=== PATIENT | male | born 1970 | race Caucasian/White ===

== ENCOUNTER 2020-02-09 16:47 | Outpatient (REF) | payer OTHER, SELFPAY | END 2020-02-09 16:48 | disposition home or self-care (01) | LOC: HO.LAB 16:47 | PROVIDERS: Visit Provider Internal Medicine | DX: Z20.828 Contact with and (suspected) exposure to other viral communicable diseases (principal) | CPT/HCPCS: C9803; U0003 ==

== ENCOUNTER 2021-09-30 08:52 | Outpatient (REF) | payer OTHER, SELFPAY ==
[2021-09-30 11:19] LABS: MANUAL DIFF FLAG NO
[2021-09-30 11:32] LABS: Basophils Absolute Auto 0.1 X10*3/uL (0.0-0.2); Basophils Percent Auto 0.8 % (0-2); Eosinophils Absolute Auto 0.3 X10*3/uL (0.0-0.4); Eosinophils Percent Auto 3.2 % (0-4); Hematocrit 46.3 % (42.0-52.0); Hemoglobin 15.5 g/dl (14.0-18.0); Imm Gran Abs Auto 0.03 X10*3/uL (0.00-0.03); Imm Gran Pct Auto 0.4 % (0.0-0.4); Lymphocytes Absolute Auto 2.6 X10*3/uL (1.2-4.9); Lymphocytes Percent Auto 30.6 % (20-40); Mean Corpuscular HGB Conc 33.5 g/dl (31.0-36.0); Mean Corpuscular Hemoglobin 29.3 pg (27.0-33.0); Mean Corpuscular Volume 87.5 fL (80.0-98.0); Mean Platelet Volume 11.3 fL (9.4-12.4); Monocytes Absolute Auto 0.5 X10*3/uL (0.1-1.2); Platelet Count 279 X10*3/uL (160-400); Red Blood Count 5.29 X10*6/uL (4.60-5.80); Red Cell Distribution Width 12.6 % (11.0-16.0); White Blood Count 8.5 X10*3/uL (4.8-10.8)
[2021-09-30 11:37] LABS: Estimated Average Glucose 235 mg/dL; Hemoglobin A1c % 9.8 %
[2021-09-30 11:39] LABS: Appearance Urine Clear; Color Urine Yellow; Glucose Urine UA 100 mg/dL (Negative); Leukocyte Esterase Urine Negative (Negative); Nitrite Urine Negative (Negative); PH 5.5 (5.0-8.0); Specific Gravity - Urine 1.025 (1.005-1.025); Urine Blood Negative (Negative); Urine Ketones Negative (Negative); Urine Protein Negative (Neg-Trace)
[2021-09-30 12:00] LABS: Alanine Aminotransferase 77 U/L (0-40); Albumin Level 4.2 g/dL (3.5-5.0); Alkaline Phosphatase 112 U/L (39-117); Anion Gap 14 (12-20); Aspartate Amino Transferase 19 U/L (5-37); Bilirubin Total 0.6 mg/dL (0.0-1.0); Blood Urea Nitrogen 13 mg/dL (9-16); Calcium 9.6 mg/dL (8.4-10.2); Carbon Dioxide 27 mmol/L (22-29); Chloride 100 mmol/L (96-108); Cholesterol 210 mg/dL; Estimated Glomerular Filt Rate > 60; Glucose Fasting 292 mg/dL (60-99); HDL Cholesterol 41 mg/dL; LDL Cholesterol Calculated 138 mg/dl; Potassium 4.4 mmol/L (3.3-5.1); Sodium 137 mmol/L (135-145); Triglycerides 156 mg/dL
[2021-09-30 12:08] LABS: Prostate Specific Antigen Scr 0.83 ng/mL (<0.05-4.0); TSH reflex Free T4 1.35 uIU/mL (0.32-4.0)
[2021-09-30 12:28] LABS: Creatinine Urine 194.63 mg/dL; Microalbum/Creatinine Ratio Ur 6.1 ug/mg cr
== END 2021-09-30 08:53 | disposition home or self-care (01) ==
LOC: HO.HMGCLDS 08:52
PROVIDERS: PCP Nurse Practitioner Family; Visit Provider Nurse Practitioner Family
DX: Z00.00 Encounter for general adult medical examination without abnormal findings (principal); Z12.5 Encounter for screening for malignant neoplasm of prostate; E11.9 Type 2 diabetes mellitus without complications
CPT/HCPCS: 36415; 80053; 80061; 81003; 82043; 83036; 84153; 84443; 85025

== ENCOUNTER → 2021-10-16 12:56 | Outpatient (REF) | payer OTHER, SELFPAY ==
--- NOTE | 2021-10-16 12:59 | CA_ITS ---
Transthoracic Echocardiogram Patient (Last, First, Middle): Lawrence Bustamante F Gender: Male Date of : 1970 Age: 51 Procedure Date: 10/16/2021 Procedure Type: Transthoracic Echocardiogram Location: OP Height: 190.5 cm Weight: 129.28 kg BSA: 2.55 m2 Heart Rate: 69 bpm BP: 145 / 80 mmHg Software Integration Developer: SALVADOR Referring MD: Jose Alejandro Gillis [facility] Transportation Mechanic: Tim Mcwilliams MD Symptoms: Z82.49 - Family history of ischemic heart disease and other diseases of ... Study Quality: Technically Difficult/Contrast ECG Rhythm: Sinus Conclusions: - 1. Technically limited study despite use of contrast agent 2. Normal LV systolic function with grade 1 diastolic dysfunction 3. Limited visualization of cardiac valves with normal cardiac valvular Doppler Findings Procedure Information Contrast agent, definity, is being given per protocol without apparent complications. Left Ventricle Normal left ventricular size, thickness, and systolic function. The visually estimated ejection fraction is between 60-65%. Spectral Doppler is indicative of an impaired relaxation filling pattern. E/E prime ratio is <8, consistent with normal filling pressures. Evidence suggests grade I (mild) diastolic dysfunction. Right Ventricle Normal right ventricular cavity size. Atria The left atrium is normal in size. Interatrial shunt cannot be excluded. The right atrium was not well visualized. Aortic Valve The aortic valve was not well visualized. Mitral Valve The mitral valve was not well visualized. There is trace mitral valve regurgitation. There is no mitral valve stenosis. Pulmonic Valve The pulmonic valve was not well visualized. Tricuspid Valve The tricuspid valve was not well visualized. Tricuspid regurgitation envelope is inadequate for calculation of right ventricular systolic pressure. Great Vessels All visible segments of the aorta are normal in size. The pulmonary artery was not well visualized. Venous The inferior vena cava is normal in size. Pericardium/Pleural The pericardium was not well visualized. Prior Study Comparison No prior study available for comparison. Measurements 2D Linear Measurements IVSd: 1.18 0.6-0.9/0.6-1.0 cm LVIDd: 4.65 3.9-5.3/4.2-5.9 cm LVIDd Index: 1.82 2.4-3.2/2.2-3.1 cm/m2 LVIDs: 2.37 2.0-3.6 cm LVPWd: 0.89 0.7-1.1 cm LA Diam: 3.10 2.7-3.8/3.0-4.0 cm LAIDs Index: 1.22 1.5-2.3 cm/m2 LV Mass: 211.46 67-162/88-224 g LV Mass Index: 82.93 43-95/49-115 g/m2 LVOT Diam: 2.10 3.0+(-)1.3 cm 2D Systolic Function EF 4C: 58.20 >55% EF 2C: 60.80 >55% EF BiP: 60.30 >55% Mitral Valve MV Pk E: 0.77 MV PK A: 0.70 MV Decel Time: 265.00 E/A: 1.10 E'Lateral: 11.20 E'Medial: 10.30 E/E' Med: 7.40 E/E' Lat: 6.80 PHT: 78.00 MVA PHT: 2.82 Decel [place]: 2.89 Aortic Valve AoV Pk Gerry: 1.39 AoV Mn Gerry: 1.02 AoV VTI: 0.25 AoV Pk Grad: 8.00 Aov Mn Grad: 5.00 WARREN Cont.VTI: 2.87 LVOT LVOT Pk Gerry: 1.01 LVOT Mn Gerry: 0.74 LVOT VTI: 0.20 LVOT Pk Grad: 4.00 LVOT Mn Grad: 2.00 LVOT Diam: 2.10 LVOT Area: 3.46 Diastolic Function MV Pk E: 0.77 MV Pk A: 0.70 E/A: 1.10 E'Medial: 10.30 E/E' Med: 7.40 E' Laterial: 11.20 E/E' Lat: 6.80 Right Ventricle TAPSE (mm): 20.90 TVS' Gerry: 12.00 Great Vessels Aorta Sinus of Valsalva: 3.20 2.0-3.5 cm Ao Asc: 3.30 2.1-3.4 cm Pulmonary Valve PV Pk Gerry: 1.11 Peak PV Grad: 5.00 Updated in Other Vendor System with Status of Final Tim Mcwilliams MD electronically signed on 10/16/2021 4:19:23 PM with status of Final
== END ==
LOC: HO.CARD 12:56
PROVIDERS: Visit Provider Nurse Practitioner Family
DX: Z82.49 Family history of ischemic heart disease and other diseases of the circulatory system (principal)
CPT/HCPCS: 93306; Q9957

== ENCOUNTER 2021-10-23 08:28 | Outpatient (REF) | payer OTHER, SELFPAY ==
--- NOTE | ~2021-10-23 | US_ITS ---
EXAMINATION: US ABDOMEN LIMITED CLINICAL INFORMATION: Other specified diseases of the liver. Liver cyst. COMPARISON: Abdominal ultrasound 03/18/2019. Limited abdominal ultrasound 11/30/2018. TECHNIQUE: Real-time imaging of the right upper quadrant abdominal viscera. FINDINGS: PANCREAS: Normal. LIVER: The liver is normal in size. The liver contour is normal. The liver is echogenic with an area of focal fatty sparing around the gallbladder. There is an anechoic cyst right hepatic lobe measuring 1.1 x 0.86 x 1.0 cm. There is no intrahepatic biliary duct dilatation seen. GALLBLADDER: Normal. The gallbladder is physiologically distended without evidence of stones, sludge, polyps, wall thickening or pericholecystic fluid. COMMON BILE DUCT: Normal in caliber measuring 0.3 cm in diameter. RIGHT KIDNEY: Normal. No hydronephrosis. No renal calculi or focal parenchymal lesions. The kidney measures 11.6 cm in maximum dimension. FREE FLUID: None. US/US abdomen limited IMPRESSION: Anechoic right hepatic lobe cyst measuring 1.1 cm. Previously, a left hepatic lobe cyst was seen measuring 1.3 x 1.2 x 1.5 cm. That cyst is not visualized on the present exam. Mild hepatic steatosis, stable.
== END 2021-10-23 08:29 | disposition home or self-care (01) ==
LOC: HO.HMGCX 08:28
PROVIDERS: Visit Provider Nurse Practitioner Family
DX: K76.89 Other specified diseases of liver (principal)
CPT/HCPCS: 76705

== ENCOUNTER → 2022-06-20 10:45 | Outpatient (BNVA) | payer SELFPAY | PROVIDERS: PCP Nurse Practitioner Family; Visit Provider Physician Assistant Medical | DX: Z02.79 Encounter for issue of other medical certificate (principal) ==

== ENCOUNTER 2022-08-19 13:16 | Outpatient (AMB) | payer OTHER, SELFPAY ==
--- NOTE | 2022-08-19 13:19 | MHC.PC.OV ---
Vital Signs 08/19/22 13:20 Height 6 ft 3 in Weight 294 lb 6 oz BMI 36.8 BP 130/74 Blood Pressure Location Rt brachial Position Sitting Pulse 54 Pulse Source Pulse Oximeter Pulse Oximetry (%) 96 Oxygen Delivery Method Room Air Intake Visit Reasons: 4 month follow up On medication Allergies No Known Allergies Allergy (Verified 08/19/22 13:21) Medication List - Last Reconciled 08/19/22 by AARON Carpenter alprazolam 0.5 mg PO DAILY PRN 30 days betamethasone dipropionate 0.05% 1 appl topical DAILY PRN FreeStyle Faizan 2 [place] (flash glucose scanning reader) tid testing NS FreeStyle Faizan 2 Sensor (flash glucose sensor) tid testing NS metformin 1,000 mg PO BID 90 days peg 3350-electrolytes 236-22.74-6.74 -5.86 gram (Golytely) 240 mL PO Q10M 1 day sildenafil 50 mg PO DAILY PRN 12 days Tobacco use date assessed: 08/19/22 Dental Screening Dental Screen Date: 08/19/22 Did you have a dental visit in the last 12 months?: Yes Did you have a dental problem in the last 6 months where you did not have access to dental care?: No Was dental information given to patient?: Patient has dentist HPI 4 month follow up On medication HPI Details Pt is a diabetic, managed with metformin 1000mg bid. A1c in office today is 8.0. Microalbumin is up to date. Denies polyuria, polydipsia, and neuropathy. Pt denies any signs and symptoms of hypoglycemia and does know how to correct it. Will start ozempic 0.25mg. Pt was treated for an assumed tick bite to his LUE in May, see walk-in documentation. He was given doxy for 14 days. Pt reports ongoing joint pains. Will order tick testing. Pt would like to know his blood type, will order labs. [facility] Medical History Erectile dysfunction Surgical History Hx of colonoscopy Family History Sister Mental health disorder Sister Mental health disorder Mother Mental health disorder Social History Housing: House Patient Tobacco Use Status: Former Tobacco user Quit Date: quit 1993 e-Cigarette/Vaping Use: Never Used Second Hand Smoke Exposure: No service: No Current occupational status: employed Current occupation: [employer] Current occupational exposures/hazards: No Cognitive needs: No Hearing needs: No Vision needs: No Questionnaire Thrive Questionnaire Date Thrive assessed: 09/30/21 LEONEL-7 AMB Questionnaire LEONEL-7 Date LEONEL - 7 assessed: 09/30/21 Source: Developed by Drs. Emmanuel Harrison, Tonya Sargent, Brett Wadsworth and colleagues, with an educational chicho from [employer]. Review of Systems Const Reports as per HPI Physical exam (Primary Care) Vital Signs: Last Vital Signs Pulse 54 08/19/22 13:20 BP 130/74 08/19/22 13:20 Pulse Ox 96 08/19/22 13:20 Oxygen Delivery Method Room Air 08/19/22 13:20 BMI result Body Mass Index 36.8 Tobacco/Smoking Status: Tobacco use Status Tobacco use date assessed 08/19/22 08/19/22 13:22 Patient Tobacco Use Status Former Tobacco user 08/19/22 13:22 e-Cigarette/Vaping Use Never Used 08/19/22 13:22 Thrive Assessment: Date of Thrive Assessment Date Thrive assessed 09/30/21 08/19/22 13:22 Const General: cooperative Nutritional Appearance: obese Orientation/consciousness: patient oriented x3 Resp Auscultation: clear to auscultation bilaterally Neuro General: patient oriented x3 Extrem Other: bilat feet: + sensation with use of monofilament Psych Appearance: grossly normal Mental Status: mental status grossly normal Speech and movement: Normal speech and movement present Affect: normal affect Attitude: cooperative Thought process: Normal thought process present Thought content: Normal thought content present Insight: Good insight present (Psych) Judgement: Good judgement present (Psych) Results AMB Hemoglobin A1c AMB Hemoglobin A1c 8.0 % Last Edit by Aileen Mello CMA on 08/19/22 13:44 Results Reviewed Results Reviewed: Laboratory Last Values Hgb A1c (Clinic) 8.0 % (4.0-6.0) H 08/19/22 13:42 Assessment and Plan Assessment & Plan (1) Tick bite: Code(s): W57.XXXA - Bitten or stung by nonvenomous insect and other nonvenomous arthropods, initial encounter (2) Diabetes: Code(s): E11.9 - Type 2 diabetes mellitus without complications (3) Blood typing encounter: Code(s): Z.83 - Encounter for blood typing (4) Screening PSA (prostate specific antigen): Code(s): Z12.5 - Encounter for screening for malignant neoplasm of prostate Plan The patient agreed to the use of a medical billing assistant for this encounter. Scribed for Jose Alejandro Gillis [employer]ACH[employer] LEAD[employer]- by Dee Dave medical billing assistant, on 08/19/2022 at 13:45 EST. Orders: Orders Tick-borne Disease Molecular Today W57.XXXA - Bitten or stung by nonvenomous insect and other nonvenomous arthropods, initial encounter Microalbumin, Random (w Creat) Today E11.9 - Type 2 diabetes mellitus without complications ABO RH Type Today Z01.83 - Encounter for blood typing Prostate Specific Antigen Scr Today Z12.5 - Encounter for screening for malignant neoplasm of prostate AMB Hemoglobin A1c Today E11.9 - Type 2 diabetes mellitus without complications Medications: New semaglutide (Ozempic) for 4 weeks 0.25 mg (0.4 mL) subcut QWEEK 3 mL 0RF Coding Level of Care Code Est Pt Level 3 (49488) Diagnoses Tick bite W57.XXXA Diabetes E11.9 Blood typing encounter Z.83 Screening PSA (prostate specific antigen) Z12.5
[2022-08-19 13:20] VITALS: BP 130/74; PULSE 54; O2SAT 96; BMI 36.8
== END 2022-08-19 14:15 | disposition home or self-care (01) ==
PROVIDERS: Visit Provider Nurse Practitioner Family
DX: S40.862D Insect bite (nonvenomous) of left upper arm, subsequent encounter (principal); W57.XXXD Bitten or stung by nonvenomous insect and other nonvenomous arthropods, subsequent encounter; E11.9 Type 2 diabetes mellitus without complications; Z01.83 Encounter for blood typing; Z12.5 Encounter for screening for malignant neoplasm of prostate
CPT/HCPCS: 83036; 99213

== ENCOUNTER 2022-08-21 08:10 | Outpatient (REF) | payer OTHER, SELFPAY ==
[2022-08-21 11:08] LABS: MANUAL DIFF FLAG NO
[2022-08-21 11:29] LABS: Appearance Urine Clear; Color Urine Yellow; Glucose Urine UA Negative (Negative); Leukocyte Esterase Urine Negative (Negative); Nitrite Urine Negative (Negative); Urine Blood Negative (Negative); Urine Ketones Negative (Negative); Urine Protein Negative (Neg-Trace)
[2022-08-21 11:34] LABS: Basophils Absolute Auto 0.1 X10*3/uL (0.0-0.2); Basophils Percent Auto 0.6 % (0-2); Eosinophils Absolute Auto 0.3 X10*3/uL (0.0-0.4); Eosinophils Percent Auto 3.8 % (0-4); Hematocrit 45.2 % (42.0-52.0); Hemoglobin 15.1 g/dl (14.0-18.0); Imm Gran Abs Auto 0.01 X10*3/uL (0.00-0.03); Imm Gran Pct Auto 0.1 % (0.0-0.4); Lymphocytes Absolute Auto 2.3 X10*3/uL (1.2-4.9); Lymphocytes Percent Auto 28.4 % (20-40); Mean Corpuscular HGB Conc 33.4 g/dl (31.0-36.0); Mean Corpuscular Volume 86.8 fL (80.0-98.0); Mean Platelet Volume 10.7 fL (9.4-12.4); Monocytes Absolute Auto 0.5 X10*3/uL (0.1-1.2); Monocytes Percent Auto 6.1 % (2-11); Neutrophils Absolute Auto 4.9 x10*3/uL (2.0-8.3); Platelet Count 276 X10*3/uL (160-400); Red Blood Count 5.21 X10*6/uL (4.60-5.80); Red Cell Distribution Width 12.6 % (11.0-16.0)
[2022-08-21 12:11] LABS: Alanine Aminotransferase 59 U/L (0-40); Albumin Level 3.9 g/dL (3.5-5.0); Alkaline Phosphatase 89 U/L (39-117); Anion Gap 13 (12-20); Aspartate Amino Transferase 17 U/L (5-37); Bilirubin Total 0.9 mg/dL (0.0-1.0); Blood Urea Nitrogen 11 mg/dL (9-16); Calcium 10.2 mg/dL (8.4-10.2); Carbon Dioxide 25 mmol/L (22-29); Chloride 104 mmol/L (96-108); Cholesterol 175 mg/dL; Estimated Glomerular Filt Rate > 60; Glucose Fasting 223 mg/dL (60-99); HDL Cholesterol 35 mg/dL; LDL Cholesterol Calculated 117 mg/dl; Sodium 138 mmol/L (135-145); Total Protein 6.7 g/dL (6.5-8.0); Triglycerides 118 mg/dL
[2022-08-21 12:16] LABS: TSH reflex Free T4 1.02 uIU/mL (0.32-4.0)
[2022-08-21 12:28] LABS: Prostate Specific Antigen Scr 1.21 ng/mL (<0.05-4.0)
[2022-08-21 12:39] LABS: Creatinine Urine 147.63 mg/dL
[2022-08-26 02:27] LABS: A. Phagocytphilium DNA,RT-PCR NOT DETECTED (NOT DETECTED); Babesia Microti DNA, RT-PCR NOT DETECTED (NOT DETECTED); Borrelia Miyamotoi,DNA RT-PCR NOT DETECTED (NOT DETECTED); E.Chaffeensis DNA RT-PCR NOT DETECTED (NOT DETECTED); Lyme(Borrelia ssp)DNA RT-PCR NOT DETECTED (NOT DETECTED)
== END 2022-08-21 08:11 | disposition home or self-care (01) ==
LOC: HO.HMGCLDS 08:10
PROVIDERS: PCP Nurse Practitioner Family; Visit Provider Nurse Practitioner Family
DX: Z01.83 Encounter for blood typing (principal); Z12.5 Encounter for screening for malignant neoplasm of prostate; E11.9 Type 2 diabetes mellitus without complications; T14.8XXA Other injury of unspecified body region, initial encounter; W57.XXXA Bitten or stung by nonvenomous insect and other nonvenomous arthropods, initial encounter
CPT/HCPCS: 36415; 80053; 80061; 81003; 82043; 84153; 84443; 85025; 86900; 86901; 87798; 87801

== ENCOUNTER 2022-09-23 07:27 | Day surgery (SDC) | payer OTHER, SELFPAY ==
[2022-09-19 13:47] VITALS: BMI 36.7
--- NOTE | 2022-09-22 10:21 | HO.ANESPROP2 ---
Documented by User: Kim Kumar NP 09/22/22 10:23 HPI - Anesthesia Eval Consult details Narrative: 52yo M for Colonoscopy PMFSH Active Problems Active Problems: All Active Problems (Updated 09/19/22 @ 11:37 by Makayla Ortega RN) Physical exam (Acute) Screening PSA (prostate specific antigen) (Acute) Diabetes (Acute) Screening for colon cancer (Acute) Family history of cardiovascular disorder (Acute) Chest discomfort (Acute) Liver cyst (Acute) Obesity (BMI 35.0-39.9 without comorbidity) (Acute) Pre-op examination (Acute) Cellulitis of arm, left (Acute) Tick bite (Acute) Blood typing encounter (Acute) Past Medical History Medical History Diabetes Erectile dysfunction Family History Family History Sister Mental health disorder Sister Mental health disorder Mother Mental health disorder Surgical History Surgical History Hx of colonoscopy Social History Social History Housing: House Patient Tobacco Use Status: Former Tobacco user Quit Date: 1993 Tobacco use type: Cigarette e-Cigarette/Vaping Use: Never Used Second Hand Smoke Exposure: No Use of substances other than those prescribed or required for medical reasons: No Have you been hit, kicked, punched, or otherwise hurt by someone within the past year? If so, by whom?: No Are you DNR?: No Advance Directives: No Advance Directives Information Provided: Yes (brochure mailed) Advance Directives on File: No Recently lost weight without trying: No Eating poorly because of decreased appetite: No Nutrition Risks: No Nutritional Risk service: No Current occupational status: employed Current occupation: [employer] Current occupational exposures/hazards: No Cognitive needs: No Hearing needs: No Vision needs: No Meds Allergies Allergy/AdvReac Type Severity Reaction Status Date / Time No Known Allergies Allergy Verified 08/19/22 13:21 Exam Exam Date and Time: September 22, 2022 1021 Height,Weight and Vital Signs: Height 6 ft 3 in Weight 133.356 kg Pertinent Lab Results Pertinent Lab Results: Laboratory Tests 08/21/22 08/21/22 08:18 08:18 WBC 8.0 Hgb 15.1 Hct 45.2 Plt Count 276 Sodium 138 Potassium 4.0 Chloride 104 Carbon Dioxide 25 BUN 11 Creatinine 0.78 Narrative Narrative: EKG 01/2022 NSR ECHO 10/2021 Conclusions: - 1. Technically limited study despite use of contrast agent ? ? 2. Normal LV systolic function with grade 1 diastolic dysfunction 3. Limited visualization of cardiac valves with normal cardiac ? valvular Doppler ? Assessment and Plan Assessment Anesthesia Assessment: Chart Reviewed Documented by User: Lois Allen MD 09/23/22 09:07 [facility] Past Medical History Medical History Diabetes Erectile dysfunction Family History Family History Sister Mental health disorder Sister Mental health disorder Mother Mental health disorder Family history of problems with anesthesia: No Surgical History Surgical History Hx of colonoscopy History of Problems with Anesthesia: No Social History Social History Housing: House Patient Tobacco Use Status: Former Tobacco user Quit Date: 1993 Tobacco use type: Cigarette e-Cigarette/Vaping Use: Never Used Second Hand Smoke Exposure: No Use of substances other than those prescribed or required for medical reasons: No Have you been hit, kicked, punched, or otherwise hurt by someone within the past year? If so, by whom?: No Are you DNR?: No Advance Directives: No Advance Directives Information Provided: Yes (brochure mailed) Advance Directives on File: No Recently lost weight without trying: No Eating poorly because of decreased appetite: No Nutrition Risks: No Nutritional Risk service: No Current occupational status: employed Current occupation: [employer] Current occupational exposures/hazards: No Cognitive needs: No Hearing needs: No Vision needs: No Meds Allergies Allergy/AdvReac Type Severity Reaction Status Date / Time No Known Allergies Allergy Verified 08/19/22 13:21 Exam Airway Heart: rrr Lungs: cta Assessment and Plan Assessment Anesthesia Assessment: Anesthesia Plan Discussed Final Anesthetic Review Family History of Problems with Anesthesia: No History of Problems with Anesthesia: No NPO: Yes ASA Class: III Final Preanesthetic Review: No Changes in Pt Med Stat, Meds/Allgs Chart Reviewed, Consent Obtained/Reviewed and Anes Risks/Benef Reviewed Patient Risk: Low Procedure Risk: Low Anesthetic Plan Anesthetic Plan: MAC: Disposition: Standard PACU
[2022-09-23 07:57] VITALS: BP 155/92; PULSE 68; RESP 18; TEMP 36.2; O2SAT 98; BMI 36.2
[2022-09-23 07:59] LABS: Glucose, Whole Blood 160 mg/dL (60-115)
--- NOTE | 2022-09-23 08:08 | P.HPSUR_ITS ---
Pre-Procedural Eval Section A Date of Service: 09/23/22 Section B Chief Complaint: screening Details of Present Illness: sister and aunt with colon cancer Relevant Family History (Specify if Yes): Yes Relevant Social History: None Present Medications: see Short Stay Collaborative assessment Medical History: Significant History (Diabetes Erectile dysfunction) History of Previous Operations: Relevant previous surgery/procedure and date(s) (Hx of colonoscopy) Allergies: Allergies Allergy/AdvReac Type Severity Reaction Status Date / Time No Known Allergies Allergy Verified 08/19/22 13:21 Review of Systems Sugical H&P ROS: Negative: Constitution, Cardiovascular, Respiratory, Neurological, Psychiatric, Hem-Onc, Allergic/Immunologic, Gastrointestinal, Genitourinary, Musculoskeletal, Integumentary, Endocrine and Eyes/Ears/Nose/Thro at Exam Surgical H&P Exam: Normal: HEENT, Normal: Heart, Normal: Lungs, Normal: Extremities, Normal: Abdomen, Normal: Skin and Normal: Neurological Plan Diagnosis/Plan: Unchanged I have reviewed the history and physical and performed a pertinent physical examination on my patient. No changes have occurred unless specified. Time Spent With Patient Time: Total time managing care of this patient today ____ minutes.
[2022-09-23] MEDS: Lactated Ringers 1,000 ML 100 ML IVCONT (08:18)
--- NOTE | 2022-09-23 08:54 | P.OP_ITS ---
Operative Note Operative Note Date of Service: 09/23/22 Narrative: Operative Information Procedure Description: Colonoscopy Indication: screening Anesthesia: MAC COLONOSCOPY Instrument: Olympus variable stiffness ADULT scope 190L Colonoscopy Monitoring: Vital signs and clinical assessment, continuous EKG monitoring, Pulse oximetry, Carbon Dioxide monitoring and blood pressure monitoring were done throughout the procedure. Colon withdrawal time was 10 minutes. Procedure: The patient was placed in the left lateral decubitis position and pre-procedure medications were administered. After a digital rectal examination of the ano-rectum, the video colonoscope was inserted into the rectum and advanced through the colon to the cecum/TI. The colonoscope was slowly withdrawn in a retrograde panoramic fashion and the colon mucosa was carefully examined including a retroflexed view of the rectum. Findings and interventions are described below. Procedure Difficulty: easy Findings: Terminal Ileum-normal Cecum:normal Ascending Colon: normal Transverse Colon -normal Descending Colon:normal Sigmoid Colon: normal Rectum: Retroflexion with small to medium sized internal hemorrhoids, grade I, 4-6 mm sessile polyp removed with cold snare Anorectum - normal Colon preparation: [place] Bowel Preparation Scale Right colon; 2 Transverse colon: 3 Left colon; 3 (0 = Unprepared colon segment with mucosa not seen due to solid stool that cannot be cleared. 1 = Portion of mucosa of the colon segment seen, but other areas of the colon segment not well seen due to staining, residual stool and/or opaque liquid. 2 = Minor amount of residual staining, small fragments of stool and/or opaque liquid, but mucosa of colon segment seen well. 3 = Entire mucosa of colon segment seen well with no residual staining, small fragments of stool or opaque liquid) Impression and Post Procedure Diagnosis: polyp internal hemorrhoids Plan: High fiber diet leaflet Avoid straining at stool, epsom salts and sitz bath, anusol supps or cream Repeat Colonoscopy in 5 years due to FH of colon cancer or earlier if clinically indicated Above findings were reviewed with the patient and relevant handouts were provided if indicated.
[2022-09-23 09:21] VITALS: BP 141/74; PULSE 78; RESP 18; TEMP 36.7; O2SAT 97
[2022-09-23 09:36] VITALS: BP 103/67; PULSE 69; RESP 18; TEMP 36.7; O2SAT 98
[2022-09-23 10:03] LABS: Glucose, Whole Blood 182 mg/dL (60-115)
[2022-09-23] MEDS: Acetaminophen 325 MG TABLET 650 MG PO (10:10)
== END 2022-09-23 10:37 | disposition home or self-care (01) ==
PROVIDERS: PCP Nurse Practitioner Family; Visit Provider Internal Medicine Gastroenterology
PROC: 0DJD8ZZ Inspection of Lower Intestinal Tract, Via Natural or Artificial Opening Endoscopic (ICD-10-PCS; CPT 45378; principal; 2022-09-23 09:00)
DX: Z12.11 Encounter for screening for malignant neoplasm of colon (principal); K62.1 Rectal polyp; K64.0 First degree hemorrhoids; E11.9 Type 2 diabetes mellitus without complications; N52.9 Male erectile dysfunction, unspecified; Z79.84 Long term (current) use of oral hypoglycemic drugs; Z87.891 Personal history of nicotine dependence
CPT/HCPCS: 45385; 82947; 88305

== ENCOUNTER → 2022-09-23 07:27 | Outpatient (BNV) | payer OTHER, SELFPAY | PROVIDERS: PCP Nurse Practitioner Family; Visit Provider Internal Medicine Gastroenterology | DX: Z12.11 Encounter for screening for malignant neoplasm of colon (principal); K62.1 Rectal polyp; K64.8 Other hemorrhoids | CPT/HCPCS: 45385 ==

== ENCOUNTER 2022-10-01 07:29 | Outpatient (AMB) | payer OTHER, SELFPAY ==
--- NOTE | 2022-10-01 07:36 | A.OFFPC_ITS ---
Vital Signs 10/01/22 07:37 Height 6 ft 3 in Weight 290 lb 8 oz BMI 36.3 BP 110/72 Blood Pressure Location Rt brachial Position Sitting Pulse 73 Pulse Source Pulse Oximeter Pulse Oximetry (%) 97 Oxygen Delivery Method Room Air Intake Visit Reasons: Annual Physical Allergies No Known Allergies Allergy (Verified 10/01/22 07:39) Medication List - Last Reconciled 10/01/22 by ROSALINO CarpenterP- alprazolam 0.5 mg PO DAILY PRN 30 days atorvastatin 10 mg PO BEDTIME 90 days betamethasone dipropionate 0.05% 1 appl topical DAILY PRN FreeStyle Faizan 2 [place] (flash glucose scanning reader) tid testing NS FreeStyle Faizan 2 Sensor (flash glucose sensor) tid testing NS ibuprofen (Advil) 400 mg PO Q8H PRN lisinopril 2.5 mg PO DAILY 30 days metformin 1,000 mg PO BID 90 days sildenafil 50 mg PO DAILY PRN 12 days Tobacco use date assessed: 10/01/22 Dental Screening Dental Screen Date: 10/01/22 Did you have a dental visit in the last 12 months?: Yes Did you have a dental problem in the last 6 months where you did not have access to dental care?: No HPI Annual Physical HPI Details Pt is here for a PE. Will order labs. Colon screen is up to date. PSA is up to date. Pt is a diabetic. Last A1C was 8.0, microalbumin is up to date. Denies polyuria, polydipsia, and neuropathy. Pt denies any signs and symptoms of hypoglycemia and does know how to correct it. Pt reports that his last blood sugar was 180. Pt reports no longer taking ozempic because it caused stomach issues. Will start jardiance 10mg. Will also start low-dose JEANINE and statin. Pt reports a tick bite in May and was treated with doxy for 14 days. Pt never saw a tick but assumed it was a tick bite. He had tick testing in August, which was negative. Since then pt has had right elbow pain with severe weakness of his RUE. Pt has also had excessive sweating since his tick bite. He has always swea yassine but reports that it is worse. Will order MRI of elbow and repeat tick panel. Will also refer to [place]. [facility] Medical History Diabetes Erectile dysfunction Surgical History Hx of colonoscopy Family History Sister Mental health disorder Sister Mental health disorder Mother Mental health disorder Social History Housing: House Patient Tobacco Use Status: Former Tobacco user Quit Date: 1993 Tobacco use type: Cigarette e-Cigarette/Vaping Use: Never Used Second Hand Smoke Exposure: No service: No Current occupational status: employed Current occupation: [employer] Current occupational exposures/hazards: No Cognitive needs: No Hearing needs: No Vision needs: No Questionnaire Thrive Questionnaire Date Thrive assessed: 09/30/21 LEONEL-7 AMB Questionnaire LEONEL-7 Date LEONEL - 7 assessed: 09/30/21 Source: Developed by Drs. Emmanuel Harrison, Tonya Sargent, Brett Wadsworth and colleagues, with an educational chicho from [employer]. Review of Systems Const Denies chills and Denies fever(s) Eyes Denies blurry vision ENT Denies vertigo, Denies dizziness and Denies sore throat Card Denies chest pain at rest, Denies chest pain with activity, Denies diaphoresis, Denies dyspnea and Denies dyspnea on exertion Resp Denies cough, Denies dyspnea, Denies dyspnea on exertion and Denies wheezing GI Denies abdominal pain, Denies melena, Denies hematochezia, Denies constipation, Denies diarrhea and Denies loose stools Denies hematuria Musc Denies numbness and Denies tingling Skin/Breast Denies lesions Neuro Denies vertigo, Denies dizziness, Denies numbness and Denies tingling Psych Denies anxiety, Denies depression, Denies homicidal ideation, Denies suicidal ideation and Denies other (substance abuse) Aller/Immun Denies wheezing Physical exam (Primary Care) Vital Signs: Last Vital Signs Pulse 73 10/01/22 07:37 BP 110/72 10/01/22 07:37 Pulse Ox 97 10/01/22 07:37 Oxygen Delivery Method Room Air 10/01/22 07:37 BMI result Body Mass Index 36.3 Tobacco/Smoking Status: Tobacco use Status Tobacco use date assessed 10/01/22 10/01/22 07:40 Patient Tobacco Use Status Former Tobacco user 10/01/22 07:40 Tobacco use type Cigarette 10/01/22 07:40 e-Cigarette/Vaping Use Never Used 10/01/22 07:40 Thrive Assessment: Date of Thrive Assessment Date Thrive assessed 09/30/21 10/01/22 07:40 Const General: cooperative Nutritional Appearance: obese Orientation/consciousness: patient oriented x3 HENMT Head: Yes normal to inspection, Yes normocephalic and Yes atraumatic Ears: TM's normal bilaterally Eyes General: appearance normal, both eyes and all related structures Alignment and Position: alignment normal and position normal Neck Neck: Yes normal visual inspection and Yes no lymphadenopathy Thyroid: Thyroid normal Resp Effort & Inspection: normal respiratory effort Auscultation: clear to auscultation bilaterally Cardio Rate: regular rate Rhythm: regular rhythm Heart sounds: S1 normal heart sound present, S2 normal heart sound present and no murmurs GI Palpation (GI): Soft to palpation and nontender Auscultation: normal bowel sounds Other: refused exam Skin Rashes: no rashes Neuro General: patient oriented x3, moves all extremities, no focal motor deficits and deep tendon reflexes 2+ bilaterally Romberg Test: Negative Extrem Other: with wrist extension against resistance severe weakness and tenderness to right lateral epicondyle region, discomfort noted with elbow flexion, tenderness with palpation of right epicondyle region. bilat feet: + sensation with use of monofilament Psych Appearance: grossly normal Mental Status: mental status grossly normal Speech and movement: Normal speech and movement present Affect: normal affect Attitude: cooperative Thought process: Normal thought process present Thought content: Normal thought content present Insight: Good insight present (Psych) Judgement: Good judgement present (Psych) Assessment and Plan Assessment & Plan (1) Tick bite: Code(s): W57.XXXA - Bitten or stung by nonvenomous insect and other nonvenomous arthropods, initial encounter Plan: Tick panel ordered (2) Right elbow pain: Code(s): M25.521 - Pain in right elbow Plan: MRI ordered (3) Physical exam: Code(s): Z00.00 - Encounter for general adult medical examination without abnormal findings (4) Diabetes: Code(s): E11.9 - Type 2 diabetes mellitus without complications Plan The patient agreed to the use of a medical radiation dosimetrist for this encounter. Scribed for Jose Alejandro Gillis [facility] by Dee Dave medical radiation dosimetrist, on 10/01/2022 at 07:45 EST. Orders: Orders Tick-borne Disease Molecular Today W57.XXXA - Bitten or stung by nonvenomous insect and other nonvenomous arthropods, initial encounter MR elbow RT wo con Today M25.521 - Pain in right elbow Comprehensive [place]. Panel Fast Today E11.9 - Type 2 diabetes mellitus without complications, Z00.00 - Encounter for general adult medical examination without abnormal findings Lipid Panel Today E11.9 - Type 2 diabetes mellitus without complications, Z00.00 - Encounter for general adult medical examination without abnormal findings TSH reflex Free T4 Today E11.9 - Type 2 diabetes mellitus without complications, Z00.00 - Encounter for general adult medical examination without abnormal findings Complete Blood Count Auto Diff Today E11.9 - Type 2 diabetes mellitus without complications, Z00.00 - Encounter for general adult medical examination without abnormal findings UA CC w/rflx Micro + Cult Today E11.9 - Type 2 diabetes mellitus without complications, Z00.00 - Encounter for general adult medical examination without abnormal findings Referrals Infectious Disease Referral W57.XXXA - Bitten or stung by nonvenomous insect and other nonvenomous arthropods, initial encounter Medications: New atorvastatin 10 mg PO BEDTIME 90 days 90 tabs 1RF lisinopril 2.5 mg PO DAILY 30 days 30 tabs 3RF empagliflozin (Jardiance) 10 mg PO DAILY 90 days 90 tabs 0RF Coding Level of Care Code Est Pt Prev Care 40-64y(61358) Diagnoses Tick bite W57.XXXA Right elbow pain M25.521 Physical exam Z00.00 Diabetes E11.9
[2022-10-01 07:37] VITALS: BP 110/72; PULSE 73; O2SAT 97; BMI 36.3
== END 2022-10-01 08:26 | disposition home or self-care (01) ==
PROVIDERS: Visit Provider Nurse Practitioner Family
DX: T63.481A Toxic effect of venom of other arthropod, accidental (unintentional), initial encounter (principal); M25.521 Pain in right elbow; Z00.00 Encounter for general adult medical examination without abnormal findings; E11.9 Type 2 diabetes mellitus without complications
CPT/HCPCS: 99396

== ENCOUNTER 2022-10-01 08:25 | Outpatient (REF) | payer OTHER, SELFPAY ==
[2022-10-01 11:15] LABS: MANUAL DIFF FLAG NO
[2022-10-01 11:27] LABS: Appearance Urine Clear; Color Urine Yellow; Glucose Urine UA Negative (Negative); Leukocyte Esterase Urine Negative (Negative); Nitrite Urine Negative (Negative); PH 5.5 (5.0-9.0); Specific Gravity - Urine 1.025 (1.005-1.025); Urine Blood Negative (Negative); Urine Ketones Trace mg/dL (Negative); Urine Protein Negative (Neg-Trace)
[2022-10-01 11:34] LABS: Basophils Absolute Auto 0.1 X10*3/uL (0.0-0.2); Basophils Percent Auto 0.6 % (0-2); Eosinophils Absolute Auto 0.3 X10*3/uL (0.0-0.4); Eosinophils Percent Auto 3.5 % (0-4); Hematocrit 45.2 % (42.0-52.0); Hemoglobin 15.1 g/dl (14.0-18.0); Imm Gran Abs Auto 0.01 X10*3/uL (0.00-0.03); Imm Gran Pct Auto 0.1 % (0.0-0.4); Lymphocytes Absolute Auto 2.3 X10*3/uL (1.2-4.9); Lymphocytes Percent Auto 28.8 % (20-40); Mean Corpuscular HGB Conc 33.4 g/dl (31.0-36.0); Mean Corpuscular Hemoglobin 29.5 pg (27.0-33.0); Mean Corpuscular Volume 88.5 fL (80.0-98.0); Mean Platelet Volume 10.6 fL (9.4-12.4); Monocytes Absolute Auto 0.6 X10*3/uL (0.1-1.2); Monocytes Percent Auto 6.9 % (2-11); Neutrophils Absolute Auto 4.8 x10*3/uL (2.0-8.3); Neutrophils Percent Auto 60.1 % (45-73); Platelet Count 282 X10*3/uL (160-400); Red Blood Count 5.11 X10*6/uL (4.60-5.80); Red Cell Distribution Width 12.2 % (11.0-16.0)
[2022-10-01 12:13] LABS: Alanine Aminotransferase 55 U/L (0-40); Albumin Level 3.9 g/dL (3.5-5.0); Alkaline Phosphatase 82 U/L (39-117); Anion Gap 12 (12-20); Aspartate Amino Transferase 15 U/L (5-37); Bilirubin Total 0.7 mg/dL (0.0-1.0); Blood Urea Nitrogen 10 mg/dL (9-16); Calcium 9.5 mg/dL (8.4-10.2); Carbon Dioxide 27 mmol/L (22-29); Chloride 103 mmol/L (96-108); Cholesterol 148 mg/dL (<200); Estimated Glomerular Filt Rate > 60; Glucose Fasting 170 mg/dL (60-99); HDL Cholesterol 32 mg/dL (>40); LDL Cholesterol Calculated 86 mg/dL (<100); Sodium 138 mmol/L (135-145); Total Protein 6.8 g/dL (6.5-8.0); Triglycerides 153 mg/dL (<150)
[2022-10-01 12:38] LABS: TSH reflex Free T4 1.18 uIU/mL (0.32-4.0)
[2022-10-02 22:13] LABS: A. Phagocytphilium DNA,RT-PCR NOT DETECTED (NOT DETECTED); Babesia Microti DNA, RT-PCR NOT DETECTED (NOT DETECTED); Borrelia Miyamotoi,DNA RT-PCR NOT DETECTED (NOT DETECTED); E.Chaffeensis DNA RT-PCR NOT DETECTED (NOT DETECTED); Lyme(Borrelia ssp)DNA RT-PCR NOT DETECTED (NOT DETECTED)
== END 2022-10-01 08:26 | disposition home or self-care (01) ==
LOC: HO.HMGCLDS 08:25
PROVIDERS: PCP Nurse Practitioner Family; Visit Provider Nurse Practitioner Family
DX: Z00.00 Encounter for general adult medical examination without abnormal findings (principal); E11.9 Type 2 diabetes mellitus without complications; T14.8XXA Other injury of unspecified body region, initial encounter; W57.XXXA Bitten or stung by nonvenomous insect and other nonvenomous arthropods, initial encounter; Y93.9 Activity, unspecified; Y92.9 Unspecified place or not applicable; Y99.9 Unspecified external cause status
CPT/HCPCS: 36415; 80053; 80061; 81003; 84443; 85025; 87798; 87801

== ENCOUNTER 2022-10-08 10:50 | Outpatient (AMB) | payer OTHER, SELFPAY ==
--- NOTE | 2022-10-08 11:22 | A.OFFVIS_ITS ---
Intake Vital Signs 10/08/22 11:30 Height 6 ft 3 in Weight 293 lb BMI 36.6 BP 120/70 Blood Pressure Location Lt brachial Position Sitting Pulse 91 Pulse Source Pulse Oximeter Pulse Oximetry (%) 99 Intake Visit Reasons: Ref.,tick bite Allergies No Known Allergies Allergy (Verified 10/01/22 07:39) HPI Ref.,tick bite HPI Details He presents for evaluation fatigue and chills and upper extremity weakness. He shows me picture of rash at time of diagnosis 06/04 and then 06/06 (pictures in chart) and took po Doxycycline 100 mg bid for 10 days. This is left arm. He now has right arm elbow pain and stiffness as well. He describes low grade fever. 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 [facility] Medical History Chills Cough Diabetes Erectile dysfunction Surgical History Hx of colonoscopy Family History Sister Mental health disorder Sister Mental health disorder Mother Mental health disorder Social History Housing: House Patient Tobacco Use Status: Former Tobacco user Quit Date: 1993 Tobacco use type: Cigarette e-Cigarette/Vaping Use: Never Used Second Hand Smoke Exposure: No service: No Current occupational status: employed Current occupation: [employer] Current occupational exposures/hazards: No Cognitive needs: No Hearing needs: No Vision needs: No Review of Systems Const All systems reviewed & are unremarkable except as noted in HPI and below Physical Exam Vital Signs: Last Vital Signs Pulse 91 10/08/22 11:30 BP 120/70 10/08/22 11:30 Pulse Ox 99 10/08/22 11:30 BMI result Body Mass Index 36.6 Const Other: General: cooperative Orientation/consciousness: patient oriented x3 HEENT Head: Yes normal to inspection Mouth: Normal oral and palatal mucosa present Eyes General: appearance normal, both eyes and all related structures Pupils: Equal, round and reactive pupils present Resp Effort & Inspection: normal respiratory effort Cardio Rate: regular rate Rhythm: regular rhythm GI Palpation (GI): Soft to palpation and nontender General: Yes no CVA tenderness Back/Spine/Pelvis Back: no CVA tenderness Skin General skin exam: no rashes or lesions noted Neuro General: patient oriented x3 Cranial nerves: Yes CN's II-XII intact bilaterally and Yes Equal, round and reactive pupils present Extrem General: Yes normal to inspection Psych Appearance: grossly normal Assessment & Plan Assessment & Plan (1) Chills: Comment: Possible recurrent Lyme disease (had already been treated for original in May). Recent Lyme and anaplasmosis and babesiosis PCRs negative. He may have Lyme IgM which would be positive for recurrent infection and will check uric acid,Lyme and HIV and Hepatitis C although no risk. Code(s): R68.83 - Chills (without fever) (2) Cough: Comment: Possible lung concerns?COPD with sweats or lung lesion Code(s): R05.9 - Cough, unspecified Plan: Check Lyme IgM. Check HIV ,hepatitis C and uric acid. He has MRI of right elbow planned he says Check CXR. Doxycycline 100 mg po bid for 21 days and will let us know next week if this has worked for elbow. Orders: Orders Blood Culture X2 Today R68.83 - Chills (without fever) Uric Acid Today R68.83 - Chills (without fever) Complete Blood Count Man Dif Today R05.9 - Cough, unspecified, R68.83 - Chills (without fever) Hepatitis B Surface Antibody Today R68.83 - Chills (without fever) Hepatitis B Surface Antigen Today R68.83 - Chills (without fever) Hepatitis C Antibody Today R68.83 - Chills (without fever) HIV Ab/Ag Today R68.83 - Chills (without fever) Lyme IgG/IgM w/reflex to WB Today R68.83 - Chills (without fever) XR chest 2V Today R05.9 - Cough, unspecified Medications: New doxycycline hyclate 100 mg PO BID 42 tabs 1RF 21 days Coding Level of Care Code Est Pt Level 3 (80738) Diagnoses Chills R68.83 Cough R05.9
[2022-10-08 11:30] VITALS: BP 120/70; PULSE 91; O2SAT 99; BMI 36.6
== END 2022-10-08 12:10 | disposition home or self-care (01) ==
LOC: HO.HID 10:51
PROVIDERS: PCP Nurse Practitioner Family; Visit Provider Internal Medicine
DX: R68.83 Chills (without fever) (principal); R05.9 Cough, unspecified
CPT/HCPCS: 99213

== ENCOUNTER 2022-10-08 10:50 | Outpatient (REF) | payer OTHER, SELFPAY ==
--- NOTE | ~2022-10-08 | XR_ITS ---
EXAMINATION: XR CHEST CLINICAL INFORMATION: Cough COMPARISON: None available. TECHNIQUE: 2 views of the chest were obtained. FINDINGS: Elevation the right hemidiaphragm. No pneumothorax. Trachea is midline. Cardiac mediastinal silhouette is not enlarged. No large pleural effusion. Degenerative changes of the thoracolumbar spine. Soft tissues are unremarkable. XR/XR chest 2V IMPRESSION: No acute cardiopulmonary process.
[2022-10-08 12:52] LABS: Baso%MD 0.7 %; Eos%MD 3.1 %; Hematocrit 48.1 % (42.0-52.0); Hemoglobin 16.3 g/dl (14.0-18.0); IG%MD 0.2 %; Lymph%MD 26.3 %; Mean Corpuscular HGB Conc 33.9 g/dl (31.0-36.0); Mean Corpuscular Hemoglobin 29.2 pg (27.0-33.0); Mean Corpuscular Volume 86.2 fL (80.0-98.0); Mean Platelet Volume 9.9 fL (9.4-12.4); Neut%MD 62.7 %; Platelet Count 281 X10*3/uL (160-400); Red Blood Count 5.58 X10*6/uL (4.60-5.80); Red Cell Distribution Width 12.1 % (11.0-16.0); White Blood Count 8.8 X10*3/uL (4.8-10.8)
[2022-10-08 13:06] LABS: Uric Acid 6.2 mg/dL (3.4-7.0)
[2022-10-08 15:30] LABS: Atypical Lymph Absolute Manual 0.4 x10*3/uL; Atypical Lymphs Percent Manual 4 % (0-6); Eosinophils Absolute Manual 0.3 X10*3/uL (0.0-0.4); Eosinophils Percent Manual 3 % (0-4); Lymphocytes Absolute Manual 2.4 X10*3/uL (1.2-4.9); Lymphocytes Percent Manual 27 % (20-40); Monocytes Absolute Manual 0.3 X10*3/uL (0.1-1.2); Monocytes Percent Manual 3 % (2-11); Neutrophils Percent Manual 63 % (45-73)
[2022-10-08 15:33] LABS: Platelet Estimate NORMAL (NORMAL); Platelet Morphology Comment NORMAL; RBC Morphology NORMAL
[2022-10-09 08:20] LABS: HBsAGNum1 0.41 S/CO (0.00-0.99); HIV Num 1 5.85 S/CO (0.00-0.99); Hepatitis B Surface Antigen Negative (Negative); ~HepC Num1 0.11 S/CO (0.00-0.79); ~Hepatitis B Surface Antibody NONREACTIVE (Nonreactive); ~Hepatitis C Antibody Nonreactive (Nonreactive)
[2022-10-09 09:29] LABS: HIV AB/AG Nonreactive (Nonreactive); HIV Num 2 0.07 S/CO; HIV Num 3 0.07 S/CO
[2022-10-09 21:23] LABS: Lyme Abs Screen <0.90 index
== END 2022-10-08 10:51 | disposition home or self-care (01) ==
LOC: HO.LAB 10:50
PROVIDERS: PCP Nurse Practitioner Family; Visit Provider Internal Medicine
DX: Z11.4 Encounter for screening for human immunodeficiency virus [HIV] (principal); R05.9 Cough, unspecified; R68.83 Chills (without fever)
CPT/HCPCS: 36415; 71046; 84550; 85007; 85027; 86617; 86618; 86706; 86803; 87040; 87340; 87389

== ENCOUNTER 2022-10-10 12:50 | Outpatient (AMB) | payer OTHER, SELFPAY ==
[2022-10-10 13:06] VITALS: BMI 36.6
--- NOTE | 2022-10-10 13:06 | A.OFFVIS_ITS ---
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 Hx of DM & Lymes disease since September. States he has lost strength in his right arm since he was diagnose, feels very fatigue, get dizziness often, and has joint pain. At times he has numbness in hands. 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 He states he has pain in his right elbow and occasional numbness in his hands which is aggravated with lifting and twisting motions. He has a diabetes and Lymes disease since September. His sugar level is currently uncontrolled. He also c/o weakness in the right arm, joint pain, fatigue and dizziness since his diagnosis. [facility] Medical History Chills Cough Diabetes Erectile dysfunction Surgical History Hx of colonoscopy Family History Sister Mental health disorder Sister Mental health disorder Mother Mental health disorder Social History (Updated 10/10/22 @ 13:13 by Erika Collado [facility]) Housing: House Patient Tobacco Use Status: Former Tobacco user Quit Date: 1993 Tobacco use type: Cigarette e-Cigarette/Vaping Use: Never Used Second Hand Smoke Exposure: No service: No Current occupational status: employed 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 Current occupational exposures/hazards: No Cognitive needs: No Hearing needs: No Vision needs: No Review of Systems Const All systems reviewed & are unremarkable except as noted in HPI and below Physical Exam Vital Signs: BMI result Body Mass Index 36.6 Const General: cooperative, healthy appearing, comfortable, no acute distress, well developed and alert Orientation/consciousness: patient oriented x3 HEENT Head: Yes normal to inspection, Yes normocephalic and Yes atraumatic Eyes General: appearance normal, both eyes and all related structures Resp Effort & Inspection: normal respiratory effort and able to speak in complete sentences Cardio Rate: regular rate Peripheral pulses: Peripheral pulses 2+ throughout GI Palpation (GI): Soft to palpation Skin Lesions: no lesions Rashes: no rashes Neuro General: patient oriented x3 Extrem Other: Right elbow: Skin intact. No erythema or swelling. ROM full without pain. Tenderness over the lateral epicondyle and pain with resisted wrist extension. NVI. Assessment & Plan Assessment & Plan (1) Lateral epicondylitis, right elbow: Code(s): M77.11 - Lateral epicondylitis, right elbow Plan We discussed options which include OT, NSAIDs and injections. The patient will defer on the injection today and proceed with OT and NSAIDs. If symptoms persist, the patient will contact me for an injection, otherwise, PRN. Orders: Orders OT Evaluation and Treatment Today M77.11 - Lateral epicondylitis, right elbow Patient Instructions: Scribed for Naren Polanco PA-C, by Aki Yang medical laboratory manager, on 10/10/2022 at 1:00 PM EST. I, Naren Polanco PA-C, have personally reviewed and agree with t he information entered by the scribe. Coding Level of Care Code New Pt Level 3 (19602) Diagnoses Lateral epicondylitis, right elbow M77.11
== END 2022-10-10 13:24 | disposition home or self-care (01) ==
PROVIDERS: PCP Nurse Practitioner Family; Visit Provider Physician Assistant
DX: M77.11 Lateral epicondylitis, right elbow (principal)
CPT/HCPCS: 99203

== ENCOUNTER → 2022-10-10 12:50 | Outpatient (BNVA) | payer OTHER, SELFPAY | PROVIDERS: PCP Nurse Practitioner Family; Visit Provider Physician Assistant ==

== ENCOUNTER 2022-12-01 09:00 | Outpatient (RCR) | payer OTHER, SELFPAY ==
--- NOTE | 2022-12-01 09:52 | MHC.OT.DC ---
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 Pain 2/10 , avoiding heavy use. 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
== END 2022-12-01 09:53 | disposition home or self-care (01) ==
LOC: HO.OT 09:00
PROVIDERS: PCP Nurse Practitioner Family; Visit Provider Physician Assistant
DX: M77.11 Lateral epicondylitis, right elbow (principal)
CPT/HCPCS: 97033; 97110; 97140; 97166

== ENCOUNTER 2023-01-06 08:29 | Outpatient (AMB) | payer OTHER, SELFPAY ==
--- NOTE | 2023-01-06 08:32 | MHC.PC.OV ---
Vital Signs 01/06/23 08:34 Height 6 ft 3 in Weight 286 lb BMI 35.7 BP 116/74 Blood Pressure Location Rt brachial Position Sitting Pulse 67 Pulse Source Pulse Oximeter Pulse Oximetry (%) 97 Oxygen Delivery Method Room Air Intake Visit Reasons: diabetes 3 month fu Intake Note: Patient here for 3 month diabetes follow up. pt states sugars rage around 170, has been having his sugar drop down to about 60 usually at night. Needs refills on all meds. Allergies No Known Allergies Allergy (Verified 01/06/23 08:35) Medication List - Last Reconciled 01/06/23 by VINAY Carpenter-GISEL alprazolam 0.5 mg PO DAILY PRN 30 days atorvastatin 10 mg PO BEDTIME atorvastatin 10 mg PO BEDTIME betamethasone dipropionate 0.05% 1 appl topical DAILY PRN empagliflozin 10 mg PO QAM FreeStyle Faizan 2 [place] (flash glucose scanning reader) tid testing NS FreeStyle Faizan 2 Sensor (flash glucose sensor) tid testing NS ibuprofen (Advil) 400 mg PO Q8H PRN lisinopril 2.5 mg PO DAILY NS lisinopril 2.5 mg PO DAILY metformin 1,000 mg PO BID 90 days sildenafil 50 mg PO DAILY PRN 12 days Tobacco use date assessed: 10/01/22 HPI diabetes 3 month fu HPI Details Pt is a diabetic, on an JEANINE and a statin. A1C in office today is 6.9. Microalbumin is up to date. Denies polyuria, polydipsia, and neuropathy. Pt denies any signs and symptoms of hypoglycemia and does know how to correct it. Pt has been off his jardiance for a week because he ran out, will send. Pt is working on his diet and losing weight. 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 Emmanuel Harrison, Tonya Sargent, Brett Wadsworth and colleagues, with an educational chicho from [employer]. Review of Systems Const Reports as per HPI Physical exam (Primary Care) Vital Signs: Last Vital Signs Pulse 67 01/06/23 08:34 BP 116/74 01/06/23 08:34 Pulse Ox 97 01/06/23 08:34 Oxygen Delivery Method Room Air 01/06/23 08:34 BMI result Body Mass Index 35.7 Tobacco/Smoking Status: Tobacco use Status Tobacco use date assessed 10/01/22 01/06/23 08:40 Patient Tobacco Use Status Former Tobacco user 01/06/23 08:40 Tobacco use type Cigarette 01/06/23 08:40 e-Cigarette/Vaping Use Never Used 01/06/23 08:40 Thrive Assessment: Date of Thrive Assessment Date Thrive assessed 09/30/21 01/06/23 08:40 Const General: cooperative Nutritional Appearance: obese Orientation/consciousness: patient oriented x3 Resp Effort & Inspection: normal respiratory effort Auscultation: clear to auscultation bilaterally Cardio Rate: regular rate Rhythm: regular rhythm Heart sounds: S1 normal heart sound present, S2 normal heart sound present and no murmurs Neuro General: patient oriented x3 Extrem Other: bilat feet: + sensation with use of monofilament Psych Appearance: grossly normal Mental Status: mental status grossly normal Speech and movement: Normal speech and movement present Affect: normal affect Attitude: cooperative Thought process: Normal thought process present Thought content: Normal thought content present Insight: Good insight present (Psych) Judgement: Good judgement present (Psych) Results AMB Hemoglobin A1c AMB Hemoglobin A1c 6.9 % Last Edit by HUNG Merritt on 01/06/23 08:51 Results Reviewed Results Reviewed: Laboratory Last Values Hgb A1c (Clinic) 6.9 % (4.0-6.0) H 01/06/23 08:50 Assessment and Plan Assessment & Plan (1) Diabetes: Code(s): E11.9 - Type 2 diabetes mellitus without complications Plan: Labs ordered Plan The patient agreed to the use of a medical receptionist medical assistant for this encounter. Scribed for VINAY Ellison- by Dee Dave medical receptionist medical assistant, on 01/06/2023 at 08:50 EST. Orders: Orders Complete Blood Count Auto Diff Today E11.9 - Type 2 diabetes mellitus without complications Lipid Panel Today E11.9 - Type 2 diabetes mellitus without complications AMB Hemoglobin A1c Today Z13.9 - Encounter for screening, unspecified Comprehensive [place]. Panel Fast Today E11.9 - Type 2 diabetes mellitus without complications TSH reflex Free T4 Today E11.9 - Type 2 diabetes mellitus without complications UA CC w/rflx Micro + Cult Today E11.9 - Type 2 diabetes mellitus without complications Medications: New empagliflozin 10 mg PO QAM 90 tabs 0RF lisinopril 2.5 mg PO DAILY 90 tabs 0RF NS atorvastatin 10 mg PO BEDTIME 90 tabs 0RF Refilled metformin 1,000 mg PO BID 180 tabs 1RF 90 days Coding Level of Care Code Est Pt Level 3 (69511) Diagnoses Diabetes E11.9
[2023-01-06 08:34] VITALS: BP 116/74; PULSE 67; O2SAT 97; BMI 35.7
== END 2023-01-06 09:18 | disposition home or self-care (01) ==
PROVIDERS: PCP Nurse Practitioner Family; Visit Provider Nurse Practitioner Family
DX: E11.9 Type 2 diabetes mellitus without complications (principal)
CPT/HCPCS: 83036; 99213

== ENCOUNTER 2023-01-06 09:22 | Outpatient (REF) | payer OTHER, SELFPAY ==
[2023-01-06 11:11] LABS: MANUAL DIFF FLAG NO
[2023-01-06 11:15] LABS: Appearance Urine Clear; Color Urine Yellow; Glucose Urine UA >=1000 mg/dL (Negative); Leukocyte Esterase Urine Negative (Negative); Nitrite Urine Negative (Negative); PH 5.5 (5.0-9.0); Specific Gravity - Urine >= 1.030 (1.005-1.025); UMIC TRIGGER UACC YES; Urine Blood Negative (Negative); Urine Ketones Negative (Negative); Urine Protein Negative (Neg-Trace)
[2023-01-06 11:21] LABS: Basophils Percent Auto 0.5 % (0-2); Eosinophils Absolute Auto 0.3 X10*3/uL (0.0-0.4); Eosinophils Percent Auto 3.6 % (0-4); Hematocrit 50.3 % (42.0-52.0); Hemoglobin 16.3 g/dl (14.0-18.0); Imm Gran Abs Auto 0.02 X10*3/uL (0.00-0.03); Imm Gran Pct Auto 0.2 % (0.0-0.4); Lymphocytes Absolute Auto 2.2 X10*3/uL (1.2-4.9); Lymphocytes Percent Auto 26.1 % (20-40); Mean Corpuscular HGB Conc 32.4 g/dl (31.0-36.0); Mean Corpuscular Hemoglobin 29.1 pg (27.0-33.0); Mean Corpuscular Volume 89.7 fL (80.0-98.0); Mean Platelet Volume 10.7 fL (9.4-12.4); Monocytes Absolute Auto 0.5 X10*3/uL (0.1-1.2); Monocytes Percent Auto 6.1 % (2-11); Neutrophils Absolute Auto 5.5 x10*3/uL (2.0-8.3); Neutrophils Percent Auto 63.5 % (45-73); Platelet Count 273 X10*3/uL (160-400); Red Blood Count 5.61 X10*6/uL (4.60-5.80); Red Cell Distribution Width 12.5 % (11.0-16.0); White Blood Count 8.6 X10*3/uL (4.8-10.8)
[2023-01-06 11:24] LABS: Bacteria Urine None Seen (None Seen); Hyaline Casts Urine 0-2 /LPF (0-2); RBC Urine 0-2 /HPF (0-2); Squamous Epithelial Cell Urine 0-2 /HPF (0-2); WBC Urine 0-5 /HPF (0-5)
[2023-01-06 12:20] LABS: Alanine Aminotransferase 36 U/L (0-40); Albumin Level 4.2 g/dL (3.5-5.0); Alkaline Phosphatase 96 U/L (39-117); Anion Gap 10 (12-20); Aspartate Amino Transferase 12 U/L (5-37); Bilirubin Total 0.6 mg/dL (0.0-1.0); Blood Urea Nitrogen 14 mg/dL (9-16); Calcium 9.2 mg/dL (8.4-10.2); Carbon Dioxide 28 mmol/L (22-29); Chloride 105 mmol/L (96-108); Cholesterol 149 mg/dL (<200); Estimated Glomerular Filt Rate > 60; Glucose Fasting 173 mg/dL (60-99); HDL Cholesterol 35 mg/dL (>40); LDL Cholesterol Calculated 96 mg/dL (<100); Potassium 4.4 mmol/L (3.3-5.1); Sodium 139 mmol/L (135-145); TSH reflex Free T4 1.11 uIU/mL (0.32-4.0); Total Protein 7.3 g/dL (6.5-8.0); Triglycerides 91 mg/dL (<150)
== END 2023-01-06 09:23 | disposition home or self-care (01) ==
LOC: HO.HMGCLDS 09:22
PROVIDERS: PCP Nurse Practitioner Family; Visit Provider Nurse Practitioner Family
DX: E11.9 Type 2 diabetes mellitus without complications (principal)
CPT/HCPCS: 36415; 80053; 80061; 81001; 84443; 85025

== ENCOUNTER 2023-04-16 14:54 | Outpatient (AMB) | payer OTHER, SELFPAY ==
[2023-04-16 14:58] VITALS: BP 122/74; PULSE 78; O2SAT 99; BMI 36.9
--- NOTE | 2023-04-16 14:58 | A.OFFPC_ITS ---
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 Accompanied by: Self / Same As Patient Allergies No Known Allergies Allergy (Verified 04/16/23 17:36) Medication List - Last Reconciled 04/16/23 by AARON Carpenter alprazolam 0.5 mg PO DAILY PRN 30 days atorvastatin 10 mg PO BEDTIME betamethasone dipropionate 0.05% 1 appl topical DAILY PRN blood-glucose sensor (PenanaStyle Faizan 3 Sensor device) Test blood sugar 4 times per day empagliflozin 10 mg PO QAM ibuprofen (Advil) 400 mg PO Q8H PRN lisinopril 2.5 mg PO DAILY NS metformin 1,000 mg PO BID 90 days sildenafil 50 mg PO DAILY PRN 12 days Tobacco use date assessed: 04/16/23 Dental Screening Dental Screen Date: 04/16/23 Did you have a dental visit in the last 12 months?: Yes Did you have a dental problem in the last 6 months where you did not have access to dental care?: No Was dental information given to patient?: Patient has dentist HPI 3 Month F/U HPI Details Pt is a diabetic, on an JEANINE and a statin. A1C in office today is 8.2. Microalbumin is up to date. Denies polyuria, polydipsia, and neuropathy. Pt denies any signs and symptoms of hypoglycemia and does know how to correct it. Pt reports that his blood sugar has been uncontrolled. He states that his diet has been poor and he has been off jardiance for 2 weeks. Will refill jardiance. Pt will work on his diet. Pt will schedule his own eye exam. Pt c/o leg cramping. ? if this is related to statin. Recommended magnesium oxide at night and sugar free electrolyte drinks. If this does not work, will have pt stop statin. 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 1. Little interest or pleasure in doing things: not at all 2. Feeling down, depressed, or hopeless: not at all 3. Trouble falling or staying asleep, or sleeping too much: nearly every day 4. Feeling tired or having little energy: not at all 5. Poor appetite or overeating: nearly every day 6. Feeling bad about yourself - or that you are a failure or have let yourself or your family down: not at all 7. Trouble concentrating on things, such as reading the newspaper or watching television: not at all 8. Moving or speaking so slowly that other people could have noticed. Or the opposite - being so fidgety or restless that you have been moving around a lot more than usual: not at all 9. Thoughts that you would be better off or of hurting yourself in some way: not at all Total score: 6 Depression Screening Interpretation: Negative Depression Screening Done: Yes [id number] - PHQ-9 Billing: Yes Source: Developed by Drs. Emmanuel Harrison, Tonya Sargent, Brett Wadsworth and colleagues, with an educational chicho from [employer]. Thrive Questionnaire Date Thrive assessed: 04/16/23 I am a: Patient What is your living situation today?: I have a steady place to live Within the past 12 months, did the food you bought not last and you didn't have the money to get more?: Never true Within the past 12 months, did you worry whether your food would run out before you got money to buy more?: Never true Do you have trouble paying for medicines?: No Do you have trouble getting transportation to medical appointments?: No Do you have trouble paying your heating and electricity bill?: No Do you have trouble taking care of your child, family member or friend?: No Do you have trouble with day-to-day activities such as bathing, preparing meals, shopping, managing finances, etc.?: No Are you currently unemployed and looking for a job?: No Are you interested in more education?: No Please select the resources that you would like help with: None Currently or been in a relationship where the following occur: no concerns reported THRIVE Score: 0 AUDIT C Alcohol Use Questionnaire (AUDIT-C) 1. How often do you have a drink containing alcohol?: Monthly or less 2. How many drinks containing alcohol do you have on a typical day when you are drinking?: 1 or 2 3. How often do you have six or more drinks on one occasion?: Never Total Score: 1 Score Reviewed/Action Taken: Yes LEONEL-7 AMB Questionnaire LEONEL-7 Date LEONEL - 7 assessed: 04/16/23 Feeling nervous, anxious, or on edge: 1 = Several days Not being able to stop or control worryin = Not at all Worrying too much about different things: 1 = Several days Trouble relaxin = Not at all Being so restless that it is hard to sit still: 0 = Not at all Becoming easily annoyed or irritable: 1 = Several days Feeling afraid as if something awful might happen: 0 = Not at all Total LEONEL-7 score (0-4 normal; 5-9 mild; 10-14 moderate; 15-21 severe): 3 Source: Developed by Drs. Emmanuel Harrison, Tonya Sargent, Brett Wadsworth and colleagues, with an educational chicho from [employer]. LEONEL-7 Assessment Billing LEONEL-7 Assessment Tool: LEONEL-7 Assessment 61280 Review of Systems Const Reports as per HPI Physical exam (Primary Care) Vital Signs: Last Vital Signs Pulse 78 04/16/23 14:58 BP 122/74 04/16/23 14:58 Pulse Ox 99 04/16/23 14:58 Oxygen Delivery Method Room Air 04/16/23 14:58 BMI result Body Mass Index 36.9 Tobacco/Smoking Status: Tobacco use Status Tobacco use date assessed 04/16/23 04/16/23 15:04 Patient Tobacco Use Status Former Tobacco user 04/16/23 15:04 Tobacco use type Cigarette 04/16/23 15:04 e-Cigarette/Vaping Use Never Used 04/16/23 15:04 PHQ-9: PHQ-9 Score PHQ-9: Total score 6 04/16/23 15:39 Depression Screening Interpretation: Negative Thrive Assessment: Date of Thrive Assessment Date Thrive assessed 04/16/23 04/16/23 15:04 Currently or been in a relationship where the following occur: no concerns reported Const General: cooperative Nutritional Appearance: obese Orientation/consciousness: patient oriented x3 Resp Effort & Inspection: normal respiratory effort Auscultation: clear to auscultation bilaterally Cardio Rate: regular rate Rhythm: regular rhythm Heart sounds: S1 normal heart sound present and S2 normal heart sound present Neuro General: patient oriented x3 Extrem Other: bilat feet: + sensation with use of monofilament, feet intact Psych Appearance: grossly normal Mental Status: mental status grossly normal Speech and movement: Normal speech and movement present Affect: normal affect Attitude: cooperative Thought process: Normal thought process present Thought content: Normal thought content present Insight: Good insight present (Psych) Judgement: Good judgement present (Psych) Assessment and Plan Assessment & Plan (1) Diabetes: Code(s): E11.9 - Type 2 diabetes mellitus without complications Plan: Labs ordered (2) Leg cramps: Code(s): R25.2 - Cramp and spasm Plan: push fluids, sugar free gatorade, mag oxide, check CPK. Plan The patient agreed to the use of a medical care manager for this encounter. Scribed for AARON Ellison by Dee Dave medical care manager, on 04/16/2023 at 15:15 EST. Orders: Orders Complete Blood Count Auto Diff Today E11.9 - Type 2 diabetes mellitus without complications UA CC w/rflx Micro + Cult Today E11.9 - Type 2 diabetes mellitus without complications AMB Hemoglobin A1c Today Z13.9 - Encounter for screening, unspecified Comprehensive [place]. Panel Fast Today E11.9 - Type 2 diabetes mellitus without complications TSH reflex Free T4 Today E11.9 - Type 2 diabetes mellitus without complications Lipid Panel Today E11.9 - Type 2 diabetes mellitus without complications Creatine Kinase Total Today R25.2 - Cramp and spasm Medications: Refilled empagliflozin 10 mg PO QAM 90 tabs 1RF empagliflozin 10 mg PO QAM 90 tabs 1RF Coding Level of Care Code Est Pt Level 3 (38339) Diagnoses Diabetes E11.9 Leg cramps R25.2 Additional Codes LEONEL-7 Assessment Billing - LEONEL-7 Assessment Tool: LEONEL-7 Assessment 33288 ([id number])
== END 2023-04-16 15:55 | disposition home or self-care (01) ==
PROVIDERS: PCP Nurse Practitioner Family; Visit Provider Nurse Practitioner Family
DX: E11.9 Type 2 diabetes mellitus without complications (principal); R25.2 Cramp and spasm
CPT/HCPCS: 99213

== ENCOUNTER 2023-04-17 08:42 | Outpatient (REF) | payer OTHER, SELFPAY ==
[2023-04-17 11:23] LABS: Appearance Urine Clear; Color Urine Yellow; Glucose Urine UA Negative (Negative); Leukocyte Esterase Urine Negative (Negative); Nitrite Urine Negative (Negative); Specific Gravity - Urine 1.015 (1.005-1.025); Urine Blood Negative (Negative); Urine Ketones Negative (Negative); Urine Protein Negative (Neg-Trace)
[2023-04-17 11:24] LABS: MANUAL DIFF FLAG NO
[2023-04-17 11:32] LABS: Basophils Absolute Auto 0.1 X10*3/uL (0.0-0.2); Basophils Percent Auto 0.6 % (0-2); Eosinophils Absolute Auto 0.3 X10*3/uL (0.0-0.4); Eosinophils Percent Auto 3.9 % (0-4); Hematocrit 47.9 % (42.0-52.0); Hemoglobin 15.7 g/dl (14.0-18.0); Imm Gran Abs Auto 0.03 X10*3/uL (0.00-0.03); Imm Gran Pct Auto 0.3 % (0.0-0.4); Lymphocytes Absolute Auto 2.5 X10*3/uL (1.2-4.9); Lymphocytes Percent Auto 29.3 % (20-40); Mean Corpuscular HGB Conc 32.8 g/dl (31.0-36.0); Mean Corpuscular Hemoglobin 28.9 pg (27.0-33.0); Mean Corpuscular Volume 88.1 fL (80.0-98.0); Mean Platelet Volume 10.7 fL (9.4-12.4); Monocytes Absolute Auto 0.6 X10*3/uL (0.1-1.2); Monocytes Percent Auto 6.8 % (2-11); Neutrophils Absolute Auto 5.1 x10*3/uL (2.0-8.3); Neutrophils Percent Auto 59.1 % (45-73); Platelet Count 257 X10*3/uL (160-400); Red Blood Count 5.44 X10*6/uL (4.60-5.80); Red Cell Distribution Width 12.7 % (11.0-16.0); White Blood Count 8.7 X10*3/uL (4.8-10.8)
[2023-04-17 12:03] LABS: Alanine Aminotransferase 35 U/L (0-40); Albumin Level 3.8 g/dL (3.5-5.0); Alkaline Phosphatase 99 U/L (39-117); Anion Gap 11 (12-20); Aspartate Amino Transferase 12 U/L (5-37); Bilirubin Total 0.7 mg/dL (0.0-1.0); Blood Urea Nitrogen 11 mg/dL (9-16); Carbon Dioxide 29 mmol/L (22-29); Chloride 103 mmol/L (96-108); Cholesterol 148 mg/dL (<200); Estimated Glomerular Filt Rate > 60; Glucose Fasting 229 mg/dL (60-99); HDL Cholesterol 36 mg/dL (>40); LDL Cholesterol Calculated 92 mg/dL (<100); Potassium 4.1 mmol/L (3.3-5.1); Sodium 139 mmol/L (135-145); Total Protein 6.6 g/dL (6.5-8.0); Triglycerides 100 mg/dL (<150)
== END 2023-04-17 08:43 | disposition home or self-care (01) ==
LOC: HO.HMGCLDS 08:42
PROVIDERS: PCP Nurse Practitioner Family; Visit Provider Nurse Practitioner Family
DX: E11.9 Type 2 diabetes mellitus without complications (principal); R25.2 Cramp and spasm
CPT/HCPCS: 36415; 80053; 80061; 81003; 82550; 84443; 85025

== ENCOUNTER 2023-05-25 15:02 | Outpatient (AMB) | payer OTHER, SELFPAY ==
[2023-05-25 15:03] VITALS: BP 122/70; PULSE 80; TEMP 36.8; O2SAT 99; BMI 36.9
--- NOTE | 2023-05-25 15:03 | AM.OFFWIN_ITS ---
Intake Vital Signs 05/25/23 15:03 Height 6 ft 3 in Weight 295 lb BMI 36.9 BP 122/70 Blood Pressure Location Lt brachial Position Sitting Pulse 80 Pulse Source Pulse Oximeter Temp 98.2 F Temp Source Oral Pulse Oximetry (%) 99 Oxygen Delivery Method Room Air Intake Visit Reasons: EP sinus infection (lobby) Intake Note: pt is here for c/o sinus infection Patient Tobacco Use Status: Former Tobacco user Quit Date: 1993 Allergies No Known Allergies Allergy (Verified 05/25/23 15:04) Do you need a note to return to daycare/school/sports/work: No HPI HPI Comments History of Present Illness Details 52 y/o male patient who [facility] with c/o sinus pressur e and congestion since Thursday. Denies any recent sick contact. Denies fevers, chills, nausea or vomiting. 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 Current occupational exposures/hazards: No Cognitive needs: No Hearing needs: No Vision needs: No Review of Systems Const All systems reviewed & are unremarkable except as noted in HPI and below Physical Exam Vital Signs: Last Vital Signs Temp 98.2 F 05/25/23 15:03 Pulse 80 05/25/23 15:03 BP 122/70 05/25/23 15:03 Pulse Ox 99 05/25/23 15:03 Oxygen Delivery Method Room Air 05/25/23 15:03 BMI result Body Mass Index 36.9 Const General: comfortable and no acute distress Nutritional Appearance: obese Orientation/consciousness: patient oriented x3 HEENT Head: Yes normocephalic Ears: external ears normal and TM's normal bilaterally General nose exam: Abnormal mucous membranes and turbinates present erythematous Face and sinus: Yes sinus tenderness Mouth: moist mucous membranes Throat: Yes posterior oropharynx normal, Yes tonsils normal and Yes uvula midline Resp Effort & Inspection: normal respiratory effort and able to speak in complete sentences Auscultation: clear to auscultation bilaterally, no crackles, no rales, no rhonchi and no wheezes Cardio Rate: regular rate Rhythm: regular rhythm Neuro General: patient oriented x3, gait normal and moves all extremities Psych Speech and movement: Normal speech and movement present Assessment & Plan Assessment & Plan (1) Acute rhinosinusitis: Code(s): J01.90 - Acute sinusitis, unspecified Plan: - OTC cold/sinus relief remedies - Take medicines as directed. Medications: New oxymetazoline 0.05% (Afrin (oxymetazoline)) 2 sprays intranasal Q12H 3 days PRN 22 mL 0RF nasal congestion J01.90 - Acute sinusitis, unspecified pseudoephedrine HCl ER (Sudafed 12 Hour) 120 mg PO Q12H PRN 30 tabs 0RF nasal congestion J01.90 - Acute sinusitis, unspecified Coding Level of Care Code Est Pt Level 3 (65324) Diagnoses Acute rhinosinusitis J01.90 Time Spent (min) 15
== END 2023-05-25 15:30 | disposition home or self-care (01) ==
PROVIDERS: PCP Nurse Practitioner Family; Visit Provider Nurse Practitioner Family
DX: J01.90 Acute sinusitis, unspecified (principal)
CPT/HCPCS: 99213

== ENCOUNTER 2023-08-18 09:56 | Outpatient (AMB) | payer OTHER, SELFPAY ==
--- NOTE | 2023-08-18 10:00 | MHC.PC.OV ---
Vital Signs 08/18/23 10:07 Height 6 ft 3 in Weight 279 lb BMI 34.9 BP 126/82 Blood Pressure Location Rt brachial Position Sitting Pulse 76 Pulse Source Pulse Oximeter Pulse Oximetry (%) 98 Oxygen Delivery Method Room Air Intake Visit Reasons: F/U DM Intake Note: Patient here for DM f/u. Allergies No Known Allergies Allergy (Verified 08/18/23 10:22) Medication List - Last Reconciled 08/18/23 by AARON Carpenter alprazolam 0.5 mg PO DAILY PRN 30 days atorvastatin 10 mg PO BEDTIME betamethasone dipropionate 0.05% 1 appl topical DAILY PRN blood-glucose sensor ([employer] Faizan 3 Sensor device) Test blood sugar 4 times per day empagliflozin 10 mg PO QAM ibuprofen (Advil) 400 mg PO Q8H PRN lisinopril 2.5 mg PO DAILY NS metformin 1,000 mg PO BID 90 days oxymetazoline 0.05% (Afrin (oxymetazoline)) 2 sprays intranasal Q12H PRN 3 days pseudoephedrine HCl ER (Sudafed 12 Hour) 120 mg PO Q12H PRN sildenafil 50 mg PO DAILY PRN 12 days Tobacco use date assessed: 04/16/23 Dental Screening Dental Screen Date: 04/16/23 HPI F/U DM HPI Details Pt is a diabetic, on an JEANINE and a statin. A1C in office today is 7.5. Due for microalbumin, will order. Denies polyuria, polydipsia, and neuropathy. Pt denies any signs and symptoms of hypoglycemia and does know how to correct it. Will increase jardiance from 10mg to 25mg. Pt is interested in a vasectomy. Will refer to urology. 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 Emmanuel Harrison, Tonya Sargent, Brett Wadsworth and colleagues, with an educational chicho from [employer]. Review of Systems Const Reports as per HPI Physical exam (Primary Care) Vital Signs: Last Vital Signs Pulse 76 08/18/23 10:07 BP 126/82 08/18/23 10:07 Pulse Ox 98 08/18/23 10:07 Oxygen Delivery Method Room Air 08/18/23 10:07 BMI result Body Mass Index 34.9 Tobacco/Smoking Status: Tobacco use Status Tobacco use date assessed 04/16/23 08/18/23 10:02 Patient Tobacco Use Status Former Tobacco user 08/18/23 10:02 Tobacco use type Cigarette 08/18/23 10:02 e-Cigarette/Vaping Use Never Used 08/18/23 10:02 Thrive Assessment: Date of Thrive Assessment Date Thrive assessed 04/16/23 08/18/23 10:02 Const General: cooperative Nutritional Appearance: obese Orientation/consciousness: patient oriented x3 Neuro General: patient oriented x3 Psych Appearance: grossly normal Mental Status: mental status grossly normal Speech and movement: Normal speech and movement present Affect: normal affect Attitude: cooperative Thought process: Normal thought process present Thought content: Normal thought content present Insight: Good insight present (Psych) Judgement: Good judgement present (Psych) Results AMB Hemoglobin A1c AMB Hemoglobin A1c 7.5 % Last Edit by HUNG Merritt on 08/18/23 10:27 Results Reviewed Results Reviewed: Laboratory Last Values Hgb A1c (Clinic) 7.5 % (4.0-6.0) H 08/18/23 10:26 Assessment and Plan Assessment & Plan (1) Diabetes: Code(s): E11.9 - Type 2 diabetes mellitus without complications Plan: Labs ordered (2) Vasectomy evaluation: Code(s): Z30.09 - Encounter for other general counseling and advice on contraception Plan The patient agreed to the use of a bilingual medical assistant for this encounter. Scribed for AARON Ellison by Dee Dave bilingual medical assistant, on 08/18/2023 at 10:20 EST. Orders: Orders Complete Blood Count Auto Diff Today E11.9 - Type 2 diabetes mellitus without complications Comprehensive [place]. Panel Fast Today E11.9 - Type 2 diabetes mellitus without complications UA CC w/rflx Micro + Cult Today E11.9 - Type 2 diabetes mellitus without complications AMB Hemoglobin A1c Today Z13.9 - Encounter for screening, unspecified TSH reflex Free T4 Today E11.9 - Type 2 diabetes mellitus without complications Lipid Panel Today E11.9 - Type 2 diabetes mellitus without complications Microalbumin, Random (w Creat) Today E11.9 - Type 2 diabetes mellitus without complications Referrals Urology Referral Z30.09 - Encounter for other general counseling and advice on contraception Medications: Changed From empagliflozin 10 mg PO QAM 90 tabs 1RF To empagliflozin 25 mg PO QAM 90 tabs 1RF Coding Level of Care Code Est Pt Level 3 (59050) Complex EM visit Add On G2211 Diagnoses Diabetes E11.9 Vasectomy evaluation Z30.09
[2023-08-18 10:07] VITALS: BP 126/82; PULSE 76; O2SAT 98; BMI 34.9
== END 2023-08-18 10:54 | disposition home or self-care (01) ==
PROVIDERS: PCP Nurse Practitioner Family; Visit Provider Nurse Practitioner Family
DX: E11.9 Type 2 diabetes mellitus without complications (principal); Z30.09 Encounter for other general counseling and advice on contraception
CPT/HCPCS: 83036; 99213

== ENCOUNTER 2023-09-11 08:17 | Outpatient (REF) | payer OTHER, SELFPAY ==
[2023-09-11 10:01] LABS: MANUAL DIFF FLAG NO
[2023-09-11 10:18] LABS: Appearance Urine Clear; Basophils Absolute Auto 0.1 X10*3/uL (0.0-0.2); Basophils Percent Auto 0.7 % (0-2); Color Urine Yellow; Eosinophils Absolute Auto 0.4 X10*3/uL (0.0-0.4); Eosinophils Percent Auto 3.9 % (0-4); Glucose Urine UA >=1000 mg/dL (Negative); Hematocrit 49.8 % (42.0-52.0); Hemoglobin 16.2 g/dl (14.0-18.0); Imm Gran Abs Auto 0.02 X10*3/uL (0.00-0.03); Imm Gran Pct Auto 0.2 % (0.0-0.4); Leukocyte Esterase Urine Negative (Negative); Lymphocytes Absolute Auto 2.4 X10*3/uL (1.2-4.9); Lymphocytes Percent Auto 26.5 % (20-40); Mean Corpuscular HGB Conc 32.5 g/dl (31.0-36.0); Mean Corpuscular Hemoglobin 28.7 pg (27.0-33.0); Mean Corpuscular Volume 88.1 fL (80.0-98.0); Mean Platelet Volume 10.4 fL (9.4-12.4); Monocytes Absolute Auto 0.6 X10*3/uL (0.1-1.2); Monocytes Percent Auto 6.2 % (2-11); Neutrophils Absolute Auto 5.6 x10*3/uL (2.0-8.3); Neutrophils Percent Auto 62.5 % (45-73); Nitrite Urine Negative (Negative); PH 5.5 (5.0-9.0); Platelet Count 256 X10*3/uL (160-400); Red Blood Count 5.65 X10*6/uL (4.60-5.80); Red Cell Distribution Width 12.7 % (11.0-16.0); Specific Gravity - Urine >= 1.030 (1.005-1.025); UMIC TRIGGER UACC YES; Urine Blood Negative (Negative); Urine Ketones Negative (Negative); Urine Protein Negative (Neg-Trace); White Blood Count 8.9 X10*3/uL (4.8-10.8)
[2023-09-11 10:31] LABS: Microalbumin Urine < 5.0 mg/L
[2023-09-11 10:38] LABS: Alanine Aminotransferase 25 U/L (0-40); Albumin Level 4.1 g/dL (3.5-5.0); Alkaline Phosphatase 105 U/L (39-117); Anion Gap 12 (12-20); Aspartate Amino Transferase 11 U/L (5-37); Bilirubin Total 0.5 mg/dL (0.0-1.0); Blood Urea Nitrogen 15 mg/dL (9-16); Calcium 9.6 mg/dL (8.4-10.2); Carbon Dioxide 28 mmol/L (22-29); Chloride 104 mmol/L (96-108); Cholesterol 141 mg/dL (<200); Estimated Glomerular Filt Rate > 60; Glucose Fasting 179 mg/dL (60-99); HDL Cholesterol 37 mg/dL (>40); LDL Cholesterol Calculated 90 mg/dL (<100); Potassium 4.6 mmol/L (3.3-5.1); Sodium 139 mmol/L (135-145); Total Protein 7.1 g/dL (6.5-8.0); Triglycerides 71 mg/dL (<150)
[2023-09-11 10:51] LABS: Bacteria Urine None Seen (None Seen); Hyaline Casts Urine 0-2 /LPF (0-2); RBC Urine 0-2 /HPF (0-2); Squamous Epithelial Cell Urine 0-2 /HPF (0-2); WBC Urine 0-5 /HPF (0-5)
[2023-09-11 11:04] LABS: TSH reflex Free T4 1.05 uIU/mL (0.32-4.0)
== END 2023-09-11 08:18 | disposition home or self-care (01) ==
LOC: HO.HMGCLDS 08:17
PROVIDERS: PCP Nurse Practitioner Family; Visit Provider Nurse Practitioner Family
DX: R25.2 Cramp and spasm (principal); E11.9 Type 2 diabetes mellitus without complications
CPT/HCPCS: 36415; 80053; 80061; 81001; 82570; 84443; 85025

== ENCOUNTER 2023-10-07 07:28 | Outpatient (AMB) | payer OTHER, SELFPAY ==
--- NOTE | 2023-10-07 07:35 | MHC.PC.OV ---
Vital Signs 10/07/23 07:36 Height 6 ft 3 in Weight 285 lb BMI 35.6 BP 112/68 Blood Pressure Location Rt brachial Position Sitting Pulse 81 Pulse Source Pulse Oximeter Pulse Oximetry (%) 96 Oxygen Delivery Method Room Air Intake Visit Reasons: PE Intake Note: Pt is here today for his PE Allergies No Known Allergies Allergy (Verified 08/18/23 10:22) Medication List - Last Reconciled 10/07/23 by AARON Carpenter alprazolam 0.5 mg PO DAILY PRN 30 days atorvastatin 10 mg PO BEDTIME betamethasone dipropionate 0.05% 1 appl topical DAILY PRN blood-glucose sensor ([employer] Faizan 3 Sensor device) Test blood sugar 4 times per day empagliflozin 25 mg PO QAM ibuprofen (Advil) 400 mg PO Q8H PRN lisinopril 2.5 mg PO DAILY NS metformin 1,000 mg PO BID 90 days oxymetazoline 0.05% (Afrin (oxymetazoline)) 2 sprays intranasal Q12H PRN 3 days sildenafil 50 mg PO DAILY PRN 12 days Tobacco use date assessed: 10/07/23 Dental Screening Dental Screen Date: 04/16/23 HPI PE HPI Details Pt is here for a PE. Labs were already performed. Colon screen is up to date. Due for PSA, will order. Denies dribbling with urination, weak stream, and frequent nocturia. Pt is a diabetic, on an JEANINE and a statin. Last A1C was 7.5. Microalbumin is up to date. Denies polyuria, polydipsia, and neuropathy. Pt denies any signs and symptoms of hypoglycemia and does know how to correct it. Pt does report that his diet is way off. He knows about a proper diet. Pt does use the sensor. 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 Emmanuel Harrison, Tonya Sargent, Brett Wadsworth and colleagues, with an educational chicho from [employer]. Review of Systems Const Denies chills and Denies fever(s) Eyes Denies blurry vision ENT Denies vertigo, Denies dizziness and Denies sore throat Card Denies chest pain at rest, Denies chest pain with activity, Denies diaphoresis, Denies dyspnea and Denies dyspnea on exertion Resp Denies cough, Denies dyspnea, Denies dyspnea on exertion and Denies wheezing GI Denies abdominal pain, Denies melena, Denies hematochezia, Denies constipation, Denies diarrhea and Denies loose stools Denies hematuria Musc Denies numbness and Denies tingling Skin/Breast Denies lesions Neuro Denies vertigo, Denies dizziness, Denies numbness and Denies tingling Psych Denies anxiety, Denies depression, Denies homicidal ideation, Denies suicidal ideation and Denies other (substance abuse) Aller/Immun Denies wheezing Physical exam (Primary Care) Vital Signs: Last Vital Signs Pulse 81 10/07/23 07:36 BP 112/68 10/07/23 07:36 Pulse Ox 96 10/07/23 07:36 Oxygen Delivery Method Room Air 10/07/23 07:36 BMI result Body Mass Index 35.6 Tobacco/Smoking Status: Tobacco use Status Tobacco use date assessed 10/07/23 10/07/23 07:39 Patient Tobacco Use Status Former Tobacco user 10/07/23 07:36 Tobacco use type Cigarette 10/07/23 07:36 e-Cigarette/Vaping Use Never Used 10/07/23 07:36 Thrive Assessment: Date of Thrive Assessment Date Thrive assessed 04/16/23 10/07/23 07:36 Const General: cooperative Nutritional Appearance: obese Orientation/consciousness: patient oriented x3 HENMT Head: Yes normal to inspection, Yes normocephalic and Yes atraumatic Ears: TM's normal bilaterally Eyes General: appearance normal, both eyes and all related structures Alignment and Position: alignment normal and position normal Neck Neck: Yes normal visual inspection, Yes no lymphadenopathy and Yes supple Resp Effort & Inspection: normal respiratory effort Auscultation: clear to auscultation bilaterally Cardio Rate: regular rate Rhythm: regular rhythm Heart sounds: S1 normal heart sound present, S2 normal heart sound present and no murmurs GI Palpation (GI): Soft to palpation and nontender Auscultation: normal bowel sounds Other: refused ROSA Male General Exam: Yes normal external exam Penis: normal penis Scrotum: scrotum normal, testes descended bilaterally and no inguinal hernias Testes: no testicular mass Skin Rashes: no rashes Neuro General: patient oriented x3, moves all extremities, no focal motor deficits and deep tendon reflexes 2+ bilaterally Romberg Test: Negative Psych Appearance: grossly normal Mental Status: mental status grossly normal Speech and movement: Normal speech and movement present Affect: normal affect Attitude: cooperative Thought process: Normal thought process present Thought content: Normal thought content present Insight: Good insight present (Psych) Judgement: Good judgement present (Psych) Assessment and Plan Assessment & Plan (1) Screening PSA (prostate specific antigen): Code(s): Z12.5 - Encounter for screening for malignant neoplasm of prostate Plan: PSA ordered (2) Diabetes: Code(s): E11.9 - Type 2 diabetes mellitus without complications Plan: pt knows he needs to adjust his diet to get his A1c down. He did not tolerate a GLP-1 agonist. He knows the goal is to get his A1c between 6-7 (3) Encounter for routine adult physical exam with abnormal findings: Code(s): Z00.01 - Encounter for general adult medical examination with abnormal findings Plan The patient agreed to the use of a medical device sales representative for this encounter. Scribed for AARON Ellison by Dee Dave medical device sales representative, on 10/07/2023 at 07:40 EST. Orders: Orders Prostate Specific Antigen Scr Today Z12.5 - Encounter for screening for malignant neoplasm of prostate Coding Level of Care Code Est Pt Prev Care 40-64y(24938) Diagnoses Screening PSA (prostate specific antigen) Z12.5 Diabetes E11.9 Encounter for routine adult physical exam with abnormal findings Z00.01
[2023-10-07 07:36] VITALS: BP 112/68; PULSE 81; O2SAT 96; BMI 35.6
== END 2023-10-07 08:20 | disposition home or self-care (01) ==
LOC: HO.HMGC 07:28
PROVIDERS: PCP Nurse Practitioner Family; Visit Provider Nurse Practitioner Family
DX: Z00.00 Encounter for general adult medical examination without abnormal findings (principal); Z12.5 Encounter for screening for malignant neoplasm of prostate; E11.9 Type 2 diabetes mellitus without complications
CPT/HCPCS: 99396

== ENCOUNTER 2023-10-19 08:47 | Outpatient (AMB) | payer OTHER, SELFPAY ==
--- NOTE | 2023-10-19 09:12 | MHC.OFFVIS ---
Intake Visit Reasons: vasectomy consult Intake Note: New Patient presents for initial visit for Vasectomy Consent Children#0 Expected Children#0 Urology Medications: sildenafil Blood Thinner: none Business Partner Required: No Accompanied by: Self / Same As Patient Allergies No Known Allergies Allergy (Verified 10/19/23 16:30) Medication List - Last Reconciled 10/19/23 by ROSALINO HustonP- alprazolam 0.5 mg PO DAILY PRN 30 days atorvastatin 10 mg PO BEDTIME betamethasone dipropionate 0.05% 1 appl topical DAILY PRN blood-glucose sensor ([employer] Faizan 3 Sensor device) Test blood sugar 4 times per day empagliflozin 25 mg PO QAM ibuprofen (Advil) 400 mg PO Q8H PRN lisinopril 2.5 mg PO DAILY NS metformin 1,000 mg PO BID 90 days oxymetazoline 0.05% (Afrin (oxymetazoline)) 2 sprays intranasal Q12H PRN 3 days sildenafil 50 mg PO DAILY PRN 12 days tadalafil (Cialis) 5 mg PO DAILY 90 days HPI Comments Details: Lawrence is a 53-year-old male patient of Dr. Jennings. He presents to the office today for follow-up of his ongoing lower urinary tract symptoms, vasectomy consultation, and erectile dysfunction. In discussion with the patient today he reports noting intermittent episodes of urinary urgency and urinary dribbling. He also reports noting issues with erectile dysfunction. He discusses his long-term relationship of 9 years however discusses he has not been sexually active for over 3 years. He discusses feeling being overweight and having diabetes has affect his issues with his erections. We discussed at length these issues in relation to lower urinary tract symptoms as well as erections. In review of patient's chart it appears A1c 09/01 7.5. We discussed at length potential causes of lower urinary tract symptoms patient is experiencing as well as erectile dysfunction. He also discusses a longstanding history of nephrolithiasis. In review of patient's chart it appears CT 12/01 noted 2 mm obstructing calculus in the left terminal ureter with mild hydroureteronephrosis. Nonobstructing renal calculus bilaterally. Partial distended urinary bladder with mild wall thickening possibly cystitis can not be excluded. He reports having passed obstructing stone since then. He otherwise denies incontinence, nocturia, hematuria, dysuria, foul smelling urine, changes to urinary stream, flank pain, fever, and or chills. Vasectomy consultation was performed. Consent was obtained. Vasectomy evaluation The patient presents for vasectomy consultation.? 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 He has fathered no children.? The youngest child is not applicable. His partner is aware and permissive for a vasectomy. 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 The vasectomy may be complicated due to a history of none. Patient education has been provided via AUA video, via printed information, risks of failure, recovery time, bruising and potential pain syndrome have been stressed Discussion today focused on the presence of vasectomy and the risks, benefits and alternatives that are available. Vasectomy as intended as a permanent form of control. Printed information and literature was provided to the patient. Overall there is a one in 2500 failure rate. This can occur at any time after vasectomy. Risks were discussed highlighting hematoma, spermatocele, epididymal congestion, development of sperm antibodies, and development of chronic pain estimated between 1-5%. The procedure was reviewed in detail. Anatomical diagrams of the male genitalia were used to explain the location of the vas deferens. The vas deferens will be transected, the proximal end will be cauterized, a metal clip would be applied to separate the 2 vas deferens ends. It was explained the procedure will be done in the office and takes approximately 10-15 minutes. Less common problems that arise with vasectomy include hematoma, bleeding, allergic reaction to anesthetic, epididymal infection, epididymal congestion, scrotal discomfort, spermatic leak, spermatic granuloma and the possibility of antisperm antibodies. He understands these risks and wishes to proceed. Consent was signed at the office today. He also understands that it takes 12 weeks for sperm to fully clear the system. He will need to provide a semen sample at 12 weeks and if this is not clear a 2nd sample at 16 weeks. Medical clearance to stop using protection will only be provided if he satisfies published criteria for sperm clearance. [facility] Medical History (Updated 10/19/23 @ 19:20 by [facility]AY [facility]L.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 Current occupational exposures/hazards: No Cognitive needs: No Hearing needs: No Vision needs: No Review of Systems Const All systems reviewed & are unremarkable except as noted in HPI and below Physical Exam Const General: cooperative, healthy appearing, comfortable, no acute distress, well developed, alert and awake Nutritional Appearance: overweight Orientation/consciousness: patient oriented x3 Limitations: no limitations HEENT Head: Yes normal to inspection, Yes normocephalic and Yes atraumatic Ears: hearing grossly normal bilaterally Eyes General: appearance normal, both eyes and all related structures Neck Neck: Yes normal visual inspection and Yes trachea midline Chest Chest palpation & inspection: normal inspection of the chest Resp Effort & Inspection: normal respiratory effort and able to speak in complete sentences Cardio Rate: regular rate GI Inspection: Yes normal to inspection General: Yes no CVA tenderness Back/Spine/Pelvis Back: no CVA tenderness Skin General skin exam: no rashes or lesions noted Neuro General: patient oriented x3 Extrem General: Yes normal to inspection Psych Appearance: grossly normal and well kempt Mental Status: mental status grossly normal Speech and movement: Normal speech and movement present and Clear speech present Affect: normal affect Attitude: cooperative Thought process: Normal thought process present Thought content: Normal thought content present Insight: Fair insight present (Psych) Judgement: Fair judgement present (Psych) Assessment & Plan Assessment & Plan (1) Vasectomy evaluation: Code(s): Z30.09 - Encounter for other general counseling and advice on contraception Category: Medical (2) Anxiety about health: Code(s): R45.89 - Other symptoms and signs involving emotional state Category: Medical (3) Nephrolithiasis: Code(s): N20.0 - Calculus of kidney Category: Medical (4) Erectile dysfunction associated with type 2 diabetes mellitus: Code(s): E11.69 - Type 2 diabetes mellitus with other specified complication; N52.1 - Erectile dysfunction due to diseases classified elsewhere Category: Medical (5) Urinary dribbling: Code(s): N39.43 - Post-void dribbling Category: Medical (6) Urinary urgency: Code(s): R39.15 - Urgency of urination Category: Medical (7) Bladder wall thickening: Code(s): N32.89 - Other specified disorders of bladder Category: Medical Plan Vasectomy was discussed at length; risks and benefits; as noted above. Consent was obtained. All questions were answered. Discussed semen analysis in office verses fellows kit; information provided. Start Cialis as discussed and prescribed. Will obtain PSA for further assessment evaluation. Discussed obtaining retroperitoneal ultrasound however patient declines at this time. Discussed, stressed, and educated on the importance of managing diabetes for improvement in lower urinary tract symptoms, ED, and overall health and well being. Schedule for vasectomy as discussed. Follow up in 1-3 months with lab to be completed prior; or sooner with any issues concerns or questions; Orders: Orders Prostate Specific Antigen Today N40.0 - Benign prostatic hyperplasia without lower urinary tract symptoms Medications: New diazepam Take medication after arrival at office 2 mg PO ONCE 1 day PRN 2 tabs 0RF anxiety R45.89 - Other symptoms and signs involving emotional state acetaminophen-codeine 300-30 mg 1 tab PO Q8H 3 days 9 tabs 0RF R45.89 - Other symptoms and signs involving emotional state tadalafil (Cialis) [id number] [facility] [id number] Member [id number] 5 mg PO DAILY 90 days 90 tabs 1RF acetaminophen-codeine 300-30 mg 1 tab PO Q8H 3 days 9 tabs 0RF R45.89 - Other symptoms and signs involving emotional state Patient Instructions: The patient had an opportunity to ask questions regarding the treatment plan. All questions were answered. Physical exam, labs, and imaging were discussed and reviewed in detail. As well as risks, benefits, and discussion of treatment choices. No major barriers to understanding were identified. The patient expressed understanding and agreement with the above treatment plan. The patient was made aware they should contact our office by phone for worsening of their current condition, the appearance of new symptoms, or with any questions or concerns. Compliance is encouraged with any medications and follow up testing that is ordered. It is a privilege to be allowed the opportunity to participate in? your urological care.? Again, if you have any questions or concerns If you have any questions or concerns please do not hesitate to contact me. The office is [phone]. This note is constructed using voice recognition software. While every effort has been made to ensure accuracy interventional neuroradiologist errors may have been included. Yours sincerely, AARON Huston Coding Level of Care Code New Pt Level 4 (27043) Diagnoses Vasectomy evaluation Z30.09 Anxiety about health R45.89 Nephrolithiasis N20.0 Erectile dysfunction associated with type 2 diabetes mellitus E11.69; N52.1 Urinary dribbling N39.43 Urinary urgency R39.15 Bladder wall thickening N32.89
== END 2023-10-19 09:49 | disposition home or self-care (01) ==
PROVIDERS: PCP Nurse Practitioner Family; Visit Provider Nurse Practitioner Family
DX: Z30.09 Encounter for other general counseling and advice on contraception (principal); R45.89 Other symptoms and signs involving emotional state; N20.0 Calculus of kidney; E11.69 Type 2 diabetes mellitus with other specified complication; N52.1 Erectile dysfunction due to diseases classified elsewhere; N39.43 Post-void dribbling; R39.15 Urgency of urination; N32.89 Other specified disorders of bladder
CPT/HCPCS: 99204

== ENCOUNTER → 2023-10-19 08:47 | Outpatient (BNVA) | payer OTHER, SELFPAY | PROVIDERS: PCP Nurse Practitioner Family; Visit Provider Nurse Practitioner Family ==

== ENCOUNTER 2023-10-31 11:37 | Emergency (ER) | payer OTHER, SELFPAY ==
--- NOTE | ~2023-10-31 | CT_ITS ---
EXAMINATION: CT ABDOMEN AND PELVIS WITHOUT CONTRAST CLINICAL INFORMATION: Right flank pain. Stones. COMPARISON: Most recent abdominal ultrasound dated 10/23/2021. TECHNIQUE: Multidetector volumetric imaging was performed from the superior aspect of the liver through the pubic symphysis. Sagittal and coronal reformatted images were obtained on the technologist's workstation. This CT examination was performed using dose optimization techniques as appropriate, variously including the following: *Automated exposure control. *Adjustment of mA and/or kV according to patient size (this includes techniques or standardized protocols for targeted exams where dose is matched to indication/reason for exam; i.e. extremities or head). *Use of iterative reconstruction technique. DLP: 962 mGy-cm FINDINGS: LUNG BASES: The visualized lung bases are unremarkable. LIVER, GALLBLADDER, AND BILIARY TREE: The liver is normal in size, shape, and attenuation. No focal hepatic lesion or biliary ductal dilatation is present. The gallbladder is unremarkable with no evidence of radiopaque gallstones, gallbladder wall thickening, or obvious pericholecystic inflammatory changes. PANCREAS: Unremarkable. SPLEEN: Unremarkable. ADRENAL GLANDS: Unremarkable. KIDNEYS AND URETERS: The kidneys are normal in size, shape, and attenuation. There are multiple tiny bilateral nonobstructing renal stones measuring up to 0.2 cm within the left lower pole. No ureteral stone. No hydronephrosis or hydroureter. Left renal parapelvic cysts. No perinephric stranding. BLADDER: Unremarkable. No wall thickening or inflammatory change. No intraluminal calcification. GASTROINTESTINAL TRACT: No bowel wall thickening or inflammatory change. No small or large bowel obstruction. Unremarkable appendix. PERITONEAL CAVITY: No intra-abdominal free air or free fluid. No intra-abdominal mass or organized fluid collection/abscess formation. ABDOMINAL WALL: No significant hernia is appreciated. LYMPH NODES: No significant lymphadenopathy. VASCULAR: No abdominal aortic dilatation. Atherosclerotic calcifications. PELVIC VISCERA: Mild prostatomegaly. OSSEOUS STRUCTURES: Degenerative disc disease at L4-L5 and L5-S1 with multilevel bilateral lower lumbar spine facet arthropathy. Mild bilateral hip osteoarthritis. No acute osseous abnormality. CT/CT abdomen pelvis wo IV con IMPRESSION: 1. Multiple tiny bilateral nonobstructing renal stones measuring up to 0.2 cm. No ureteral stone. No hydronephrosis or hydroureter. Unremarkable urinary bladder. 2. No bowel wall thickening or inflammatory change. No small or large bowel obstruction. Unremarkable appendix. 3. No intra-abdominal mass, lymphadenopathy, or ascites. 4. Degenerative disc disease at L4-L5 and L5-S1 with multilevel bilateral lower lumbar spine facet arthropathy. Mild bilateral hip osteoarthritis. Fleischner guidelines were followed. Electronically signed by: Emmanuel Badillo MD 10/31/2023 02:15 PM EDT
[2023-10-31 11:42] VITALS: BP 122/65; PULSE 69; RESP 18; TEMP 36.3; O2SAT 98; BMI 35.3
--- NOTE | 2023-10-31 11:43 | ED.GENADULT ---
HPI - General Adult General Chief complaint: General Medical Stated complaint: kidney stone Time Seen by Provider: 10/31/23 13:55 Source: patient and family ( Spouse) Mode of arrival: ambulatory Limitations: no limitations History of Present Illness ED Provider: DR. Durbin HPI narrative: a 53-year-old male came in for evaluation right flank pain for 3 days pain is intermittent more with urination, patient had history of kidney stones in the past. 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 No CP, no SOB, no abdominal pain, no fever, no chills, normal bowel movement, normal urination, no dysuria, no frequency urination. Related Data Home Medications ?Medication ?Instructions ?Recorded ?Confirmed ibuprofen 200 mg tablet (Advil) 400 mg PO Q8H PRN 10/01/22 10/07/23 Previous Rx's ?Medication ?Instructions ?Recorded alprazolam 0.5 mg tablet 0.5 mg PO DAILY PRN anxiety 30 09/30/21 days #30 tabs sildenafil 50 mg tablet 50 mg PO DAILY PRN sexual activity 09/30/21 12 days #12 tabs betamethasone dipropionate 0.05 % 1 appl topical DAILY PRN skin 01/09/22 topical cream irritation #45 grams oxymetazoline 0.05 % nasal spray 2 spray intranasal Q12H PRN nasal 05/25/23 (Afrin (oxymetazoline)) congestion 3 days #22 mL metformin 1,000 mg tablet 1,000 mg PO BID 90 days #180 tabs 07/01/23 atorvastatin 10 mg tablet 10 mg PO BEDTIME #90 tabs 07/09/23 empagliflozin 25 mg tablet 25 mg PO QAM #90 tabs 08/18/23 blood-glucose sensor ([employer] #6 ea 08/31/23 Faizan 3 Sensor device) lisinopril 2.5 mg tablet 2.5 mg PO DAILY #90 tabs 10/05/23 diazepam 2 mg tablet 2 mg PO ONCE PRN anxiety 1 day #2 10/19/23 tabs tadalafil 5 mg tablet (Cialis) 5 mg PO DAILY 90 days #90 tabs 10/19/23 tramadol 50 mg tablet 50 mg PO Q8H PRN pain #7 tabs 10/27/23 cyclobenzaprine 10 mg tablet 10 mg PO TID PRN muscle spasm #14 10/31/23 tabs Allergies Allergy/AdvReac Type Severity Reaction Status Date / Time No Known Allergies Allergy Verified 10/31/23 11:42 Review of Systems Review of Systems: All other systems are reviewed and are negative Constitutional: Reports as per HPI and Reports no additional constitutional complaints Eyes: Reports as per HPI and Reports no additional eye complaints Reports system reviewed and no additional complaints, except as documented Cardiovascular: Reports as per HPI and Reports no additional cardiovascular complaints Respiratory: Reports as per HPI and Reports no additional respiratory complaints Gastrointestinal: Reports as per HPI and Reports no additional gastrointestinal complaints Genitourinary: Reports no additional female genitourinary complaints Musculoskeletal: Reports no additional musculoskeletal complaints Skin/Breast: Reports system reviewed and no additional complaints, except as docu Psychiatric: Reports no additional psychiatric complaints Endocrine: Reports no additional endocrine complaints Hematologic/Lymphatic: Reports no additional hematologic/lymphatic complaints Allergic/Immunologic: Reports no additional allergic/immunologic complaints Reports system reviewed and no additional complaints, except as documented and Reports Abnormal speech present [facility] Past Medical History Medical History Cough Chills Diabetes Erectile dysfunction Surgical History Hx of colonoscopy Family History Family History Sister Mental health disorder Sister Mental health disorder Mother Mental health disorder Social History Social History Housing: House Comment: medicated Patient Tobacco Use Status: Former Tobacco user Tobacco use type: Cigarette Smoked in Last 30 Days: No e-Cigarette/Vaping Use: Never Used Second Hand Smoke Exposure: No Use of substances other than those prescribed or required for medical reasons: No Advance Directives: No Do you have a plan to hurt others: No Plan service: No Current occupational status: employed 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 Current occupational exposures/hazards: No Cognitive needs: No Hearing needs: No Vision needs: No Physical Exam ED Vital Signs: Vital Signs - 24 hr 10/31/23 11:42 10/31/23 13:24 10/31/23 15:24 Temperature 97.3 F 97.7 F Pulse Rate 69 67 64 Respiratory Rate 18 16 18 Blood Pressure 122/65 118/61 105/57 L Pulse Oximetry 98 97 98 Oxygen Delivery Method Room Air Room Air Room Air 10/31/23 15:28 Temperature 0 F L Pulse Rate 64 Respiratory Rate 18 Blood Pressure 105/57 L Pulse Oximetry 98 Oxygen Delivery Method Room Air BMI result Body Mass Index 35.3 Vital signs have been reviewed and appear to be correct. Blood pressure elevated. Heart rate normal. Respiratory rate normal. Temperature normal. Oxygen saturation normal. Appearance: Anxious, Alert. Oriented X3. No acute distress. Head: Normal external exam. Normocephalic. Atraumatic. No Velasco signs noted. No raccoon eyes noted Eyes: PERRLA. EOMI. Conjunctiva and sclera normal. Eyelids normal. ENT: TM's Normal. Pharynx normal. Uvula midline. Moist mucous membranes. No trismus noted. No drooling noted. No muffled voice noted. Neck: Normal inspection. Neck supple. FROM. No adenopathy. Thyroid Normal. No meningeal signs. No neck mass noted. CVS: Normal heart rate and rhythm. Heart sound normal. No murmurs noted. Pulses normal throughout. Respiratory: No respiratory distress. Painless inspiration. Breath sounds normal. No wheezes/rales/rhonchi noted. Chest nontender. No accessory muscle usage noted or decreased air movement noted. Abdomen: Soft and nontender. Bowel sounds normal in all 4 quadrants. No distention noted. No organomegaly noted. No visible injury noted. Back: No CVA tenderness. Full range of motion noted. Skin: Skin warm and dry. Normal skin color. Normal skin turgor. No rashes/lesions/lacerations noted. Extremities: No lower extremity edema. Extremities exhibit normal range of motion. Extremities nontender. Neuro: Oriented X 3. Cranial nerve exam: II-XII are grossly intact No motor deficit. No sensory deficit. Reflexes normal. Course Course Course Narrative: This is a rapid medical exam performed by Cedric Reardon NP: Additional HPI, ROS, PE not included below will be deferred to primary provider. Patient is a 53-year-old male presenting with 4 days of leg cramping/spasms, then night developed sudden onset severe right flank pain after urinating. Hx of kidney stones, feels similar. Plan: Labs, UA, CT Reevaluation(s) Reevaluation #1: VSS, labs are unremarkable, no obstructive uropathy. 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 Patient was instructed to relax using muscle relaxant and warm compression with NSAIDs versus Tylenol if needed. Time: 15:00 Medical Decision Making Differential Diagnosis Differential Diagnoses: The differential diagnosis associated with the presentation includes ( obstructive uropathy, electrolyte derangement, severe anemia, acute appendicitis, colitis, diverticulitis, muscular cramps, UTI , pyelonephritis.) Admission/Observation Consideration of admission/observation: Escalation of care including admission/observation considered Lab Data MDM Lab Attestation statement: I reviewed the patient's lab results. 10/31/23 12:20 10/31/23 12:20 Labs: Lab Results 10/31/23 Range/Units 12:20 WBC 7.9 (4.8-10.8) X10*3/uL RBC 5.39 (4.60-5.80) X10*6/uL Hgb 15.8 (14.0-18.0) g/dl Hct 47.4 (42.0-52.0) % MCV 87.9 (80.0-98.0) fL MCH 29.3 (27.0-33.0) pg MCHC 33.3 (31.0-36.0) g/dl RDW 12.8 (11.0-16.0) % Plt Count 243 (160-400) X10*3/uL MPV 9.8 (9.4-12.4) fL Immature Gran % (Auto) 0.1 (0.0-0.4) % Neut % (Auto) 60.3 (45-73) % Lymph % (Auto) 26.6 (20-40) % [place] % (Auto) 7.1 (2-11) % Eos % (Auto) 5.3 H (0-4) % Baso % (Auto) 0.6 (0-2) % Lymph # (Auto) 2.1 (1.2-4.9) X10*3/uL [place] # (Auto) 0.6 (0.1-1.2) X10*3/uL Eos # (Auto) 0.4 (0.0-0.4) X10*3/uL Baso # (Auto) 0.1 (0.0-0.2) X10*3/uL Abs Immat Gran (auto) 0.01 (0.00-0.03) X10*3/uL Absolute Neuts (auto) 4.7 (2.0-8.3) x10*3/uL Absolute Nucleated RBC 0.000 (0.0-0.012) X10*3/uL Nucleated RBC % (auto) 0.0 (0.0-0.2) /100WBC Sodium 138 (135-145) mmol/L Potassium 4.2 (3.3-5.1) mmol/L Chloride 105 (96-108) mmol/L Carbon Dioxide 25 (22-29) mmol/L Anion Gap 12 (12-20) BUN 12 (9-16) mg/dL Creatinine 0.87 (0.5-1.4) mg/dL Estim Creat Clear Calc 143.1 Estimated GFR > 60 Random Glucose 188 H (60-115) mg/dL Calcium 9.0 D (8.4-10.2) mg/dL Total Bilirubin 0.7 (0.0-1.0) mg/dL AST 11 (5-37) U/L ALT 29 (0-40) U/L Alkaline Phosphatase 101 (39-117) U/L Total Protein 6.9 (6.5-8.0) g/dL Albumin 4.0 (3.5-5.0) g/dL Urine Color Yellow Urine Appearance Clear Urine pH 5.5 (5.0-9.0) Ur Specific [place] >= 1.030 H (1.005-1.025) Urine Protein Negative (Neg-Trace) mg/dL Urine Glucose (UA) >=1000 H (Negative) mg/dL Urine Ketones Negative (Negative) mg/dL Urine Blood Negative (Negative) Urine Nitrite Negative (Negative) Ur Leukocyte Esterase Negative (Negative) Urine RBC 0-2 (0-2) /HPF Urine WBC 0-5 (0-5) /HPF Ur Squamous Epith Cells 0-2 (0-2) /HPF Urine Bacteria None Seen (None Seen) Hyaline Casts 0-2 (0-2) /LPF Independent Interpretation I performed an independent interpretation of an: CT Scan ( Abdomen pelvis:1. Multiple tiny bilateral nonobstructing renal stones measuring up to 0.2 cm. No ureteral stone. No hydronephrosis or hydroureter. Unremarkable urinary bladder. 2. No bowel wall thickening or inflammatory change. No small or large bowel obstruction. Unremarkable appendix. 3.) Radiology Impression Discussion of test interpretation with radiology: I have reviewed the radiologist's reading. Discharge Plan Discharge Clinical Impression: Leg cramps Patient Disposition: Home, Self-Care Instructions: Muscle Cramp (ED) Prescriptions: New cyclobenzaprine 10 mg tablet 10 mg PO TID PRN (Reason: muscle spasm) Qty: 14 0RF No Action metformin 1,000 mg tablet 1,000 mg PO BID 90 Days Qty: 180 1RF atorvastatin 10 mg tablet 10 mg PO BEDTIME Qty: 90 1RF (DME) [employer] 3 Sensor Device See Rx Instructions .Route Qty: 6 1RF Rx Instructions: Test blood sugar 4 times per day lisinopril 2.5 mg tablet 2.5 mg PO DAILY Qty: 90 1RF tramadol 50 mg tablet 50 mg PO Q8H PRN (Reason: pain) Qty: 7 0RF ibuprofen [Advil] 200 mg tablet 400 mg PO Q8H PRN betamethasone dipropionate 0.05 % cream 1 appl topical DAILY PRN (Reason: skin irritation) Qty: 45 1RF empagliflozin 25 mg tablet 25 mg PO QAM Qty: 90 1RF oxymetazoline [Afrin (oxymetazoline)] 0.05 % spray,non-aerosol 2 spray intranasal Q12H PRN (Reason: nasal congestion) 3 Days Qty: 22 0RF sildenafil 50 mg tablet 50 mg PO DAILY PRN (Reason: sexual activity) 12 Days Qty: 12 0RF Rx Instructions: administer 30 minutes to 4 hours before activity alprazolam 0.5 mg tablet 0.5 mg PO DAILY PRN (Reason: anxiety) 30 Days Qty: 30 0RF tadalafil [Cialis] 5 mg tablet 5 mg PO DAILY 90 Days Qty: 90 1RF Rx Instructions: [id number] [facility] [id number] Member [id number] diazepam 2 mg tablet 2 mg PO ONCE PRN (Reason: anxiety) 1 Days Qty: 2 0RF Rx Instructions: Take medication after arrival at office Interventions: ED Discharge Assessment Last Done: 10/31/23 15:28 Discharge Date/Time: 10/31/23 15:28 Print Language: Irish
[2023-10-31 12:25] LABS: MANUAL DIFF FLAG NO
[2023-10-31 12:27] LABS: Basophils Absolute Auto 0.1 X10*3/uL (0.0-0.2); Basophils Percent Auto 0.6 % (0-2); Eosinophils Absolute Auto 0.4 X10*3/uL (0.0-0.4); Eosinophils Percent Auto 5.3 % (0-4); Hematocrit 47.4 % (42.0-52.0); Hemoglobin 15.8 g/dl (14.0-18.0); Imm Gran Abs Auto 0.01 X10*3/uL (0.00-0.03); Imm Gran Pct Auto 0.1 % (0.0-0.4); Lymphocytes Absolute Auto 2.1 X10*3/uL (1.2-4.9); Lymphocytes Percent Auto 26.6 % (20-40); Mean Corpuscular HGB Conc 33.3 g/dl (31.0-36.0); Mean Corpuscular Hemoglobin 29.3 pg (27.0-33.0); Mean Corpuscular Volume 87.9 fL (80.0-98.0); Mean Platelet Volume 9.8 fL (9.4-12.4); Monocytes Absolute Auto 0.6 X10*3/uL (0.1-1.2); Monocytes Percent Auto 7.1 % (2-11); Neutrophils Absolute Auto 4.7 x10*3/uL (2.0-8.3); Neutrophils Percent Auto 60.3 % (45-73); Platelet Count 243 X10*3/uL (160-400); Red Blood Count 5.39 X10*6/uL (4.60-5.80); Red Cell Distribution Width 12.8 % (11.0-16.0); White Blood Count 7.9 X10*3/uL (4.8-10.8)
[2023-10-31 12:30] LABS: Appearance Urine Clear; Color Urine Yellow; Glucose Urine UA >=1000 mg/dL (Negative); Leukocyte Esterase Urine Negative (Negative); Nitrite Urine Negative (Negative); PH 5.5 (5.0-9.0); Specific Gravity - Urine >= 1.030 (1.005-1.025); UMIC TRIGGER UACC YES; Urine Blood Negative (Negative); Urine Ketones Negative (Negative); Urine Protein Negative (Neg-Trace)
[2023-10-31 12:35] LABS: Bacteria Urine None Seen (None Seen); Hyaline Casts Urine 0-2 /LPF (0-2); RBC Urine 0-2 /HPF (0-2); Squamous Epithelial Cell Urine 0-2 /HPF (0-2); WBC Urine 0-5 /HPF (0-5)
[2023-10-31 12:43] LABS: Alanine Aminotransferase 29 U/L (0-40); Alkaline Phosphatase 101 U/L (39-117); Anion Gap 12 (12-20); Aspartate Amino Transferase 11 U/L (5-37); Bilirubin Total 0.7 mg/dL (0.0-1.0); Blood Urea Nitrogen 12 mg/dL (9-16); Carbon Dioxide 25 mmol/L (22-29); Chloride 105 mmol/L (96-108); Creatinine Clr Calc Pharmacy 143.1; Estimated Glomerular Filt Rate > 60; Glucose Random 188 mg/dL (60-115); Potassium 4.2 mmol/L (3.3-5.1); Sodium 138 mmol/L (135-145); Total Protein 6.9 g/dL (6.5-8.0)
[2023-10-31 13:24] VITALS: BP 118/61; PULSE 67; RESP 16; TEMP 36.5; O2SAT 97
--- NOTE | 2023-10-31 13:35 | PC.NURSE ---
pt is alert and oriented, skin pwd, respirations even and unlabored, pt reports for the last three days having bilateral leg cramping, and left sided flank pain , no pain at this time, denies n/v/abd pain, hx of kidney stones, pt also states that pain in the flank area was mostly when needed to urinate, sometimes during and after urinating, vs stable
[2023-10-31 15:24] VITALS: BP 105/57; PULSE 64; RESP 18; O2SAT 98
[2023-10-31 15:28] VITALS: BP 105/57; PULSE 64; RESP 18; TEMP -17.7; TEMP 0; O2SAT 98
== END 2023-10-31 15:28 | disposition home or self-care (01) ==
PROVIDERS: Registered Nurse Emergency; Emergency Provider Emergency Medicine; PCP Nurse Practitioner Family
DX: R25.2 Cramp and spasm (principal); R30.9 Painful micturition, unspecified; E11.9 Type 2 diabetes mellitus without complications; Z87.442 Personal history of urinary calculi; Z79.899 Other long term (current) drug therapy
CPT/HCPCS: 36415; 74176; 80053; 81001; 85025; 99284

== ENCOUNTER 2023-11-10 11:36 | Outpatient (AMB) | payer OTHER, SELFPAY ==
[2023-11-10 11:36] VITALS: BP 140/78; PULSE 83; TEMP 36.1; O2SAT 98; BMI 35.2
--- NOTE | 2023-11-10 11:36 | MHC.OFFWIV ---
Intake Vital Signs 11/10/23 11:36 Height 6 ft 3 in Weight 281 lb 6 oz BMI 35.2 BP 140/78 H Blood Pressure Location Rt brachial Position Sitting Pulse 83 Pulse Source Pulse Oximeter Temp 97.0 F Temp Source Temporal Artery Scan Pulse Oximetry (%) 98 Oxygen Delivery Method Room Air Intake Visit Reasons: EP Leg spasms Intake Note: Pt presents to the office today for c/o leg spasms that has been going on for about a week. Patient Tobacco Use Status: Former Tobacco user Allergies No Known Allergies Allergy (Verified 11/10/23 11:37) HPI HPI Comments History of Present Illness Details 53 y/o patient who presents to the walk in clinic with c/o Muscle cramping associated with Spasm. Reports the cramping and Spasm only located on the back of his Thighs. Describes as getting an electrical shock intermittently. He was on Atorvastatin when he believes the symptoms started, PCP advised him to take with Magnesium. Today Pt reports not taking either one due to side effects that he read online. He does admit that Magnesium did help alittle bit. 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 Current occupational exposures/hazards: No Cognitive needs: No Hearing needs: No Vision needs: No Review of Systems Const All systems reviewed & are unremarkable except as noted in HPI and below Physical Exam Vital Signs: Last Vital Signs Temp 97.0 F 11/10/23 11:36 Pulse 83 11/10/23 11:36 BP 140/78 H 11/10/23 11:36 Pulse Ox 98 11/10/23 11:36 Oxygen Delivery Method Room Air 10/01/24 11:36 BMI result Body Mass Index 35.2 Const General: cooperative and no acute distress Nutritional Appearance: obese Orientation/consciousness: patient oriented x3 Skin General skin exam: no rashes or lesions noted Neuro General: patient oriented x3, gait normal and moves all extremities Extrem Right lower extremity: normal to inspection, full ROM and hip/thigh Details: normal to inspection and normal ROM; no tenderness, no swelling, no crepitus and no deformity Left lower extremity: normal to inspection, full ROM and hip/thigh Details: normal to inspection and normal ROM; no tenderness and no swelling Psych Speech and movement: Normal speech and movement present Assessment & Plan Assessment & Plan (1) Muscle spasm of both lower legs: Code(s): M62.838 - Other muscle spasm Plan: Consulted with PCP (Naldo) and recommended CoQ10 and B-Complex. Pt was informed that he could purchase these at any Pharmacy or whole sale stores. F/U with PCP as scheduled. Coding Level of Care Code Est Pt Level 3 (34983) Diagnoses Muscle spasm of both lower legs M62.838 Time Spent (min) 15
== END 2023-11-10 12:39 | disposition home or self-care (01) ==
PROVIDERS: PCP Nurse Practitioner Family; Visit Provider Nurse Practitioner Family
DX: M62.838 Other muscle spasm (principal)

== ENCOUNTER → 2023-11-10 11:36 | Outpatient (BNVA) | payer OTHER, SELFPAY | PROVIDERS: PCP Nurse Practitioner Family ==

== ENCOUNTER 2023-11-19 14:44 | Outpatient (REF) | payer OTHER, SELFPAY ==
--- NOTE | ~2023-11-19 | XR_ITS ---
EXAMINATION: XR LUMBAR SPINE 3 VIEWS CLINICAL INFORMATION: R/O DJD. Right leg pain, low back pain. COMPARISON: No prior. CT Abdomen pelvis without IV contrast 10/31/2023 TECHNIQUE: 3 views of lumbar spine were obtained. FINDINGS: Normal bony mineralization. Transitional lumbosacral anatomy with 6 nonrib-bearing vertebral bodies present. For the purposes of this report, the last fully developed vertebral body will be termed L5 and appears partially sacralized. If intervention is considered, recommend confirmation of level counting. Minimal levoconvex scoliosis centered at L3. Mild straightening of the normal lordosis. 2 mm degenerative type retrolisthesis L2 on L3. Alignment is otherwise anatomic. No fractures or compression deformities. No suspicious focal bone lesions. Degenerative facet changes present spanning L4-S1. Moderate disc degeneration L4-5. Hypoplastic disc space L5-S1. There is otherwise only mild disc degeneration. Soft tissues demonstrate early vascular calcifications. Imaged sacrum and SI joints demonstrate periarticular sclerosis right greater than left, findings which are atypical for degenerative SI joint arthropathy. Fusion of the L5-S1 spinous processes suggests but is not definitive for ankylosing spondylitis. Cannot exclude inflammatory arthropathy. XR/XR lumbar spine 4V min IMPRESSION: 1. Mild spondylosis, most significant at L4-S1. 2. Transitional lumbosacral anatomy, with a transitional partially sacralized L5 vertebral body. If intervention is considered, recommend confirmation of level counting. 3. Moderate degenerative disc disease at L4-5. Hypoplastic disc at L5-S1. Otherwise only mild disc degeneration. 4. Periarticular sclerosis of the right greater than left SI joint, atypical for degenerative arthrosis, and inflammatory arthrosis should be considered (seropositive and seronegative spondyloarthropathies). Electronically signed by: Monty Waldrop MD 01/26/2024 03:27 PM MARICEL
[2023-11-19 16:51] LABS: Prostate Specific Antigen 1.24 ng/mL (<0.05-4.0)
== END 2023-11-19 14:45 | disposition home or self-care (01) ==
LOC: HO.HMGCX 14:44
PROVIDERS: PCP Nurse Practitioner Family; Referring Provider Chiropractor; Visit Provider Nurse Practitioner Family
DX: N40.0 Benign prostatic hyperplasia without lower urinary tract symptoms (principal); M54.50 Low back pain, unspecified; Z12.5 Encounter for screening for malignant neoplasm of prostate
CPT/HCPCS: 36415; 72110; 84153

== ENCOUNTER → 2023-11-19 14:55 | Outpatient (BNV) | payer OTHER, SELFPAY | PROVIDERS: PCP Nurse Practitioner Family; Referring Provider Chiropractor; Visit Provider Radiology Diagnostic Radiology | DX: M54.50 Low back pain, unspecified (principal); M79.604 Pain in right leg | CPT/HCPCS: 72100 ==

== ENCOUNTER 2023-12-03 07:30 | Outpatient (AMB) | payer OTHER, SELFPAY ==
--- NOTE | 2023-12-03 07:36 | MHC.OFFVIS ---
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 Required: No Accompanied by: Self / Same As Patient Allergies No Known Allergies Allergy (Verified 12/03/23 08:43) Medication List - Last Reconciled 12/03/23 by ROSALINO HustonP- alprazolam 0.5 mg PO DAILY PRN 30 days betamethasone dipropionate 0.05% 1 appl topical DAILY PRN blood-glucose sensor (MoPixStyle Faizan 3 Sensor device) Test blood sugar 4 times per day cyclobenzaprine 10 mg PO TID PRN diazepam 2 mg PO ONCE PRN 1 day empagliflozin 25 mg PO QAM ibuprofen (Advil) 400 mg PO Q8H PRN lisinopril 2.5 mg PO DAILY NS magnesium oxide 400 mg PO DAILY metformin 1,000 mg PO BID 90 days oxymetazoline 0.05% (Afrin (oxymetazoline)) 2 sprays intranasal Q12H PRN 3 days sildenafil 50 mg PO DAILY PRN 12 days tadalafil (Cialis) 5 mg PO DAILY 90 days tramadol 50 mg PO Q8H PRN HPI Comments Details: Lawrence is a 53-year-old male patient of Dr. Jennings. He presents to the office today for follow-up of his ongoing lower urinary tract symptoms dysfunction and erectile dysfunction. Of note, patient was seen approximately 6 weeks ago at which time a PSA was ordered for further assessment evaluation and prescription provided for daily dosing of tadalafil. In discussion with the patient today he reports he had only trialed tadalafil on a p.r.n. basis and not daily dosing as discussed. He continues to report episodes of urinary urgency. In office urinalysis results reviewed with the patient today 3+ glucose otherwise within normal limits. We discussed at length affects of diabetes on lower urinary tract symptoms as well as the bladder. PSA results are as follows 12/02 1.2.c in review of patient's chart it appears last A1c 09/01 7.5. We discussed at length potential causes of lower urinary tract symptoms patient is experiencing as well as erectile dysfunction. He also discusses a longstanding history of nephrolithiasis. In review of patient's chart it appears most recent CT 12/02 there are multiple tiny bilateral nonobstructing renal stones measuring up to 2 mm within the left lower pole. No ureteral stones. No hydronephrosis or hydroureter noted. The bladder is unremarkable. No bladder wall thickening.-He otherwise denies incontinence, nocturia, hematuria, dysuria, foul smelling urine, changes to urinary stream, flank pain, fever, and or chills. 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 Current occupational exposures/hazards: No Cognitive needs: No Hearing needs: No Vision needs: No Review of Systems Const All systems reviewed & are unremarkable except as noted in HPI and below Physical Exam Const General: cooperative, healthy appearing, comfortable, no acute distress, well developed, alert and awake Nutritional Appearance: overweight Orientation/consciousness: patient oriented x3 Limitations: no limitations HEENT Head: Yes normal to inspection, Yes normocephalic and Yes atraumatic Ears: hearing grossly normal bilaterally Eyes General: appearance normal, both eyes and all related structures Neck Neck: Yes normal visual inspection and Yes trachea midline Chest Chest palpation & inspection: normal inspection of the chest Resp Effort & Inspection: normal respiratory effort and able to speak in complete sentences Cardio Rate: regular rate GI Inspection: Yes normal to inspection General: Yes no CVA tenderness Back/Spine/Pelvis Back: no CVA tenderness Skin General skin exam: no rashes or lesions noted Neuro General: patient oriented x3 Extrem General: Yes normal to inspection Psych Appearance: grossly normal and well kempt Mental Status: mental status grossly normal Speech and movement: Normal speech and movement present and Clear speech present Affect: normal affect Attitude: cooperative Thought process: Normal thought process present Thought content: Normal thought content present Insight: Fair insight present (Psych) Judgement: Fair judgement present (Psych) Results AMB Urinalysis, Automated UA Leukoctes 0 Svetlana/uL Last Edit by Luis Harrington on 12/03/23 08:07 UA Nitrite Last Edit by Luis Harrington on 12/03/23 08:07 UA Urobilinogen 0.2 mg/dL Last Edit by Ikariabelle Harrington on 12/03/23 08:07 UA Protein 0 mg/dL Last Edit by [employer] on 12/03/23 08:07 UA pH 6.0 Last Edit by [employer] on 12/03/23 08:07 UA Blood 0 Aroldo/uL Last Edit by [employer] on 12/03/23 08:07 UA Specific [place] 1.010 Last Edit by Ikariabelle Harrington on 12/03/23 08:07 UA Ketone Negative Last Edit by [employer] on 12/03/23 08:07 UA Bilirubin 0 mg/dL Last Edit by [employer] on 12/03/23 08:07 UA Glucose 1000 mg/dL Last Edit by [employer] on 12/03/23 08:07 Results Reviewed Results Reviewed: Laboratory Last Values Urine pH (Auto) 6.0 12/03/23 07:43 Specific [place] (Auto) 1.010 12/03/23 07:43 Urine Protein (Auto) 0 mg/dL 12/03/23 07:43 Glucose (UA)(Auto) 1000 mg/dL 12/03/23 07:43 Urine Ketones (Auto) Negative 12/03/23 07:43 Urine Blood (Auto) 0 Aroldo/uL 12/03/23 07:43 Urine Bilirubin (Auto) 0 mg/dL 12/03/23 07:43 Urine Urobilinogen (Auto) 0.2 mg/dL 12/03/23 07:43 Leukocyte Esterase (Auto) 0 Svetlana/uL 12/03/23 07:43 Assessment & Plan Assessment & Plan (1) Erectile dysfunction associated with type 2 diabetes mellitus: Code(s): E11.69 - Type 2 diabetes mellitus with other specified complication; N52.1 - Erectile dysfunction due to diseases classified elsewhere Category: Medical (2) Urinary urgency: Code(s): R39.15 - Urgency of urination Category: Medical Plan In office urinalysis results reviewed with the patient today; as noted above. Most recent CT results reviewed with the patient today; as noted above. Recent PSA results reviewed with the patient today; as noted above. We discussed at length importance of managing diabetes for improvement in urinary urgency as well as erectile dysfunction in overall health and well-being. Discussed at length penile pumps, constriction rings, and other managements for erectile dysfunction. Continue Cialis 5 mg daily. Will obtain PSA in 1 year. Follow-up in 1 year with lab to be completed prior and PVR at next office visit; or sooner with any issues, concerns, and or questions. Orders: Orders Prostate Specific Antigen 1 Year E11.69 - Type 2 diabetes mellitus with other specified complication, N52.1 - Erectile dysfunction due to diseases classified elsewhere, R39.15 - Urgency of urination AMB Urinalysis Automated Today Z13.9 - Encounter for screening, unspecified Medications: Refilled tadalafil (Cialis) [id number] [facility] [id number] Member [id number] 5 mg PO DAILY 90 days 90 tabs 3RF Patient Instructions: The patient had an opportunity to ask questions regarding the treatment plan. All questions were answered. Physical exam, labs, and imaging were discussed and reviewed in detail. As well as risks, benefits, and discussion of treatment choices. No major barriers to understanding were identified. The patient expressed understanding and agreement with the above treatment plan. The patient was made aware they should contact our office by phone for worsening of their current condition, the appearance of new symptoms, or with any questions or concerns. Compliance is encouraged with any medications and follow up testing that is ordered. It is a privilege to be allowed the opportunity to participate in? your urological care.? Again, if you have any questions or concerns If you have any questions or concerns please do not hesitate to contact me. The office is [phone]. This note is constructed using voice recognition software. While every effort has been made to ensure accuracy patrol officer errors may have been included. Yours sincerely, AARON Huston Coding Level of Care Code Est Pt Level 4 (42585) Diagnoses Erectile dysfunction associated with type 2 diabetes mellitus E11.69; N52.1 Urinary urgency R39.15 Time Spent (min) 30
== END 2023-12-03 08:29 | disposition home or self-care (01) ==
PROVIDERS: PCP Nurse Practitioner Family; Visit Provider Nurse Practitioner Family
DX: E11.69 Type 2 diabetes mellitus with other specified complication (principal); N52.1 Erectile dysfunction due to diseases classified elsewhere; R39.15 Urgency of urination; Z13.9 Encounter for screening, unspecified
CPT/HCPCS: 99214

== ENCOUNTER → 2023-12-03 07:30 | Outpatient (BNVA) | payer OTHER, SELFPAY | PROVIDERS: PCP Nurse Practitioner Family; Visit Provider Nurse Practitioner Family | DX: E11.69 Type 2 diabetes mellitus with other specified complication (principal); N52.1 Erectile dysfunction due to diseases classified elsewhere; R39.15 Urgency of urination; Z79.899 Other long term (current) drug therapy | CPT/HCPCS: 81003 ==

== ENCOUNTER 2023-12-28 08:07 | Outpatient (AMB) | payer OTHER, SELFPAY ==
[2023-12-28 08:11] VITALS: BP 130/70; PULSE 77; O2SAT 97; BMI 34.5
--- NOTE | 2023-12-28 08:11 | A.OFFPC_ITS ---
Vital Signs 12/28/23 08:11 Height 6 ft 3 in Weight 276 lb BMI 34.5 BP 130/70 Blood Pressure Location Rt brachial Position Sitting Pulse 77 Pulse Source Pulse Oximeter Pulse Oximetry (%) 97 Oxygen Delivery Method Room Air Intake Visit Reasons: 4 month f/u Intake Note: pt is here for 4 month follow up Allergies No Known Allergies Allergy (Verified 12/28/23 09:11) Medication List - Last Reconciled 12/28/23 by ROSALINO CarpenterP- alprazolam 0.5 mg PO DAILY PRN 30 days betamethasone dipropionate 0.05% 1 appl topical DAILY PRN blood-glucose sensor ([employer] Faizan 3 Sensor device) Test blood sugar 4 times per day cyclobenzaprine 10 mg PO TID PRN diazepam 2 mg PO ONCE PRN 1 day empagliflozin 25 mg PO QAM ibuprofen (Advil) 400 mg PO Q8H PRN lisinopril 2.5 mg PO DAILY NS magnesium oxide 400 mg PO DAILY metformin 1,000 mg PO BID 90 days oxymetazoline 0.05% (Afrin (oxymetazoline)) 2 sprays intranasal Q12H PRN 3 days sildenafil 50 mg PO DAILY PRN 12 days tadalafil (Cialis) 5 mg PO DAILY 90 days Tobacco use date assessed: 10/07/23 Dental Screening Dental Screen Date: 04/16/23 HPI 4 month f/u HPI Details Pt is a diabetic, on an JEANINE. A1C in office today is 6.7. Microalbumin is up to date. Denies polyuria, polydipsia, and neuropathy. Pt denies any signs and symptoms of hypoglycemia and does know how to correct it. Pt c/o BLE pain and severe cramping for many months. He reports that this occurs in his hamstrings but can move to anterior thighs. Pt has tried vitamin B complex and magnesium with no relief. Pt reports that the pain is severe and makes it difficult to walk. He does not have any bruising. Pt does experience some lower back pain, though he does not have radicular symptoms. Pt questions if this could be related to jardiance, will have pt stop this. Will order labs and EMG/nerve conduction testing. Will also refer to physiatry. 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 1. Little interest or pleasure in doing things: not at all 2. Feeling down, depressed, or hopeless: not at all 3. Trouble falling or staying asleep, or sleeping too much: nearly every day 4. Feeling tired or having little energy: not at all 5. Poor appetite or overeating: nearly every day 6. Feeling bad about yourself - or that you are a failure or have let yourself or your family down: not at all 7. Trouble concentrating on things, such as reading the newspaper or watching television: not at all 8. Moving or speaking so slowly that other people could have noticed. Or the opposite - being so fidgety or restless that you have been moving around a lot more than usual: not at all 9. Thoughts that you would be better off or of hurting yourself in some way: not at all Total score: 6 Depression Screening Interpretation: Negative Depression Screening Done: Yes 51107 - PHQ-9 Billing: Yes Source: Developed by Drs. Emmanuel Harrison, Tonya Sargent, Brett Wadsworth and colleagues, with an educational chicho from [employer] Thrive Questionnaire Date Thrive assessed: 10/06/23 I am a: Patient What is your living situation today?: I have a steady place to live Within the past 12 months, did the food you bought not last and you didn't have the money to get more?: I choose not to answer this question Within the past 12 months, did you worry whether your food would run out before you got money to buy more?: I choose not to answer this question Do you have trouble paying for medicines?: I choose not to answer this question Do you have trouble getting transportation to medical appointments?: I choose not to answer this question Do you have trouble paying your heating and electricity bill?: I choose not to answer this question Do you have trouble taking care of your child, family member or friend?: I choose not to answer this question Do you have trouble with day-to-day activities such as bathing, preparing meals, shopping, managing finances, etc.?: I choose not to answer this question Are you currently unemployed and looking for a job?: I choose not to answer this question Are you interested in more education?: I choose not to answer this question Please select the resources that you would like help with: None Currently or been in a relationship where the following occur: I choose not to answer THRIVE Score: 0 LEONEL-7 AMB Questionnaire LEONEL-7 Date LEONEL - 7 assessed: 04/16/23 Source: Developed by Drs. Emmanuel Harrison, Tonya Sargent, Brett Wadsworth and colleagues, with an educational chicho from [employer] Review of Systems Const Reports as per HPI Physical exam (Primary Care) Vital Signs: Last Vital Signs Pulse 77 12/28/23 08:11 BP 130/70 12/28/23 08:11 Pulse Ox 97 12/28/23 08:11 Oxygen Delivery Method Room Air 12/28/23 08:11 BMI result Body Mass Index 34.5 Tobacco/Smoking Status: Tobacco use Status Tobacco use date assessed 10/07/23 12/28/23 08:12 Patient Tobacco Use Status Former Tobacco user 12/28/23 08:12 Tobacco use type Cigarette 12/28/23 08:12 e-Cigarette/Vaping Use Never Used 12/28/23 08:12 PHQ-9: PHQ-9 Score PHQ-9: Total score 6 12/28/23 08:33 Depression Screening Interpretation: Negative Thrive Assessment: Date of Thrive Assessment Date Thrive assessed 10/06/23 12/28/23 08:12 Currently or been in a relationship where the following occur: I choose not to answer Const General: cooperative Nutritional Appearance: obese Orientation/consciousness: patient oriented x3 Resp Effort & Inspection: normal respiratory effort Auscultation: clear to auscultation bilaterally Cardio Rate: regular rate Rhythm: regular rhythm Heart sounds: S1 normal heart sound present and S2 normal heart sound present Neuro General: patient oriented x3 Extrem Other: BLE: no ecchymosis or erythema, severe tenderness with palpation of bilat mid hamstrings, + dorsali pedis pulses, bilat feet: + sensation with use of monofilament, feet intact Psych Appearance: grossly normal Mental Status: mental status grossly normal Speech and movement: Normal speech and movement present Affect: normal affect Attitude: cooperative Thought process: Normal thought process present Thought content: Normal thought content present Insight: Good insight present (Psych) Judgement: Good judgement present (Psych) Results AMB Hemoglobin A1c AMB Hemoglobin A1c 6.7 % Last Edit by Raphael Smith CMA on 12/28/23 08: 36 Results Reviewed Results Reviewed: Laboratory Last Values Hgb A1c (Clinic) 6.7 % (4.0-6.0) H 12/28/23 08:19 Coding Level of Care Code Est Pt Level 3 (38403) Diagnoses Leg cramps R25.2 Diabetes E11.9 Additional Codes PHQ-9 - 62270 - PHQ-9 Billing: Yes ([id number]) Assessment & Plan Assessment & Plan (1) Leg cramps: Code(s): R25.2 - Cramp and spasm Category: Medical Plan: Labs and EMG/nerve conduction testing ordered, referred to physiatry, labs (2) Diabetes: Code(s): E11.9 - Type 2 diabetes mellitus without complications Category: Medical Plan: currently controlled, A1c 6.7 today Plan The patient agreed to the use of a faculty i on call medical assistant for this encounter. Scribed for AARON Ellison by Dee Dave faculty i on call medical assistant, on 12/28/2023 at 08:40 EST. Orders: Orders NE nerve conduction velocity Today R25.2 - Cramp and spasm Comprehensive Met. Panel Today E11.9 - Type 2 diabetes mellitus without complications Vitamin B12 and Folate Today E11.9 - Type 2 diabetes mellitus without complications, R25.2 - Cramp and spasm Vitamin B6 Today E11.9 - Type 2 diabetes mellitus without complications, R25.2 - Cramp and spasm Tick-borne Disease Molecular Today R25.2 - Cramp and spasm AMB Hemoglobin A1c Today Z13.9 - Encounter for screening, unspecified Creatine Kinase Total Today R25.2 - Cramp and spasm NE electromyogram (EMG) Today R25.2 - Cramp and spasm Microalbumin, Random (w Creat) Today E11.9 - Type 2 diabetes mellitus without complications Complete Blood Count Auto Diff Today E11.9 - Type 2 diabetes mellitus without complications TSH reflex Free T4 Today E11.9 - Type 2 diabetes mellitus without complications Magnesium Today E11.9 - Type 2 diabetes mellitus without complications, R25.2 - Cramp and spasm Referrals Physiatry Referral R25.2 - Cramp and spasm Medications: Refilled cyclobenzaprine 10 mg PO TID PRN 14 tabs 0RF muscle spasm
== END 2023-12-28 09:00 | disposition home or self-care (01) ==
PROVIDERS: PCP Nurse Practitioner Family; Visit Provider Nurse Practitioner Family
DX: R25.2 Cramp and spasm (principal); E11.9 Type 2 diabetes mellitus without complications; Z13.9 Encounter for screening, unspecified

== ENCOUNTER 2023-12-28 08:07 | Outpatient (REF) | payer OTHER, SELFPAY ==
[2023-12-28 13:18] LABS: MANUAL DIFF FLAG NO
[2023-12-28 13:30] LABS: Basophils Percent Auto 0.5 % (0-2); Eosinophils Absolute Auto 0.3 X10*3/uL (0.0-0.4); Eosinophils Percent Auto 3.7 % (0-4); Hematocrit 51.6 % (42.0-52.0); Hemoglobin 16.6 g/dl (14.0-18.0); Imm Gran Abs Auto 0.02 X10*3/uL (0.00-0.03); Imm Gran Pct Auto 0.3 % (0.0-0.4); Lymphocytes Percent Auto 26.5 % (20-40); Mean Corpuscular HGB Conc 32.2 g/dl (31.0-36.0); Mean Corpuscular Hemoglobin 28.7 pg (27.0-33.0); Mean Corpuscular Volume 89.3 fL (80.0-98.0); Mean Platelet Volume 10.3 fL (9.4-12.4); Monocytes Absolute Auto 0.5 X10*3/uL (0.1-1.2); Monocytes Percent Auto 7.2 % (2-11); Neutrophils Absolute Auto 4.6 x10*3/uL (2.0-8.3); Neutrophils Percent Auto 61.8 % (45-73); Platelet Count 277 X10*3/uL (160-400); Red Blood Count 5.78 X10*6/uL (4.60-5.80); Red Cell Distribution Width 12.8 % (11.0-16.0); White Blood Count 7.4 X10*3/uL (4.8-10.8)
[2023-12-28 14:08] LABS: Creatinine Urine 80.61 mg/dL; Microalbumin Urine < 5.0 mg/L
[2023-12-28 14:17] LABS: Alanine Aminotransferase 32 U/L (0-40); Albumin Level 4.2 g/dL (3.5-5.0); Alkaline Phosphatase 105 U/L (39-117); Anion Gap 10 (12-20); Aspartate Amino Transferase 16 U/L (5-37); Bilirubin Total 0.6 mg/dL (0.0-1.0); Blood Urea Nitrogen 10 mg/dL (9-16); Calcium 9.3 mg/dL (8.4-10.2); Carbon Dioxide 27 mmol/L (22-29); Chloride 107 mmol/L (96-108); Estimated Glomerular Filt Rate > 60; Glucose Random 141 mg/dL (60-115); Magnesium 2.2 mg/dL (1.6-2.6); Potassium 4.9 mmol/L (3.3-5.1); Sodium 139 mmol/L (135-145); Total Protein 7.1 g/dL (6.5-8.0)
[2023-12-28 14:39] LABS: Folate 18.3 ng/mL (> or = 4.0); Vitamin B12 696 pg/mL (200-900)
[2023-12-30 00:04] LABS: A. Phagocytphilium DNA,RT-PCR NOT DETECTED (NOT DETECTED); Babesia Microti DNA, RT-PCR NOT DETECTED (NOT DETECTED); Borrelia Miyamotoi,DNA RT-PCR NOT DETECTED (NOT DETECTED); E.Chaffeensis DNA RT-PCR NOT DETECTED (NOT DETECTED); Lyme(Borrelia ssp)DNA RT-PCR NOT DETECTED (NOT DETECTED)
[2024-01-02 21:49] LABS: Vitamin B6 29.3 ng/mL (2.1-21.7)
== END 2023-12-28 08:08 | disposition home or self-care (01) ==
LOC: HO.HMGCLDS 08:07
PROVIDERS: PCP Nurse Practitioner Family; Visit Provider Nurse Practitioner Family
DX: Z13.9 Encounter for screening, unspecified (principal); E11.9 Type 2 diabetes mellitus without complications; R25.2 Cramp and spasm
CPT/HCPCS: 36415; 80053; 82043; 82550; 82570; 82607; 82746; 83036; 83735; 84207; 84443; 85025; 87468; 87469; 87478; 87484; 87798; 96127

== ENCOUNTER 2024-01-12 08:30 | Outpatient (REF) | payer OTHER, SELFPAY ==
--- NOTE | 2024-01-12 08:33 | EMG_ITS ---
FINDINGS: Bilateral tibial and peroneal motor studies were performed. Bilateral superficial peroneal, sural, and median lateral mixed plantar studies were performed. Tibial H reflexes were obtained and paraspinal muscles were tested with a needle. IMPRESSION: Mild to moderate, mostly sensory peripheral neuropathy affecting feet more than legs. MD DAVID Kathleen/NASRIN / [phone]
[2024-01-12 10:35] LABS: Iron 108 mcg/dL (45-160); Magnesium 1.9 mg/dL (1.6-2.6); Percent Iron Saturation 33 % (15-50); Total Iron Binding Capacity 323 mcg/dL (228-428); Unsaturated Iron Binding 215 ug/dL
[2024-01-12 10:40] LABS: Syphilis Screen Nonreactive (Nonreactive)
[2024-01-12 10:45] LABS: Prostate Specific Antigen Scr 1.81 ng/mL (<0.05-4.0)
[2024-01-12 10:52] LABS: Ferritin 133 ng/mL (20-250); Vitamin D 25-OH Total 32.2 ng/mL (>30)
[2024-01-12 11:03] LABS: Appearance Urine Clear; Color Urine Dark Yellow; Glucose Urine UA Negative (Negative); Leukocyte Esterase Urine Negative (Negative); Nitrite Urine Negative (Negative); PH 5.5 (5.0-9.0); Urine Blood Negative (Negative); Urine Ketones Trace mg/dL (Negative); Urine Protein Negative (Neg-Trace)
[2024-01-14 10:14] LABS: Lyme Abs Screen <0.90 index
[2024-01-14 18:29] LABS: Venous Lead <1.0 mcg/dL (<3.5)
[2024-01-14 19:08] LABS: A. Phagocytphilium DNA,RT-PCR NOT DETECTED (NOT DETECTED); Babesia Microti DNA, RT-PCR NOT DETECTED (NOT DETECTED); Borrelia Miyamotoi,DNA RT-PCR NOT DETECTED (NOT DETECTED); E.Chaffeensis DNA RT-PCR NOT DETECTED (NOT DETECTED); Lyme(Borrelia ssp)DNA RT-PCR NOT DETECTED (NOT DETECTED)
[2024-01-15 10:52] LABS: Arsenic, Blood <3 mcg/L (<23); Lead, Blood <1.0 mcg/dL (<3.5); Mercury, Blood <4 mcg/L (<=10)
[2024-01-15 12:44] LABS: Ceruloplasmin 21 mg/dL (14-30)
[2024-01-15 23:19] LABS: Zinc 72 mcg/dL (60-130)
== END 2024-01-12 08:31 | disposition home or self-care (01) ==
LOC: HO.NEURO 08:30
PROVIDERS: PCP Nurse Practitioner Family; Visit Provider Nurse Practitioner Family
DX: R25.2 Cramp and spasm (principal); G57.93 Unspecified mononeuropathy of bilateral lower limbs; E11.9 Type 2 diabetes mellitus without complications; Z12.5 Encounter for screening for malignant neoplasm of prostate
CPT/HCPCS: 36415; 81003; 82175; 82306; 82390; 82728; 83540; 83655; 83735; 83825; 84153; 84630; 86617; 86618; 86780; 87468; 87469; 87478; 87484; 87798; 95886; 95913

== ENCOUNTER 2024-01-19 07:46 | Outpatient (AMB) | payer OTHER, SELFPAY ==
--- NOTE | 2024-01-19 07:31 | MHC.OFFVIS ---
Intake Visit Reasons: Discuss test results Allergies No Known Allergies Allergy (Verified 12/28/23 09:11) Medication List - Last Reconciled 01/19/24 by Jose Alejandro Gillis [facility]- alprazolam 0.5 mg PO DAILY PRN 30 days betamethasone dipropionate 0.05% 1 appl topical DAILY PRN blood-glucose sensor ([employer]an 3 Sensor device) Test blood sugar 4 times per day cyclobenzaprine 10 mg PO TID PRN diazepam 2 mg PO ONCE PRN 1 day empagliflozin 25 mg PO QAM gabapentin 200 mg (2 x 100 mg) PO TID 30 days ibuprofen (Advil) 400 mg PO Q8H PRN lisinopril 2.5 mg PO DAILY NS magnesium oxide 400 mg PO DAILY metformin 1,000 mg PO BID 90 days oxymetazoline 0.05% (Afrin (oxymetazoline)) 2 sprays intranasal Q12H PRN 3 days sildenafil 50 mg PO DAILY PRN 12 days tadalafil (Cialis) 5 mg PO DAILY 90 days HPI HPI Discuss test results: Details: History of Present Illness The patient is a 53-year-old male presenting with chronic leg pain. The patient reports significant discomfort in the legs, characterized by aching, throbbing, and cramps in the hamstrings, which manifest more intensely upon exertion. He describes episodes of mild numbness and twitching in the right leg, extending from the hamstring to the foot, occasionally leading to spasms. He notes that the discomfort is relieved by bed rest but exacerbated by activities such as prolonged standing and walking. Historically, the patient has experienced lower back pain since age 17, which he distinguishes from the current leg issues. Recent nerve conduction studies revealed mild to moderate peripheral neuropathy, predominantly sensory, affecting the feet more than the legs. An X-ray of the lumbar spine, conducted two months prior, remains unread. Current interventions include healthcare translator and the use of medications such as gabapentin, ibuprofen, magnesium, with variable efficacy, though seems to help. His concerns about the impact of this condition on daily activities and social life are profound, as evidenced by his mobility limitations and lifestyle adjustments. He has an upcoming appt with physiatry next month. Still, awaiting XR results to assess need for MRI. NOTE: did have approx 2 good days last week, i thought it was gone , then the discomfort came back. Review of Systems - Musculoskeletal: Reports chronic leg pain, twitching, cramping, and spasms. - Neurological: Reports numbness in the right leg, especially in the thigh and hamstrings. - General: excrutiating pain intermittently. Plan - Peripheral Neuropathy: Continue gabapentin, increasing to 200 mg three times daily. Further assess nerve involvement with MRI pending lumbar X-ray review. - Lower Back Pain: Obtain and review lumbar spine X-ray results, then proceed with MRI of the lumbar spine if indicated. Continue chiropractic sessions. Assess benefit from physical therapy focusing on back and leg strengthening exercises. - Comprehensive ultrasound of bilateral lower extremities to evaluate arterial flow and rule out any circulatory involvement. - Ongoing assessment for possible underlying causes, including blood flow issues, given fluctuating symptoms. Patient was informed and verbally consented to the use of an ambient scribe for clinic note documentation during this visit. Discussion Notes During our discussion, we addressed the chronic nature of the patient's leg pain and the complexities involved in determining an exact cause. The possibility of nerve involvement was emphasized, supported by existing neuropathy findings. We considered increasing gabapentin dosage to address neuropathic pain more effectively. While awaiting results from the unread lumbar spine X-ray, we discussed proceeding with an MRI to clarify lumbar spine involvement, ensuring that all procedures remain approved by insurance due to their costs. I ordered an ultrasound to check for circulatory issues, despite the symptoms not typically indicating vascular problems, except for worsening pains with movement (claudication). We also discussed potential benefits and outcomes of continued healthcare translator and the inclusion of physical therapy. The patient is advised on the emotional toll of chronic pain and encouraged to maintain mobility within comfortable limits. Follow-up appointments are arranged to ensure timely evaluation of pending imaging and lab results. Patient Instructions - Continue gabapentin as prescribed, now 200 mg three times daily. - Obtain lumbar spine X-ray and follow up for review. MRI - Attend the scheduled ultrasound for lower extremity evaluation. - Maintain regular chiropractic visits as currently found beneficial. - Consider initiating physical therapy focused on the lower back and leg support. - Monitor symptoms and record any intensity changes; report significant alterations immediately. - Adhere to limitations on activities that exacerbate pain, and balance daily resting with mobility exercises. - Follow up as instructed for assessment results and further care guidance. -follow up with physiatry. 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 Current occupational exposures/hazards: No Cognitive needs: No Hearing needs: No Vision needs: No Telehealth Telehealth Telehealth Platform: [employer] Location of provider rendering services: practice address Location of patient: address on file Patient Identification confirmed using: Name, : Yes Telehealth method: video Patient verbally consented to billing insurance company: Yes Patient informed of any privacy concerns related to visit: Yes Minutes spent on Phone/Video with Pt.: 30 Assessment & Plan Assessment & Plan (1) Neuropathic pain, leg, bilateral: Code(s): G57.93 - Unspecified mononeuropathy of bilateral lower limbs Category: Medical (2) Leg cramps: Code(s): R25.2 - Cramp and spasm Category: Medical Plan . Orders: Orders US arterial duplex LE BI Today R25.2 - Cramp and spasm Medications: Changed From gabapentin day 1: one cap. Day 2: 1 cap bid. day 3 and thereafter: one cap TID 100 mg PO TID 30 days 90 caps 0RF To gabapentin 200 mg (2 x 100 mg) PO TID 30 days 180 caps 2RF Coding Level of Care Code Tele Est Pt Level 4 (93733) Diagnoses Neuropathic pain, leg, bilateral G57.93 Leg cramps R25.2
--- OUTSIDE RECORDS SUMMARY | 2024-01-20 18:38 | XMS_ITS ---
Author Name [facility] Organization Unknown Results Test Name/Text Value Interpretation Date Range Source B burgdor IgG+IgM Ser Ql Negative Normal [id number] - [facility] BKR REFLEX URINE CULTURE See Comment Normal [id number] [facility] Calcium SerPl-mCnc 8.4mg/dL Below low normal [id number] 8 .5 - 10.1 [facility] BUN SerPl-mCnc 16mg/dL Normal [id number] 7 - 18 [facility] Anion Gap3 SerPl-sCnc 7mmol/L Normal [id number] 5 - 15 [facility] Creat SerPl-mCnc 0.99mg/dL Normal [id number] 0.7 - 1.3 [facility] HCO3 SerPl-sCnc 27mmol/L Normal [id number] 21 - 32 [facility] Chloride SerPl-sCnc 106mmol/L Normal [id number] 98 - 10 7 [facility] GFR/BSA.pred SerPlBld [id number]-[id number] 60mL/min/1.73m2 Normal [id number] - [facility] Potassium SerPl-sCnc 3.7mmol/L Normal [id number] 3.5 - 5.1 [facility] Glucose SerPl-mCnc 164mg/dL Above high normal [id number] 65 - 110 [facility] Sodium SerPl-sCnc 140mmol/L Normal [id number] 136 - 145 [facility] Monocytes # Bld Auto 0.69i4376/uL Normal [id number] 0 - 1 [facility] BKR WAM BASOPHIL ABSOLUTE COUNT. 0.64n3337/uL Normal [id number] 0 - 1 [facility] nRBC/100 WBC Bld Auto-Rto 0% Normal [id number] 0 - 1 [facility] Eosinophil # Bld Auto 0.28r3856/uL Normal [id number] 0 - 1 [facility] MCHC RBC Auto-mCnc 33.9g/dL Normal [id number] 31 - 36 [facility] Monocytes/leuk NFr Bld Auto 7.5% Normal [id number] 4 - 12 [facility] WBC # Bld Auto 10.0z7225/uL Normal [id number] 4 - 11 [facility] Hct VFr Bld Auto 43.1% Normal [id number] 38.5 - 50 [facility] RDW RBC Auto-Rto 12.7% Normal [id number] 11 - 15 [facility] PMV Bld Auto 10.4fL Normal [id number] 8 - 12 [facility] Eosinophil/leuk NFr Bld Auto 2.6% Normal [id number] 0 - 5 [facility] MCH RBC Qn Auto 29.7pg Normal [id number] 27 - 33 [facility] Basophils/leuk NFr Bld Auto 0.5% Normal [id number] 0 - 1.4 [facility] Lymphocytes # Bld Auto 2.80i4111/uL Normal [id number] 0.6 - 3.7 [facility] RBC # Bld Auto 4.91M/uL Normal [id number] 4 - 6 [facility] Neutrophils/leuk NFr Bld Auto 64.4% Normal [id number] 39 - 72 [facility] Imm Granulocytes # Bld Auto 0.80a3247/uL Normal [id number] 0 - 0.3 [facility] BKR WAM ABSOLUTE NEUTROPHIL COUNT. 7.63g6249/uL Normal [id number] 2 - 7.6 [facility] Platelet # Bld Auto 621a8627/uL Normal [id number] 150 - 420 [facility] MCV RBC Auto 87.8fL Normal [id number] 80 - 100 [facility] Lymphocytes/leuk NFr Bld Auto 24.7% Normal [id number] 17 - 50 [facility] Imm Granulocytes/leuk NFr Bld Auto 0.3% Normal [id number] 0 - 1 [facility] Hgb Bld-mCnc 14.6g/dL Normal [id number] 13.2 - 17.1 [facility] BKR BACTERIA, UA Rare Normal [id number] - [facility] BKR WBC/HPF INSTRUMENT 3/HPF Normal [id number] 0 - 5 [facility] BKR URINE SQUAMOUS EPITHELIAL CELLS, UA (NUMERIC) 1/HPF Normal [id number] 0 - 5 [facility] BKR RBC/HPF INSTRUMENT 43/HPF Above high normal [id number] 0 - 2 [facility] Glucose Ur Strip.auto-mCnc 4+ Abnormal [id number] - [facility] WBC # Ur Strip Negative Normal [id number] - [facility] Hgb Ur Ql Strip.auto 3+ Abnormal [id number] - [facility] Clarity Ur Refract.auto Clear Normal [id number] - [facility] Bilirub Ur Ql Strip.auto Negative Normal [id number] - [facility] Nitrite Ur Ql Strip.auto Negative Normal [id number] - [facility] Prot Ur Strip.auto-mCnc Negative Normal [id number] - [facility] Color Ur Auto Yellow Normal [id number] - [facility] Ketones Ur Strip.auto-mCnc Negative Normal [id number] - [facility] Urobilinogen Ur Strip-mCnc 2mg/dL Normal [id number] - [facility] Sp Gr Ur Refract.auto 1.019 Normal [id number] 1.005 - 1.03 [facility] pH Ur Strip.auto 6 Normal [id number] 5.5 - 7.5 [facility]
== END 2024-01-19 13:40 | disposition home or self-care (01) ==
LOC: HO.HMCC 07:46
PROVIDERS: PCP Nurse Practitioner Family; Visit Provider Nurse Practitioner Family
DX: G57.93 Unspecified mononeuropathy of bilateral lower limbs (principal); R25.2 Cramp and spasm

== ENCOUNTER → 2024-01-19 07:46 | Outpatient (BNVA) | payer OTHER, SELFPAY | PROVIDERS: PCP Nurse Practitioner Family; Visit Provider Nurse Practitioner Family | DX: R25.2 Cramp and spasm (principal); G57.93 Unspecified mononeuropathy of bilateral lower limbs ==

== ENCOUNTER 2024-01-25 15:47 | Emergency (ER) | payer OTHER, SELFPAY ==
[2024-01-25 15:55] VITALS: BP 145/75; PULSE 77; O2SAT 99
[2024-01-25 16:07] VITALS: BP 146/75; PULSE 73; RESP 16; TEMP 36.4; O2SAT 99; BMI 34.4
--- NOTE | 2024-01-25 16:21 | ED_ITS ---
HPI - Back Pain/Injury General Chief Complaint: Back Pain/Injury Stated Complaint: back pain, nerve pain -ems Time Seen by Provider: 01/25/24 16:17 Source: patient Mode of arrival: ambulatory Limitations: no limitations History of Present Illness ED Provider: HPI Narrative: Patient with chronic low back pain for last 2 months pain is getting worse patient used to have low back pain for long time but for last 2 months pain is getting worse no recent injury patient has seen by PCP and had a CT scan and x- rays done in the past which showed degenerative changes at L3-L4 L5 no bladder or bowel involvement patient is taking gabapentin and ibuprofen for pain Related Data Home Medications ?Medication ?Instructions ?Recorded ?Confirmed ibuprofen 200 mg tablet (Advil) 400 mg PO Q8H PRN 10/01/22 01/19/24 magnesium oxide 400 mg PO DAILY 11/10/23 01/19/24 Previous Rx's ?Medication ?Instructions ?Recorded alprazolam 0.5 mg tablet 0.5 mg PO DAILY PRN anxiety 30 09/30/21 days #30 tabs sildenafil 50 mg tablet 50 mg PO DAILY PRN sexual activity 09/30/21 12 days #12 tabs betamethasone dipropionate 0.05 % 1 appl topical DAILY PRN skin 01/09/22 topical cream irritation #45 grams oxymetazoline 0.05 % nasal spray 2 spray intranasal Q12H PRN nasal 05/25/23 (Afrin (oxymetazoline)) congestion 3 days #22 mL empagliflozin 25 mg tablet 25 mg PO QAM #90 tabs 08/18/23 blood-glucose sensor (FreeStyle #6 ea 08/31/23 Faizan 3 Sensor device) lisinopril 2.5 mg tablet 2.5 mg PO DAILY #90 tabs 10/05/23 diazepam 2 mg tablet 2 mg PO ONCE PRN anxiety 1 day #2 10/19/23 tabs tadalafil 5 mg tablet (Cialis) 5 mg PO DAILY 90 days #90 tabs 12/03/23 cyclobenzaprine 10 mg tablet 10 mg PO TID PRN muscle spasm #14 12/28/23 tabs metformin 1,000 mg tablet 1,000 mg PO BID 90 days #180 tabs 01/01/24 gabapentin 100 mg capsule 200 mg (2 x 100 mg) PO TID 30 days 01/19/24 #180 caps morphine 15 mg immediate release 15 mg PO Q8H PRN pain #15 tabs 01/25/24 tablet Allergies Allergy/AdvReac Type Severity Reaction Status Date / Time No Known Allergies Allergy Verified 01/25/24 16:13 Review of Systems Review of Systems: Yes all other systems are reviewed and are negative [facility] Past Medical History Medical History Cough Chills Diabetes Erectile dysfunction Surgical History Hx of colonoscopy Family History Family History Sister Mental health disorder Sister Mental health disorder Mother Mental health disorder Social History Social History Housing: House Comment: medicated Patient Tobacco Use Status: Former Tobacco user Tobacco use type: Cigarette Smoked in Last 30 Days: No e-Cigarette/Vaping Use: Never Used Second Hand Smoke Exposure: No Use of substances other than those prescribed or required for medical reasons: No Advance Directives: No Advance Directives Information Provided: No Do you have a plan to hurt others: No Plan service: No Current occupational status: employed 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 Oriented X3. No acute distress. ENT: Pharynx normal. Oral Mucosa moist Neck: Normal inspection. Neck supple. CVS: Normal heart rate and rhythm. Pulses normal. Respiratory: No respiratory distress. Equal air entry bilateral, no wheezing/rales/rhonchi Abdomen: Soft and nontender. Bowel sounds are present, no mass palpable, no CVA tenderness Skin: Skin warm and dry. Normal skin color. Normal skin turgor. Extremities: No lower extremity edema. No calf tenderness back: Diffuse tenderness lower lumbar paraspinal spasm SLR positive bilaterally sacral sensation intact Neuro: Oriented X 3. No motor deficit. No sensory deficit.No cerebellar signs , cranial nerves II-XII intact Medications Administered Discontinued Medications Generic Name Dose Route Start Last Admin Trade Name Freq PRN Reason Stop Dose Admin Morphine Sulfate 15 mg 01/25/24 16:39 01/25/24 16:46 Morphine Sulfate Immed Release 15 Mg Tablet PO 01/25/24 16:40 15 mg ONCE ONE Administration Medical Decision Making Medical Decision Making [facility] Narrative: Patient has chronic low back pain previous and CT scan showed degenerative arthritis patient responded to pain ER went to bathroom already taking gabapentin and ibuprofen discharge patient home advised to follow with PCP for further management no signs of cauda equina no bladder bowel involved Discharge Plan Discharge Clinical Impression: Lumbar radiculopathy Patient Disposition: Home, Self-Care Instructions: Lumbar Radiculopathy (ED) Additional Instructions: Rest at home Morphine for severe pain Ibuprofen during daytime for pain Follow with your PCP for further management including MRI and then follow with the pain clinic Prescriptions: New morphine 15 mg tablet 15 mg PO Q8H PRN (Reason: pain) Qty: 15 0RF Rx Instructions: Partial Fill upon patient request. No Action (DME) [employer] Faizan 3 Sensor Device See Rx Instructions .Route Qty: 6 1RF Rx Instructions: Test blood sugar 4 times per day lisinopril 2.5 mg tablet 2.5 mg PO DAILY Qty: 90 1RF metformin 1,000 mg tablet 1,000 mg PO BID 90 Days Qty: 180 1RF ibuprofen [Advil] 200 mg tablet 400 mg PO Q8H PRN betamethasone dipropionate 0.05 % cream 1 appl topical DAILY PRN (Reason: skin irritation) Qty: 45 1RF empagliflozin 25 mg tablet 25 mg PO QAM Qty: 90 1RF oxymetazoline [Afrin (oxymetazoline)] 0.05 % spray,non-aerosol 2 spray intranasal Q12H PRN (Reason: nasal congestion) 3 Days Qty: 22 0RF sildenafil 50 mg tablet 50 mg PO DAILY PRN (Reason: sexual activity) 12 Days Qty: 12 0RF Rx Instructions: administer 30 minutes to 4 hours before activity alprazolam 0.5 mg tablet 0.5 mg PO DAILY PRN (Reason: anxiety) 30 Days Qty: 30 0RF diazepam 2 mg tablet 2 mg PO ONCE PRN (Reason: anxiety) 1 Days Qty: 2 0RF Rx Instructions: Take medication after arrival at office tadalafil [Cialis] 5 mg tablet 5 mg PO DAILY 90 Days Qty: 90 3RF Rx Instructions: [id number] cyclobenzaprine 10 mg tablet 10 mg PO TID PRN (Reason: muscle spasm) Qty: 14 0RF magnesium oxide 400 mg magnesium tablet 400 mg PO DAILY gabapentin 100 mg capsule 200 mg PO TID 30 Days Qty: 180 2RF Print Language: Kazakh
[2024-01-25] MEDS: Morphine Sulfate Immed Release 15 MG TABLET PO (16:46)
[2024-01-25 18:53] VITALS: BP 159/81; PULSE 66; RESP 18; TEMP 36.7; O2SAT 97
== END 2024-01-25 18:54 | disposition home or self-care (01) ==
PROVIDERS: Emergency Provider Internal Medicine; PCP Nurse Practitioner Family
DX: M54.16 Radiculopathy, lumbar region (principal); M54.50 Low back pain, unspecified
CPT/HCPCS: 99283; 99284

== ENCOUNTER 2024-01-29 12:04 | Outpatient (REF) | payer OTHER, SELFPAY ==
--- NOTE | ~2024-01-29 | MR_ITS ---
EXAMINATION: MR LUMBAR SPINE WITHOUT CONTRAST CLINICAL INFORMATION: Unspecified mono neuropathy of bilateral lower limbs COMPARISON: None available. TECHNIQUE: MRI of the lumbar spine was obtained using routine sequences without contrast. FINDINGS: There are 5 nonrib-bearing lumbar-type vertebrae. Mild levocurvature of the lumbar spine. Normal alignment. No acute bone marrow abnormality. The vertebral body heights are preserved. Multilevel disc desiccation with mild to moderate disc height loss at L4-5 and L5-S1. Multilevel endplate osteophytosis. The visualized spinal cord is normal in caliber. No abnormal cord signal. The conus medullaris terminates at L1. 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 T12-L1: No significant spinal canal or neural foraminal narrowing. L1-2: Shallow disc bulge and bilateral facet arthrosis. No significant spinal canal or neural foraminal narrowing. L2-3: Diffuse disc bulge, ligamentum flavum hypertrophy, and bilateral facet arthrosis. Mild spinal canal stenosis. Mild right neural foraminal narrowing. L3-4: Shallow disc bulge, ligamentum flavum hypertrophy, and bilateral facet arthrosis. Mild to moderate spinal canal stenosis. Mild right greater than left neural foraminal narrowing. L4-5: Diffuse disc bulge with superimposed annular fissure. Ligamentum flavum hypertrophy and bilateral facet arthrosis. Mild spinal canal stenosis. Mild right greater than left neural foraminal narrowing with the disc abutting the exiting L4 nerve roots bilaterally. L5-S1: Shallow disc bulge and bilateral facet arthrosis. Moderate left neural foraminal narrowing. No significant spinal canal stenosis. The paravertebral soft tissues are unremarkable. Partially imaged bilateral pararenal cysts. MR/MR lumbar spine wo con IMPRESSION: Multilevel lumbar spondylosis superimposed on congenitally short pedicles resulting in diffuse lumbar spinal canal stenosis, most notable at L2-3 and L3-4. Multilevel neural foraminal narrowing is worst and moderate on the left at L5-S1. Electronically signed by: Nubia Mckinney MD 01/29/2024 02:39 PM [facility]
--- NOTE | ~2024-01-29 | XR_ITS ---
EXAMINATION: XR ORBITS, 3 VIEWS CLINICAL INFORMATION: Pre-MRI screening COMPARISON: None available. TECHNIQUE: 3 views of the orbits FINDINGS: No radiopaque foreign objects noted adjacent to the orbits. Radiopaque dental hardware noted. Osseous structures are intact. Soft tissues are unremarkable. XR/XR pre mri screening IMPRESSION: 1. No radiopaque foreign objects noted adjacent to the orbits. 2. Radiopaque dental hardware noted. Electronically signed by: Eduardo Hernández MD 01/29/2024 01:06 PM [facility]
== END 2024-01-29 12:05 | disposition home or self-care (01) ==
LOC: HO.MRI 12:04
PROVIDERS: PCP Nurse Practitioner Family; Visit Provider Nurse Practitioner Family
DX: G57.93 Unspecified mononeuropathy of bilateral lower limbs (principal); R93.7 Abnormal findings on diagnostic imaging of other parts of musculoskeletal system
CPT/HCPCS: 72148

== ENCOUNTER 2024-02-05 09:27 | Outpatient (AMB) | payer OTHER, SELFPAY ==
--- NOTE | 2024-02-05 09:30 | HO.SPINEOV ---
Vital Signs 02/05/24 09:38 Height 6 ft 3 in Weight 270 lb BMI 33.7 Intake Visit Reasons: lumbar stenosis Intake Note: Mr. Bustamante is here today c/o numbness and tingling of both legs. [employer] Swe[employer] Operator Required: No Allergies No Known Allergies Allergy (Verified 02/05/24 09:39) Physical Exam Vital Signs: BMI result Body Mass Index 33.7 Assessment & Plan Assessment & Plan (1) Neuropathic pain, leg, bilateral: Code(s): G57.93 - Unspecified mononeuropathy of bilateral lower limbs Category: Medical Plan Dear Carlos, Thank you for referring Mr Bustamante to our office today. He is a very nice 53-year-old gentleman presents to the office today for evaluation of an acute onset radiculopathy of his lower extremities that started sometime in October. He does not recall a specific day when the symptoms became intense, but rather slowly of over the course of maybe a few weeks it went from being something like cramping pain going down the back of his legs. He has had something similar in the past but this was much more intense. Over the course of the last few months though it is continent to the point now where he can barely stand up and move at all because his legs are constantly cramping, at time shaking and in pain. His legs would be numb as well. He is hypersensitive to any degree of touch or manipulation. The pain can be aggravated with activity but he also feels it when he is at rest. Lying down seems to be the best position but the symptoms are also present at night. He has had some feelings of urgency when urinating but no overt incontinence. He underwent a nerve conduction from the knees down and this showed test and this showed evidence of sensory neuropathy. He has been trialed on a number of different medications including gabapentin which seems to help the most. At 1st when he was on that it was almost like a miracle, but the affect is somewhat blunted now. He went up on the dose a bit and that seems to be better now but he is still in tremendous amounts of pain. He has also been using morphine sparingly. He has also been taking magnesium which he has used in the past to help with cramping in his legs. He comes in today with an MRI showing degenerative disc disease and stenosis of the lumbar spine. PMH: Is a diabetic, he tells me that his A1c is generally pretty well controlled, the last year so he has lost some weight and his blood sugars have been very well controlled. He had a history of Lyme disease last year, he had a tick in the classic rash and I had to undergo 2 subsequent doxycycline courses due to persistent symptoms of not only pain and aches but also neurological symptoms like difficulty talking and tingling of his extremities. It was a rough course but it did seem to settle down after his 2nd round of doxycycline. History of hypertension. History of kidney stones, anxiety, epicondylitis. Social hx: He has not smoke, drink use any recreational drugs Medications: Metformin, morphine, magnesium, alprazolam, gabapentin, vitamin-B Allergies: None Physical exam: Awake alert oriented, he is a very uncomfortable just trying to stand up out of a chair, he walks down the hallway and he appears very uncomfortable she is putting weight on his feet. I helped him take off his boots, and just manipulating his feet or his legs trying to get his shoes off he appeared very uncomfortable. Upper extremity strength is full, lower extremity strength I was unable to test accurately because the amount of pain he was in with manipulation and touch. Distal lower extremity strength appeared to be normal. Slightly brisk reflexes in the right foot with 1 beat of clonus. Otherwise normal reflexes if not slightly diminished in the patella and Achilles on the left. Upper extremity reflexes were normal. No Rae's sign. Imaging review: There is a lumbar MRI done here at [facility] showing [id number] degenerative disc disease, there is stenosis at multiple areas on the imaging, but no evidence of overt nerve compression, he has a congenitally narrow spinal canal but there is no areas that show severe stenosis. Impression: 53-year-old male, presents with a acute to subacute radiculitis, possible polyneuropathy or peripheral neuropathy in his lower extremities that started about 3 months ago and has been slowly escalating to the point now where he is in constant daily pain in multiple distributions down his legs including the front of his legs, calves, back of his legs, feet. He has also been getting some bladder irritation and urinary urgency. His exam demonstrates he is hypersensitive to any degree of touch her manipulation of his legs and very uncomfortable when standing on his feet. He does have 1 beat of clonus in his right ankle. Upper extremity examination is normal. I reviewed his lumbar MRI and it does not show a significant amount of compression of any of the nerves in the lumbar spine. His story is not typical of lumbar stenosis either which is usually a fairly classically slowly developing pain that is only present when standing and moving. This gentleman has pain when he is standing, moving, sitting and even at times when he is lying down. Even just trying to sit in the office on the examining table he was so uncomfortable he had to constantly change positions. My suspicion based on his EMG report is that he has some kind of neuropathy, but the EMG was only done of the distal nerves of the lower extremities. I think he should see Neurology for thorough evaluation and workup to exclude neuropathy, polyneuropathy. I wonder if it might be somehow related to his previous diagnosis of Lyme disease? I will get a thoracic MRI because of the clonus in his right ankle to exclude thoracic myelitis which can also cause intense bilateral leg pain. I can call him with the results of the MRI. I will review his lumbar MRI with Dr. Villa as well and see if he has any other thoughts. Thank you for allowing us to care for your patient. The total time spent with this visit with this patient was 65 minutes reviewing history, physical exam, lumbar imaging review, and implementation of treatment plan or further diagnostic testing Breezy Villa MD,PhD [facility] Orders: Orders MR thoracic spine wo con Today G57.93 - Unspecified mononeuropathy of bilateral lower limbs Referrals Neurology Referral G57.93 - Unspecified mononeuropathy of bilateral lower limbs Coding Level of Care Code New Pt Level 5 (27756) Diagnoses Neuropathic pain, leg, bilateral G57.93
[2024-02-05 09:38] VITALS: BMI 33.7
== END 2024-02-05 10:59 | disposition home or self-care (01) ==
PROVIDERS: PCP Nurse Practitioner Family; Referring Provider Nurse Practitioner Family; Visit Provider Physician Assistant
DX: G57.93 Unspecified mononeuropathy of bilateral lower limbs (principal)
CPT/HCPCS: 99205

== ENCOUNTER → 2024-02-05 09:27 | Outpatient (BNVA) | payer OTHER, SELFPAY | PROVIDERS: PCP Nurse Practitioner Family; Referring Provider Nurse Practitioner Family; Visit Provider Physician Assistant ==

== ENCOUNTER 2024-02-16 08:04 | Outpatient (AMB) | payer OTHER, SELFPAY ==
--- NOTE | 2024-02-16 07:56 | A.OFFVIS_ITS ---
Intake Visit Reasons: discuss issues with rustam Allergies No Known Allergies Allergy (Verified 02/05/24 09:39) Medication List - Last Reconciled 02/16/24 by Rustam Gillis [facility]- alprazolam 0.5 mg PO DAILY PRN 30 days betamethasone dipropionate 0.05% 1 appl topical DAILY PRN blood-glucose sensor (FreeStyle Faizan 3 Sensor device) Test blood sugar 4 times per day cyclobenzaprine 10 mg PO TID PRN diazepam 2 mg PO ONCE PRN 1 day empagliflozin 25 mg PO QAM gabapentin 600 mg (2 x 300 mg) PO TID 30 days ibuprofen (Advil) 400 mg PO Q8H PRN lisinopril 2.5 mg PO DAILY NS magnesium oxide 400 mg PO DAILY metformin 1,000 mg PO BID 90 days morphine 15 mg PO Q8H PRN oxymetazoline 0.05% (Afrin (oxymetazoline)) 2 sprays intranasal Q12H PRN 3 days sildenafil 50 mg PO DAILY PRN 12 days tadalafil (Cialis) 5 mg PO DAILY 90 days HPI HPI discuss issues with rustam: Details: History of Present Illness The patient is a 53-year-old male presenting with severe bilateral extremity pain. The condition began with the onset of multilevel lumbar spondylosis superimposed on congenital short pedicles, accompanied by diffuse lumbar spinal canal stenosis. The stenosis is most notable at the L2-3 and L3-4 levels, with additional findings of multilevel neuroforaminal narrowing, which is moderate on the left at L5-S1. A prior MRI of the lumbar spine confirmed these findings. The patient reports severe pain that becomes debilitating within hours of waking, often necessitating the use of crutches for mobility. Pain relief is minimal and temporarily achieved following increased dosages of gabapentin. Neurological causes are suspected, given the partial response to gabapentin and prior negative test results for Lyme disease, vitamin B12 deficiency, CPK, syphilis, thyroid dysfunction, and heavy metals. The patient has an upcoming thoracic MRI scheduled to further investigate. Past consultations with neurologists and spine specialists have suggested further evaluations. The patient is also seeking opinions from specialists at [facility]. He also has a cuffer appt next week. Review of Systems - Musculoskeletal: Reports severe bilateral extremity pain -denies any cp, sob, n/v, blurred vision, MAK Plan - Continue gabapentin with adjusted dosing as per the relations specialist's recommendation. - Perform an MRI of the thoracic spine to evaluate further causes of pain. - Refer to a neurologist for comprehensive evaluation and management. - Seek an additional opinion from [facility] as per patient?s consultation. -consultation by physiatry Patient was informed and verbally consented to the use of an ambient scribe for clinic note documentation during this visit. Discussion Notes I discussed the patient's current condition, which includes lumbar spine issues contributing to severe bilateral extremity pain. We agreed on the necessity of increasing the gabapentin dose, which has been partially effective in alleviating symptoms, indicating a potential nerve-related etiology. I emphasized the importance of the upcoming thoracic MRI to explore any additional structural causes. Furthermore, I discussed the relevance of consulting with a neurologist to ensure a comprehensive assessment. The patient willingly engaged in discussions regarding obtaining another medical opinion from the team at [facility] for further insights and validation of the current treatment strategy. Patient Instructions - Continue taking gabapentin as instructed. - Attend the scheduled MRI of the thoracic spine. - Follow up with a neurologist as planned. - Report any changes in symptoms or concerns via the patient portal. - Attend the consultation at [facility] and update about the outcome. [facility] Medical History (Updated 02/01/24 @ 12:31 by Rustam Gillis [facility]) Neuropathic pain, leg, bilateral Cough Chills Diabetes Erectile dysfunction Surgical History Hx of colonoscopy Family History Sister Mental health disorder Sister Mental health disorder Mother Mental health disorder Social History Housing: House Comment: medicated Patient Tobacco Use Status: Former Tobacco user Tobacco use type: Cigarette e-Cigarette/Vaping Use: Never Used Second Hand Smoke Exposure: No service: No Current occupational status: employed 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 Current occupational exposures/hazards: No Cognitive needs: No Hearing needs: No Vision needs: No Telehealth Telehealth [facility] Location of provider rendering services: practice address Location of patient: address on file Patient Identification confirmed using: Name, : Yes Telehealth method: video Patient verbally consented to treatment: Yes Patient verbally consented to billing insurance company: Yes Patient informed of any privacy concerns related to visit: Yes Minutes spent on Phone/Video with Pt.: 20 Assessment & Plan Assessment & Plan (1) Lumbar stenosis: Code(s): M48.061 - Spinal stenosis, lumbar region without neurogenic claudication Category: Medical (2) Neuropathic pain, leg, bilateral: Code(s): G57.93 - Unspecified mononeuropathy of bilateral lower limbs Category: Medical Plan . Orders: Orders Immunofixation Pnl, Serum Today G57.93 - Unspecified mononeuropathy of bilateral lower limbs Protein Electrophoresis, Serum Today G57.93 - Unspecified mononeuropathy of bilateral lower limbs Medications: Changed From gabapentin 400 mg PO TID 30 days 90 caps 2RF To gabapentin 600 mg (2 x 300 mg) PO TID 180 caps 2RF 30 days From diazepam Take medication after arrival at office 2 mg PO ONCE 1 day PRN 2 tabs 0RF anxiety R45.89 - Other symptoms and signs involving emotional state To diazepam Take medication 1 hr before MRI 5 mg PO ONCE PRN 1 tab 0RF anxiety 1 day R45.89 - Other symptoms and signs involving emotional state Coding Level of Care Code Tele Est Pt Level 4 (17017) Diagnoses Lumbar stenosis M48.061 Neuropathic pain, leg, bilateral G57.93
== END 2024-02-16 09:04 | disposition home or self-care (01) ==
LOC: HO.HMCC 08:04
PROVIDERS: PCP Nurse Practitioner Family; Visit Provider Nurse Practitioner Family
DX: M48.061 Spinal stenosis, lumbar region without neurogenic claudication (principal); G57.93 Unspecified mononeuropathy of bilateral lower limbs

== ENCOUNTER 2024-02-17 07:57 | Outpatient (REF) | payer OTHER, SELFPAY ==
--- NOTE | ~2024-02-17 | MR_ITS ---
EXAMINATION: MR THORACIC SPINE WITHOUT CONTRAST CLINICAL INFORMATION: Unspecified mononeuropathy bilateral lower limbs. COMPARISON: None available. TECHNIQUE: MRI of the thoracic spine was obtained using routine sequences without contrast. FINDINGS: Limited by patient's breathing motion artifact. No bone marrow STIR signal abnormality. Multilevel disc desiccation. Multilevel marginal osteophyte formation more conspicuous from T5 to T8. Normal alignment. C6-7: There is a broad-based central right subarticular and foraminal disc herniation resulting in ventral deformity of the spinal cord without gross cord signal abnormality. At T1-2: No disc herniation. No neuroforamina stenosis. T2-3: No disc herniation. No neuroforamina stenosis. T3-4: Right subarticular disc herniation resulting in ventral deformity of spinal cord. No cord signal abnormality. No gross neuroforamina stenosis. T4-5: Right subarticular disc protrusion without cord compression. No cord signal abnormality. No neuroforamina stenosis. T5-6: Right subarticular disc protrusion. No cord compression. No cord signal abnormality. No neuroforamina stenosis. T6-7: No disc herniation. No gross neuroforamina stenosis. T7-8: No disc herniation. No gross neuroforamina stenosis. T8-9: Central disc protrusion without cord compression. No cord signal abnormality. No neuroforamina stenosis. T9-10: No disc herniation. No gross neuroforamina stenosis. T10-11: No disc herniation. No neuroforamina stenosis. T11-12: Broad-based disc bulging. No cord compression. No neuroforamina stenosis. Facet joint hypertrophy as well as ligamentum flavum. T12-L1: No disc herniation. No neuroforamina stenosis. Conus medullaris ends at pedicle of L1 with normal signal. No prevertebral compartment hematoma, mass or fluid collection. Descending thoracic aorta demonstrates normal caliber and flow-void signal. MR/MR thoracic spine wo con IMPRESSION: Central right subarticular and foraminal broad-based disc herniation C6-7 resulting in ventral deformity of the spinal cord without cord edema and or myelopathy and right neuroforamina narrowing. Multilevel thoracic spondylosis without cord compression, edema and or myelopathy. Electronically signed by: Richard Serra MD 02/17/2024 11:20 AM EST
== END 2024-02-17 07:58 | disposition home or self-care (01) ==
LOC: HO.MRI 07:57
PROVIDERS: PCP Nurse Practitioner Family; Visit Provider Physician Assistant
DX: G57.93 Unspecified mononeuropathy of bilateral lower limbs (principal)
CPT/HCPCS: 72146

== ENCOUNTER → 2024-02-17 08:09 | Outpatient (BNV) | payer OTHER, SELFPAY | PROVIDERS: PCP Nurse Practitioner Family; Visit Provider Radiology Diagnostic Radiology | DX: G57.93 Unspecified mononeuropathy of bilateral lower limbs (principal) | CPT/HCPCS: 72146 ==

== ENCOUNTER 2024-02-26 08:22 | Outpatient (AMB) | payer OTHER, SELFPAY ==
[2024-02-26 08:30] VITALS: BMI 33.7
--- NOTE | 2024-02-26 08:30 | MHC.OFFVIS ---
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 States he is having shooting pain, cramping and spasms in both his legs. At times his legs jerks on its own. This all started in October 2023. No injury he can recall. States he has herniated and bulging disks. Hx of DM. Patient is currently states he is taking muscle relaxer and has noticed some improvement. He also has an appt to see a Neurology in March, and will be having a L4 injection and his MRI review with [facility]. Accompanied by: Blair Tomlinson Allergies No Known Allergies Allergy (Verified 02/26/24 08:39) Medication List - Last Reconciled 02/26/24 by Jovita Ponce MD alprazolam 0.5 mg PO DAILY PRN 30 days betamethasone dipropionate 0.05% 1 appl topical DAILY PRN blood-glucose sensor (NextlyStyle Faizan 3 Sensor device) Test blood sugar 4 times per day empagliflozin 25 mg PO QAM gabapentin 800 mg (2 x 400 mg) PO TID 30 days ibuprofen (Advil) 400 mg PO Q8H PRN magnesium oxide 400 mg PO DAILY metformin 1,000 mg PO BID 90 days morphine 15 mg PO BID PRN 5 days oxymetazoline 0.05% (Afrin (oxymetazoline)) 2 sprays intranasal Q12H PRN 3 days tadalafil (Cialis) 5 mg PO DAILY 90 days HPI Comments Details: I reviewed past medical records, history with patient and discussed that I am the same specialty as [facility]. Purpose/goall of today's visit I believe would be to go over what workup has been done so far, what diagnosis he probably has, and if there is any other recommendation coming from. Patient has been having cramping and pain on both hamstrings. It jerks spontaneously, and I was able to witness couple of those in the visit today. Patient denies any inciting injuries when it 1st started in October 2023. 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 He finds that if he pushes down near ischial tuberosity, it relieves the pain. Chronically, he admits to numbness and tingling of hands and feet. He is diabetic, diagnosed in 2017 with A1c at that time above 12. It has been controlled since then. Chronic back pain, follows previously with chiropractor. No spinal injections in the past. Had spinal meningitis when he was age 5 but no developmental difficulties since then. Workup so far: Lumbar MRI, images reviewed with patient/ a, shows a broad-based disc bulge at L4-5 with foraminal stenosis, coming close to the L4 nerve roots. No significant central spinal stenosis. Thoracic MRI does not show any significant spinal stenosis. EMG done by Dr. Spence 01/12/2024, I reviewed the nerve conduction tables myself, suggest sensorimotor peripheral neuropathy. He was also seen by neuro spine, Georges BIRD. Blood tests done: no deficiency in B6, B12, the. Normal TSH, lead, magnesium, zinc and Lyme test. He denies history of thyroid, cancer, chemo, alcohol drinking, HIV or hepatitis. He does not think he has history of chronic kidney disease He is scheduled to have an L4 epidural injection perhaps with [facility]. He is also scheduled to see Dr. Spence in his office in March. He is taking gabapentin which seems to be working but not yet completely. 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 Patient was appropriately conversant and oriented. Good historian. MSK: No specific abnormalities found on inspection of the spine and all extremities. No pain with palpation over the lumbar area. No SI joint tenderness. No GT tenderness. Do not show signs of focal tearing on hamstrings. No signs of atrophy. No swelling, redness or warmth. Some tenderness over right ischial tuberosity. Neurological: Appears nonfocal. No footdrop. No hyperreflexia seen. Although she does have spontaneous jerking on right leg. No allodynia. Gait normal. Results Reviewed Results Reviewed: I independently reviewed the results of the following: [ ] Ordering Physician: Breezy Pablo Date of Service: 02/17/24 Procedure(s): MR thoracic spine wo con Accession Number(s): [id number] cc: Breezy Pablo; Jose Alejandro Gillis [facility]-~ EXAMINATION: MR THORACIC SPINE WITHOUT CONTRAST CLINICAL INFORMATION: Unspecified mononeuropathy bilateral lower limbs. COMPARISON: None available. TECHNIQUE: MRI of the thoracic spine was obtained using routine sequences without contrast. FINDINGS: Limited by patient's breathing motion artifact. No bone marrow STIR signal abnormality. Multilevel disc desiccation. Multilevel marginal osteophyte formation more conspicuous from T5 to T8. Normal alignment. C6-7: There is a broad-based central right subarticular and foraminal disc herniation resulting in ventral deformity of the spinal cord without gross cord signal abnormality. At T1-2: No disc herniation. No neuroforamina stenosis. T2-3: No disc herniation. No neuroforamina stenosis. T3-4: Right subarticular disc herniation resulting in ventral deformity of spinal cord. No cord signal abnormality. No gross neuroforamina stenosis. T4-5: Right subarticular disc protrusion without cord compression. No cord signal abnormality. No neuroforamina stenosis. T5-6: Right subarticular disc protrusion. No cord compression. No cord signal abnormality. No neuroforamina stenosis. T6-7: No disc herniation. No gross neuroforamina stenosis. T7-8: No disc herniation. No gross neuroforamina stenosis. T8-9: Central disc protrusion without cord compression. No cord signal abnormality. No neuroforamina stenosis. T9-10: No disc herniation. No gross neuroforamina stenosis. T10-11: No disc herniation. No neuroforamina stenosis. T11-12: Broad-based disc bulging. No cord compression. No neuroforamina stenosis. Facet joint hypertrophy as well as ligamentum flavum. T12-L1: No disc herniation. No neuroforamina stenosis. Conus medullaris ends at pedicle of L1 with normal signal. No prevertebral compartment hematoma, mass or fluid collection. Descending thoracic aorta demonstrates normal caliber and flow-void signal. MR/MR thoracic spine wo con IMPRESSION: Central right subarticular and foraminal broad-based disc herniation C6-7 resulting in ventral deformity of the spinal cord without cord edema and or myelopathy and right neuroforamina narrowing. Multilevel thoracic spondylosis without cord compression, edema and or myelopathy. Electronically signed by: Richard Serra MD 02/17/2024 11:20 AM [facility] [place]ing Physician: Jose Alejandro Gillis Date of Service: 01/29/24 Procedure(s): MR lumbar spine wo con Accession Number(s): [id number] cc: Jose Alejandro Gillis~ EXAMINATION: MR LUMBAR SPINE WITHOUT CONTRAST CLINICAL INFORMATION: Unspecified mono neuropathy of bilateral lower limbs COMPARISON: None available. TECHNIQUE: MRI of the lumbar spine was obtained using routine sequences without contrast. FINDINGS: There are 5 nonrib-bearing lumbar-type vertebrae. Mild levocurvature of the lumbar spine. Normal alignment. No acute bone marrow abnormality. The vertebral body heights are preserved. Multilevel disc desiccation with mild to moderate disc height loss at L4-5 and L5-S1. Multilevel endplate osteophytosis. The visualized spinal cord is normal in caliber. No abnormal cord signal. The conus medullaris terminates at L1. 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 T12-L1: No significant spinal canal or neural foraminal narrowing. L1-2: Shallow disc bulge and bilateral facet arthrosis. No significant spinal canal or neural foraminal narrowing. L2-3: Diffuse disc bulge, ligamentum flavum hypertrophy, and bilateral facet arthrosis. Mild spinal canal stenosis. Mild right neural foraminal narrowing. L3-4: Shallow disc bulge, ligamentum flavum hypertrophy, and bilateral facet arthrosis. Mild to moderate spinal canal stenosis. Mild right greater than left neural foraminal narrowing. L4-5: Diffuse disc bulge with superimposed annular fissure. Ligamentum flavum hypertrophy and bilateral facet arthrosis. Mild spinal canal stenosis. Mild right greater than left neural foraminal narrowing with the disc abutting the exiting L4 nerve roots bilaterally. L5-S1: Shallow disc bulge and bilateral facet arthrosis. Moderate left neural foraminal narrowing. No significant spinal canal stenosis. The paravertebral soft tissues are unremarkable. Partially imaged bilateral pararenal cysts. MR/MR lumbar spine wo con IMPRESSION: Multilevel lumbar spondylosis superimposed on congenitally short pedicles resulting in diffuse lumbar spinal canal stenosis, most notable at L2-3 and L3-4. Multilevel neural foraminal narrowing is worst and moderate on the left at L5-S1. Electronically signed by: Nubia Mckinney MD 01/29/2024 02:39 PM [facility] [place] reviewed records from the following: [ ] Assessment & Plan Assessment & Plan (1) Leg cramps: Code(s): R25.2 - Cramp and spasm Category: Medical (2) Neuropathic pain, leg, bilateral: Code(s): G57.93 - Unspecified mononeuropathy of bilateral lower limbs Category: Medical (3) Lumbar radiculopathy: Code(s): M54.16 - Radiculopathy, lumbar region Category: Medical (4) Lumbar degenerative disc disease: Code(s): M51.369 - Other intervertebral disc degeneration, lumbar region without mention of lumbar back pain or lower extremity pain Category: Medical Qualifiers: Disc-related pain type: lower extremity pain only Qualified Code(s): M51.361 - Other intervertebral disc degeneration, lumbar region with lower extremity pain only Plan I agree with the followin. He does have an L4-5 disc bulge causing possibly impingement of L4 nerve roots. Possibly causing lumbar radiculopathy causing his leg cramps. I agree on trial of L4 epidural injection, which could be both diagnostic and therapeutic. 2. He probably has peripheral neuropathy from diabetes. Discussed how diabetic peripheral neuropathy can cause stocking-glove distribution. Nerve conduction tables were reviewed by me, test was done by Dr. Spence. He is seeing Dr. Spence in March. I advised him to ask Dr. Spence if he could repeat the test in 6-12 months to see status of neuropathy. 3. Gabapentin can help with symptoms from both lumbar radiculopathy and peripheral neuropathy. He could try to maximize up to 3600 mg/day. Pregabalin/Lyrica is also an option. I do not see any focal hamstring tear that can cause his symptoms. Doubt that this is a focal issue. Would recommend adding further blood work: RONY, rheumatoid factor, CK. Ruling out other systemic/autoimmune etiology for his symptoms. Note though that EMG did not report any signs of myopathic disease. We will forward results to PCP once I get them. Assessment and plan discussed with patient, and patient was agreeable. All questions were answered thoroughly. Total of 1 hour spent today including chart review, results review, history taking, physical examination, discussion of assessment and plan, and coordination of care. Jovita Ponce MD, RENEE Board Certified, [place] Board [employer] and Rehabilitation (ABPMR) Board Certified, [place] Board [employer] Electrodiagnostic [employer] (ABEM) Orders: Orders Rheumatoid Factor Today G57.93 - Unspecified mononeuropathy of bilateral lower limbs, R25.2 - Cramp and spasm CK, Total+Isoenzymes, Serum Today G57.93 - Unspecified mononeuropathy of bilateral lower limbs, R25.2 - Cramp and spasm RONY Reflex Titer and Pattern Today G57.93 - Unspecified mononeuropathy of bilateral lower limbs, R25.2 - Cramp and spasm Coding Level of Care Code New Pt Level 4 (85592) Diagnoses Leg cramps R25.2 Neuropathic pain, leg, bilateral G57.93 Lumbar radiculopathy M54.16 Degeneration of intervertebral disc of lumbar region with lower extremity pain M51.361 Disc-related pain type: lower extremity pain only
== END 2024-02-26 09:36 | disposition home or self-care (01) ==
PROVIDERS: PCP Nurse Practitioner Family; Visit Provider Physical Medicine & Rehabilitation
DX: R25.2 Cramp and spasm (principal); G57.93 Unspecified mononeuropathy of bilateral lower limbs; M54.16 Radiculopathy, lumbar region; M51.361 Other intervertebral disc degeneration, lumbar region with lower extremity pain only
CPT/HCPCS: 99205

== ENCOUNTER → 2024-02-26 08:22 | Outpatient (BNVA) | payer OTHER, SELFPAY | PROVIDERS: PCP Nurse Practitioner Family; Visit Provider Physical Medicine & Rehabilitation ==

== ENCOUNTER 2024-04-13 08:04 | Outpatient (AMB) | payer OTHER, SELFPAY ==
--- NOTE | 2024-04-13 08:03 | MHC.OFFVIS ---
Intake Visit Reasons: Back Concerns Allergies No Known Allergies Allergy (Verified 02/26/24 08:39) Medication List - Last Reconciled 04/13/24 by ROSALINO CarpenterP- alprazolam 0.5 mg PO DAILY PRN 30 days betamethasone dipropionate 0.05% 1 appl topical DAILY PRN blood-glucose sensor (FreeStyle Faizan 3 Sensor device) Test blood sugar 4 times per day empagliflozin 25 mg PO QAM gabapentin 800 mg (2 x 400 mg) PO TID 30 days ibuprofen (Advil) 400 mg PO Q8H PRN magnesium oxide 400 mg PO DAILY metformin 1,000 mg PO BID 90 days morphine 15 mg PO BID PRN 5 days oxymetazoline 0.05% (Afrin (oxymetazoline)) 2 sprays intranasal Q12H PRN 3 days tadalafil (Cialis) 5 mg PO DAILY 90 days HPI HPI Back Concerns: Details: History of Present Illness The patient is a 53-year-old male presenting with lower back pain accompanied by radicular symptoms in the left lower extremity. 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 He received an epidural cortisone injection at L4-L5, which improved his condition by approximately 90%. He continues to use gabapentin for pain management. Significant medical history includes diabetic neuropathy, which might contribute to a small amt of his pains. Anxiety: we plan to start buspirone low dose, denies any si or hi. Weight loss was identified as a target for his overall management. Review of Systems - Musculoskeletal: Reports lower back pain with radicular symptoms. - Neurological: Denies signs suggestive of cauda equina syndrome. - Psychological: Reports anxiety. Plan For the management of lower back pain with radiculopathy, the patient will continue with gabapentin, as it has been effective. An epidural cortisone injection provided significant symptom relief and will be part of ongoing management if needed. For anxiety, buspirone will be initiated to improve his symptoms. Diabetic neuropathy was considered in his symptomatology, and relevant strategies will be adapted. Weight loss is encouraged as a modifiable factor to improve his condition, with plans to address these aspects at future visits. Discussion Notes I discussed with the patient the current status of his lower back pain, noting the positive response to the epidural cortisone injection and continued use of gabapentin. 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 For his anxiety, I recommended starting buspirone, detailing the benefits of this medication in alleviating symptoms. We acknowledged the role his diabetic neuropathy plays in his overall condition. Additionally, I emphasized the importance of weight management to aid in his recovery and overall health, with a follow-up plan to reassess both his diabetes management and weight objectives at the month's end. Patient Instructions - Continue taking gabapentin as prescribed. - Begin buspirone for anxiety management. - Aim for weight loss through diet and exercise to help reduce pressure on the back. - Monitor for any new or worsening symptoms, such as bowel or bladder changes, which should be reported immediately. - Follow up at the end of the month to reassess diabetes and weight management. [facility] Medical History (Updated 04/13/24 @ 08:03 by Jose Alejandro Gillis, [facility]) Neuropathic pain, leg, bilateral Cough Chills Diabetes Erectile dysfunction Surgical History Hx of colonoscopy Family History Sister Mental health disorder Sister Mental health disorder Mother Mental health disorder Social History (Updated 02/26/24 @ 08:42 by HUNG Patterson) Housing: House Comment: medicated Patient Tobacco Use Status: Former Tobacco user Tobacco use type: Cigarette e-Cigarette/Vaping Use: Never Used Second Hand Smoke Exposure: No service: No Current occupational status: employed 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 Current occupational exposures/hazards: No Cognitive needs: No Hearing needs: No Vision needs: No Telehealth Telehealth Telehealth Platform: [facility] Location of provider rendering services: practice address Location of patient: address on file Patient Identification confirmed using: Name, : Yes Telehealth method: video Patient verbally consented to treatment: Yes Patient verbally consented to billing insurance company: Yes Patient informed of any privacy concerns related to visit: Yes Minutes spent on Phone/Video with Pt.: 18 Assessment & Plan Assessment & Plan (1) Lumbar degenerative disc disease: Code(s): M51.369 - Other intervertebral disc degeneration, lumbar region without mention of lumbar back pain or lower extremity pain Category: Medical Qualifiers: Disc-related pain type: lower extremity pain only Qualified Code(s): M51.361 - Other intervertebral disc degeneration, lumbar region with lower extremity pain only (2) Lumbar stenosis: Code(s): M48.061 - Spinal stenosis, lumbar region without neurogenic claudication Category: Medical (3) Neuropathic pain, leg, bilateral: Code(s): G57.93 - Unspecified mononeuropathy of bilateral lower limbs Category: Medical (4) Anxiety: Code(s): F41.9 - Anxiety disorder, unspecified Category: Medical Plan . Medications: New buspirone 5 mg PO BID 60 tabs 0RF 30 days Refilled gabapentin 800 mg (2 x 400 mg) PO TID 180 caps 2RF 30 days Coding Level of Care Code Tele Est Pt Level 4 (46837) Diagnoses Degeneration of intervertebral disc of lumbar region with lower extremity pain M51.361 Disc-related pain type: lower extremity pain only Lumbar stenosis M48.061 Neuropathic pain, leg, bilateral G57.93 Anxiety F41.9
--- OUTSIDE RECORDS SUMMARY | 2024-04-13 08:14 | XMS_ITS | Clinical Summary ---
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 14 capsule 11/24/2022 Active Social History Tobacco Use Types Packs/Day Years Used Date Smoking Tobacco: Never Tobacco Cessation:Counseling Given: Not Answered Alcohol Use Standard Drinks/Week Comments Not Currently 0 (1 standard drink = 0.6 oz pur e alcohol) Sex and Gender Information Value Date Recorded Sex Assigned at Male 11/23/2022 11:52 PM EDT Legal Sex Male 11:21 PM EDT Gender Identity Male 11/23/2022 11:52 PM EDT Sexual Orientation Straight 11/23/2022 11 :52 PM EDT Last Filed Vital Signs Vital Sign Reading Time Taken Comments Blood Pressure 156/98 11/23/2022 11:25 PM EDT Pulse 74 11/23/2022 11:25 PM EDT Temperature 36.9 ??C (98.4 ??F) 11/23/2022 11:25 PM E DT Respiratory Rate 18 11/23/2022 11:25 PM EDT Oxygen Saturation 98% 11/23/2022 11:25 PM EDT Inhaled Oxygen Concentration - - Weight 129.9 kg (286 lb 6 oz) 11/23/2022 11:25 P M EDT Height 190.5 cm (6' 3 ) 11/23/2022 11:25 PM EDT Body Mass Index 35.79 11/23/2022 11:25 PM EDT Plan of Treatment Health Maintenance Due Date Last Done Comments HIV screening 06/03/1984 Hepatitis C screening 06/03/1989 Tetanus adult (Td q 10,TDAP once) 1991 Lipid disorder screening 2011 Colon cancer screening, Colonoscopy 06/03/2016 Shingles vaccine (Shingrix) (1 of 2 - Shingrix (RZV) 2 Dose Standard Series) 06/03/2021 Influenza vaccine 09/10/2023 Covid-19 vaccine series (1 - season) 2023 Diabetes screening 11/24/2025 11/24/2022 Pneumococcal Vaccine (50+ ye ars) (1 of 1 - PCV) 06/03/2036 RSV Discussion (1 - 1-dose 7 5+ series) 06/03/2046 Meningococcal Vaccine Aged Out No paz montrell eligible based on patient's age to complete this topic Pneumococcal Vaccine (2 - 49 years) Aged Out No longer eligible b ased on patient's age to complete this topic Procedures Procedure Name Priority Date/Time Associated Diagnosis Comments BASIC METABOLIC PANEL STAT 11/24/2022 12:20 AM EDT from Last 3 Months or Most Recently Relevant to Health Maintenance Results * (ABNORMAL) Basic metabolic panel (11/24/2022 12:20 AM EDT) Glucose 164(H) 65 - 110 mg/dL 11/24/2022 1:02 AM EDT [facility] Comment: Non-fasting: ??65-110 mg/dL Fasting (minimum 6 hrs): ??65-99 mg/dL BUN 16 7 - 18 mg/dL 11/24/2022 1:02 AM EDT [facility] Creatinine 0.99 0.70 - 1.30 mg/dL 11/24/2022 1:02 AM EDT [facility] Sodium 140 136 - 145 mmol/L 11/24/2022 1:02 AM EDT [facility] Potassium 3.7 3.5 - 5.1 mmol/L 11/24/2022 1:02 AM EDT [facility] Chloride 106 98 - 107 mmol/L 11/24/2022 1:02 AM EDT [facility] CO2 27 21 - 32 mmol/L 11/24/2022 1:02 AM EDT [facility] Anion Gap 7 5 - 15 mmol/L 11/24/2022 1:02 AM EDT [facility] Calcium 8.4(L) 8.5 - 10.1 mg/dL 11/24/2022 1:02 AM EDT [facility] eGFR (Creatinine) >60 >=60 mL/min/1.7 3m2 11/24/2022 1:02 AM EDT [facility] Comment: Values < 60 mL/min/1.73 m2 may indicate CKD if present for more than three months AND creatinine is at steady state. The eGFR provides a rough estimate of kidney function. On 09/24/[address] [facility] Clinical Labs and Epic began using a zzb-cayb-uqoyd formula for estimating GFR called CKD-EPI Creatinine 2020. This equation reports eGFR based on creatinine, patient age, clinical sex, and is standardized to a body surface area of 1.73 m2. For the same creatinine, this new race-free eGFR will be lower than prior reported Black eGFR results and higher than prior Non-Black eGFR results. For further guidance, please refer to the CKD: Adult Chef Assistant Signature pathway. Blood Venipuncture / Unknown 11/24/2022 12:20 AM EDT 11/24/2022 12:30 AM EDT Lawrence Gallegos MD LAB BLOOD ORDERABLES Final Res ult [facility] [address] [place] [address] from Last 3 Months or Most Recently Relevant to Health Maintenance Insurance [employer]CIAL [employer] COMMERCIAL [employer]IC COMMERCIAL [employer]IC
== END 2024-04-13 08:06 | disposition home or self-care (01) ==
LOC: HO.HMCC 08:04
PROVIDERS: PCP Nurse Practitioner Family; Visit Provider Nurse Practitioner Family
DX: M51.361 Other intervertebral disc degeneration, lumbar region with lower extremity pain only (principal); M48.061 Spinal stenosis, lumbar region without neurogenic claudication; G57.93 Unspecified mononeuropathy of bilateral lower limbs; F41.9 Anxiety disorder, unspecified

== ENCOUNTER 2024-05-03 10:27 | Outpatient (AMB) | payer OTHER, SELFPAY ==
--- NOTE | 2024-05-03 10:29 | MHC.PC.OV ---
Vital Signs 05/03/24 10:30 Height 6 ft 3 in Weight 293 lb BMI 36.6 BP 116/66 Blood Pressure Location Rt brachial Position Sitting Respiration 20 Pulse 73 Pulse Source Pulse Oximeter Temp 98.0 F Temp Source Oral Pulse Oximetry (%) 98 Oxygen Delivery Method Room Air Intake Visit Reasons: 4 months f/up Intake Note: Pt is here today for 4 months follow up visit on DM. Allergies No Known Allergies Allergy (Verified 05/03/24 10:33) Tobacco use date assessed: 05/03/24 Dental Screening Dental Screen Date: 05/03/24 Did you have a dental visit in the last 12 months?: Yes Did you have a dental problem in the last 6 months where you did not have access to dental care?: No Was dental information given to patient?: Patient has dentist HPI 4 months f/up HPI Details Chief Complaint Patient presents for follow-up regarding diabetes management and related complications. History of Present Illness The patient is a 53-year-old male presenting with concerns related to his Type 2 Diabetes Mellitus. He reports that his glucose sensor consistently shows readings around 200 mg/dL, yet his A1c today was reported at 6.7%. This discrepancy has led to some confusion, and plans are made to recheck the A1c through blood tests. The patient experiences diabetic neuropathy in the bilateral extremities but declined a foot examination during the visit. Furthermore, he has a recent lower back injury, although further specific details regarding its onset and related symptoms were not provided during the visit. Social History Health Maintenance - Re-evaluation of A1c through blood work recommended. Review of Systems - Neurological: Reports neuropathy in bilateral extremities. - Musculoskeletal: Reports recent lower back injury. Physical Exam General: Cooperative, healthy appearing, comfortable, no acute distress and well developed Orientation: Patient oriented x3 Limitations: No limitations Head: Normal to inspection Ears: Hearing grossly normal bilaterally Nose: Normal external nose present Face and sinus: Normal facial exam Eyes: Appearance normal, both eyes and all related structures Neck: Normal visual inspection and Yes full ROM Respiratory: Normal respiratory effort and able to speak in complete sentences. Clear to auscultation bilaterally Cardiovascular: Regular rate and rhythm. Normal S1 and S2 GI: Normal to inspection. Soft to palpation and nontender Skin: No rashes or lesions noted Neuro: Patient oriented x3 Extremities: Neuropathy in bilateral extremities noted Results - Labs: A1c today reported at 6.7%. Plan I am planning to repeat the A1c test through a blood draw to address the observed discrepancy with sensor readings. Ongoing monitoring for diabetes management and neuropathy will continue. The patient should focus on maintaining controlled glucose levels. Despite the current lack of action regarding the lower back pain, further evaluation may be warranted if symptoms persist or worsen. Discussion Notes I discussed with the patient the discrepancy between his glucose sensor readings and the A1c value. We considered repeating the A1c test through blood work to ensure its accuracy. The management of his diabetes will require consistent monitoring, aiming to keep the A1c at or below current levels. I also highlighted the importance of addressing diabetic neuropathy through regular follow-ups, despite the patient's refusal of a foot examination today. We briefly touched upon the new lower back issue, acknowledging the need for future assessment as necessary. Patient Instructions - Follow-up for a blood test to repeat the A1c soon. - Continue with regular glucose monitoring. - Report any significant changes in symptoms, particularly regarding neuropathy and back pain. - Maintain regular follow-ups for diabetes management. [facility] Medical History (Updated 04/13/24 @ 08:03 by Jose Alejandro Gillis [facility]) Neuropathic pain, leg, bilateral Cough Chills Diabetes Erectile dysfunction Surgical History Hx of colonoscopy Family History Sister Mental health disorder Sister Mental health disorder Mother Mental health disorder Social History (Updated 02/26/24 @ 08:42 by HUNG Patterson) Housing: House Comment: medicated Patient Tobacco Use Status: Former Tobacco user Tobacco use type: Cigarette e-Cigarette/Vaping Use: Never Used Second Hand Smoke Exposure: No service: No Current occupational status: employed 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 1. Little interest or pleasure in doing things: not at all 2. Feeling down, depressed, or hopeless: not at all 3. Trouble falling or staying asleep, or sleeping too much: nearly every day 4. Feeling tired or having little energy: nearly every day 5. Poor appetite or overeating: not at all 6. Feeling bad about yourself - or that you are a failure or have let yourself or your family down: not at all 7. Trouble concentrating on things, such as reading the newspaper or watching television: several days 8. Moving or speaking so slowly that other people could have noticed. Or the opposite - being so fidgety or restless that you have been moving around a lot more than usual: several days 9. Thoughts that you would be better off or of hurting yourself in some way: not at all Total score: 8 Depression Screening Interpretation: Positive Depression Screening Follow-up: Existing condition and Declines treatment Depression Screening Done: Yes 15458 - PHQ-9 Billing: Yes Source: Developed by Drs. Emmanuel Harrison, Tonya Sargent, Brett Wadsworth and colleagues, with an educational chicho from [email or web address]. Thrive Questionnaire Date Thrive assessed: 05/03/24 I am a: Patient What is your living situation today?: I have a steady place to live Within the past 12 months, did the food you bought not last and you didn't have the money to get more?: I choose not to answer this question Within the past 12 months, did you worry whether your food would run out before you got money to buy more?: I choose not to answer this question Do you have trouble paying for medicines?: I choose not to answer this question Do you have trouble getting transportation to medical appointments?: I choose not to answer this question Do you have trouble paying your heating and electricity bill?: I choose not to answer this question Do you have trouble taking care of your child, family member or friend?: I choose not to answer this question Do you have trouble with day-to-day activities such as bathing, preparing meals, shopping, managing finances, etc.?: I choose not to answer this question Are you currently unemployed and looking for a job?: I choose not to answer this question Are you interested in more education?: I choose not to answer this question Please select the resources that you would like help with: None Currently or been in a relationship where the following occur: I choose not to answer THRIVE Score: 0 AUDIT C Alcohol Use Questionnaire (AUDIT-C) 1. How often do you have a drink containing alcohol?: Never 3. How often do you have six or more drinks on one occasion?: Never Total Score: 0 LEONEL-7 AMB Questionnaire LEONEL-7 Date LEONEL - 7 assessed: 05/03/24 Feeling nervous, anxious, or on edge: 0 = Not at all Not being able to stop or control worryin = Not at all Worrying too much about different things: 0 = Not at all Trouble relaxin = Not at all Being so restless that it is hard to sit still: 0 = Not at all Becoming easily annoyed or irritable: 0 = Not at all Feeling afraid as if something awful might happen: 0 = Not at all Total LEONEL-7 score (0-4 normal; 5-9 mild; 10-14 moderate; 15-21 severe): 0 Source: Developed by Drs. Emmanuel Harrison, Tonya Sargent, Brett Wadsworth and colleagues, with an educational chicho from [email or web address]. LEONEL-7 Assessment Billing LEONEL-7 Assessment Tool: LEONEL-7 Assessment 46017 Physical exam (Primary Care) Vital Signs: Last Vital Signs Temp 98.0 F 05/03/24 10:30 Pulse 73 05/03/24 10:30 Resp 20 05/03/24 10:30 BP 116/66 05/03/24 10:30 Pulse Ox 98 05/03/24 10:30 Oxygen Delivery Method Room Air 05/03/24 10:30 BMI result Body Mass Index 36.6 Tobacco/Smoking Status: Tobacco use Status Tobacco use date assessed 05/03/24 05/03/24 10:38 Patient Tobacco Use Status Former Tobacco user 05/03/24 10:30 Tobacco use type Cigarette 05/03/24 10:30 e-Cigarette/Vaping Use Never Used 05/03/24 10:30 PHQ-9: PHQ-9 Score PHQ-9: Total score 8 05/03/24 10:45 Depression Screening Interpretation: Positive Depression Screening Follow-up: Existing condition and Declines treatment Thrive Assessment: Date of Thrive Assessment Date Thrive assessed 05/03/24 05/03/24 10:38 Currently or been in a relationship where the following occur: I choose not to answer Results AMB Hemoglobin A1c AMB Hemoglobin A1c 6.7 % Last Edit by TOM Murdock on 05/03/24 10:46 Results Reviewed Results Reviewed: Laboratory Last Values Hgb A1c (Clinic) 6.7 % (4.0-6.0) H 05/03/24 10:45 Coding Level of Care Code Est Pt Level 3 (27949) Diagnoses Diabetes E11.9 Additional Codes LEONEL-7 Assessment Billing - LEONEL-7 Assessment Tool: LEONEL-7 Assessment 02881 ([id number]) PHQ-9 - 44406 - PHQ-9 Billing: Yes ([id number]) Assessment & Plan Assessment & Plan (1) Diabetes: Code(s): E11.9 - Type 2 diabetes mellitus without complications Category: Medical Plan . Orders: Orders Comprehensive [place]. Panel Fast Today E11.9 - Type 2 diabetes mellitus without complications Lipid Panel Today E11.9 - Type 2 diabetes mellitus without complications Hemoglobin A1c Today E11.9 - Type 2 diabetes mellitus without complications AMB Hemoglobin A1c Today Z13.9 - Encounter for screening, unspecified Complete Blood Count Auto Diff Today E11.9 - Type 2 diabetes mellitus without complications TSH reflex Free T4 Today E11.9 - Type 2 diabetes mellitus without complications UA CC w/rflx Micro + Cult Today E11.9 - Type 2 diabetes mellitus without complications
[2024-05-03 10:30] VITALS: BP 116/66; PULSE 73; RESP 20; TEMP 36.7; O2SAT 98; BMI 36.6
--- OUTSIDE RECORDS SUMMARY | 2024-05-03 12:32 | XMS_ITS | Clinical Summary ---
Author Organization [address] Address [address] [place] [address] Phone Care Team Providers Care Service Unit Operator Oil Well Name Role Phone Unavailable Primary Care Provider [...] (1 of 1 - PCV) 06/03/2036 RSV Immunization (1 - 1-dose 75+ series) 06/03/2046 Meningococcal Vaccine Aged Out No [...] - 32 mmol/L 11/24/2022 1:02 AM EDT [facility] Anion Gap 7 5 - 15 mmol/L 11/24/2022 1:02 AM EDT [facility] Calcium 8.4(L) 8.5 - 10.1 mg/dL 11/24/2022 1:02 AM EDT [facility] eGFR (Creatinine) >60 >=60 mL/min/1.7 3m2 11/24/2022 1:02 AM EDT [facility] Comment: Values < 60 mL/min/1.73 m2 may indicate CKD if present for more than three months AND creatinine is at steady state. The eGFR provides a rough estimate of kidney function. On 09/24/21 all [facility] Clinical Labs and Epic began using a pco-vtik-ksory formula for estimating GFR called CKD-EPI Creatinine 2020. This equation reports eGFR based on creatinine, patient age, clinical sex, and is standardized to a body surface area of 1.73 m2. For the same creatinine, this new race-free eGFR will be lower than prior reported Black eGFR results and higher than prior Non-Black eGFR results. For further guidance, please refer to the CKD: Adult Computing Architect Signature pathway. Blood Venipuncture / Unknown 11/24/2022 12:20 AM EDT 11/24/2022 12:30 AM EDT Lawrence Gallegos MD LAB BLOOD ORDERABLES Final Res ult [facility] [address] [place] [address] from Last 3 Months or Most Recently Relevant to Health Maintenance Insurance COMMERCIAL [employer]IC COMMERCIAL GENERIC COMMERCIAL GENERIC
== END 2024-05-03 11:27 | disposition home or self-care (01) ==
LOC: HO.HMCC 10:27
PROVIDERS: PCP Nurse Practitioner Family; Visit Provider Nurse Practitioner Family
DX: E11.9 Type 2 diabetes mellitus without complications (principal); Z13.9 Encounter for screening, unspecified

== ENCOUNTER → 2024-05-03 10:27 | Outpatient (BNVA) | payer OTHER, SELFPAY | PROVIDERS: PCP Nurse Practitioner Family; Visit Provider Nurse Practitioner Family | DX: E11.9 Type 2 diabetes mellitus without complications (principal) | CPT/HCPCS: 83036; 96127 ==

== ENCOUNTER 2024-08-01 14:53 | Emergency (ER) | payer OTHER, SELFPAY ==
--- NOTE | ~2024-08-01 | XR_ITS ---
EXAMINATION: XR CHEST CLINICAL INFORMATION: CP COMPARISON: October 08, 2022. TECHNIQUE: 2 views of the chest were obtained. FINDINGS: No consolidation, pleural effusion or pneumothorax. No hyperinflation. Cardiomediastinal silhouette size is normal. Osseous structures are intact. Degenerative changes in the right acromioclavicular joint.. XR/XR chest 2V IMPRESSION: No acute airspace disease. Electronically signed by: Richard Serra MD 08/01/2024 03:56 PM EDT
--- NOTE | 2024-08-01 14:56 | ECG_ITS ---
Test Reason : CP Blood Pressure : */* mmHG Vent. Rate : 81 BPM Atrial Rate : 81 BPM P-R Int : 146 ms QRS Dur : 128 ms QT Int : 392 ms P-R-T Axes : 23 -50 22 degrees QTcB Int : 455 ms Normal sinus rhythm Right bundle branch block Left anterior fascicular block Bifascicular block Abnormal ECG No previous ECGs available Referred By: Generic ED Physician Electronically Signed By: LLOYD ROMAN
[2024-08-01 15:11] VITALS: BP 142/73; PULSE 82; RESP 18; TEMP 36.6; O2SAT 97; BMI 36.7
--- NOTE | 2024-08-01 15:11 | ED.CHESTPAIN ---
HPI - Chest Pain General Chief Complaint: Chest Pain Stated Complaint: Poss Heart Attack Time Seen by Provider: 08/01/24 17:23 Related Data Home Medications ?Medication ?Instructions ?Recorded ?Confirmed ibuprofen 200 mg tablet (Advil) 400 mg PO Q8H PRN 10/01/22 04/13/24 magnesium oxide 400 mg PO DAILY 11/10/23 04/13/24 Previous Rx's ?Medication ?Instructions ?Recorded betamethasone dipropionate 0.05 % 1 appl topical DAILY PRN skin 01/09/22 topical cream irritation #45 grams oxymetazoline 0.05 % nasal spray 2 spray intranasal Q12H PRN nasal 05/25/23 (Afrin (oxymetazoline)) congestion 3 days #22 mL blood-glucose sensor (FreeStyle #6 ea 08/31/23 Faizan 3 Sensor device) tadalafil 5 mg tablet (Cialis) 5 mg PO DAILY 90 days #90 tabs 12/03/23 empagliflozin 25 mg tablet 25 mg PO QAM #90 tabs 02/18/24 morphine 15 mg immediate release 15 mg PO BID PRN pain 5 days #15 02/19/24 tablet tabs gabapentin 400 mg capsule 800 mg (2 x 400 mg) PO TID 30 days 04/13/24 #180 caps buspirone 5 mg tablet 5 mg PO BID 90 days #180 tabs 05/12/24 metformin 1,000 mg tablet 1,000 mg PO BID 90 days #180 tabs 07/04/24 Allergies Allergy/AdvReac Type Severity Reaction Status Date / Time No Known Allergies Allergy Verified 08/01/24 15:16 [facility] Past Medical History Medical History (Updated 08/02/24 @ 00:01 by Karlos Oakes) Neuropathic pain, leg, bilateral Cough Chills Diabetes Erectile dysfunction Surgical History Hx of colonoscopy Family History Family History Sister Mental health disorder Sister Mental health disorder Mother Mental health disorder Social History Social History (Updated 02/26/24 @ 08:42 by HUNG Patterson) Housing: House Alcohol intake: never Comment: medicated Patient Tobacco Use Status: Former Tobacco user Tobacco use type: Cigarette e-Cigarette/Vaping Use: Never Used Second Hand Smoke Exposure: No service: No Current occupational status: employed 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 RME assessment and note performed by: Marlena Honeycutt PA-C This is a 3-hof[age]bs-male, with a hx of diabetes, chronic back pain, who presents to the ER with complaints of episode of chest pain while he was at rest and got a sudden episode of left sided chest pain. Reports that he was outdoors working - on light duty, drinking lots of water and suddenly developed this. Lasted several seconds and resolved on its own. He has no pain. reports that he had numbness in his left head and left arm. Dad from [place] when he was 79. Neuros intact Plan: Labs, EKG, CXR, further ER eval needed Medications Administered Discontinued Medications Generic Name Dose Route Start Last Admin Trade Name Freq PRN Reason Stop Dose Admin Ibuprofen 600 mg 08/01/24 18:12 08/01/24 18:20 Ibuprofen 600 Mg Tablet PO 08/01/24 18:13 600 mg ONCE ONE Administration Medical Decision Making Medical Decision Making [facility] Narrative: 54-year-old male with atypical approximately 5 seconds long sharp parasternal pain no radiation. Vague facial and arm paresthesias not suggestive of CVA or TIA. No tearing or ripping. No widened mediastinum. Patient not severely hypertensive nor with active pain doubt aortic dissection. No PE risks. The patient will need close follow up but we have effectively ruled out [place] here the characters atypical and heart scores appropriate for discharge Heart score 3. Differential Diagnosis Musculoskeletal pain, ACS, pleuritis, pericarditis Lab Data [facility] Lab Attestation statement: I reviewed the patient's lab results. 08/01/24 16:08 08/01/24 16:08 Labs: Lab Results 08/01/24 08/01/24 Range/Units 16:08 17:55 WBC 8.7 (4.8-10.8) X10*3/uL RBC 5.36 (4.60-5.80) X10*6/uL Hgb 15.6 (14.0-18.0) g/dl Hct 46.9 (42.0-52.0) % MCV 87.5 (80.0-98.0) fL MCH 29.1 (27.0-33.0) pg MCHC 33.3 (31.0-36.0) g/dl RDW 12.8 (11.0-16.0) % Plt Count 247 (160-400) X10*3/uL MPV 9.7 (9.4-12.4) fL Immature Gran % (Auto) 0.3 (0.0-0.4) % Neut % (Auto) 63.0 (45-73) % Lymph % (Auto) 26.1 (20-40) % [place] % (Auto) 7.6 (2-11) % Eos % (Auto) 2.4 (0-4) % Baso % (Auto) 0.6 (0-2) % Lymph # (Auto) 2.3 (1.2-4.9) X10*3/uL [place] # (Auto) 0.7 (0.1-1.2) X10*3/uL Eos # (Auto) 0.2 (0.0-0.4) X10*3/uL Baso # (Auto) 0.1 (0.0-0.2) X10*3/uL Abs Immat Gran (auto) 0.03 (0.00-0.03) X10*3/uL Absolute Neuts (auto) 5.5 (2.0-8.3) x10*3/uL Absolute Nucleated RBC 0.000 (0.0-0.012) X10*3/uL Nucleated RBC % (auto) 0.0 (0.0-0.2) /100WBC Sodium 139 (135-145) mmol/L Potassium 3.9 D (3.3-5.1) mmol/L Chloride 105 (96-108) mmol/L Carbon Dioxide 26 (22-29) mmol/L Anion Gap 12 (12-20) BUN 13 (9-16) mg/dL Creatinine 0.76 (0.5-1.4) mg/dL Estim Creat Clear Calc 165.3 Estimated GFR > 60 Random Glucose 166 H (60-115) mg/dL Calcium 9.5 (8.4-10.2) mg/dL Magnesium 2.0 (1.6-2.6) mg/dL Total Bilirubin 0.4 (0.0-1.0) mg/dL Direct Bilirubin 0.1 (0.0-0.5) mg/dL AST 16 (5-37) U/L ALT 40 (0-40) U/L Alkaline Phosphatase 90 (39-117) U/L Troponin I High Sens < 2.7 2.9 (<3.5-35.0) ng/L Total Protein 6.8 (6.5-8.0) g/dL Albumin 4.3 (3.5-5.0) g/dL Independent Interpretation I performed an independent interpretation of an: EKG (Sinus rhythm right bundle-branch block no acute ischemic changes) Discharge Plan Discharge Clinical Impression: Chest pain Patient Disposition: Home, Self-Care Instructions: Chest Pain (DC) Additional Instructions: DISCHARGE DIAGNOSES: Chest pain unclear cause. This needs urgent outpatient evaluation by your primary doctor as we discussed HISTORY OF PRESENTATION: ?Sharp chest pain about 5 seconds with paresthesias of the face and left shoulder and hand region. No motor weaknesses EMERGENCY DEPARTMENT COURSE,TESTS, TREATMENTS: While in the ED today you had evaluation including blood tests for heart attack which were negative. Blood counts and chemistry tests were normal. EKG showed right bundle branch block which is nonspecific we did not have a recent comparison but your EKG was different in 2021 this is of unclear relevance DISCHARGE MEDICATIONS: ?[We have made no changes to your regular medication regimen] FOLLOW-UP: ?Call your primary or general physician soon as possible to discuss your symptoms, your ED visit and to discuss follow up plans It is crucial you call your primary doctor tomorrow as you may need outpatient provocative testing like a stress test or echocardiogram. INSTRUCTIONS ?& RETURN PRECAUTIONS: If any symptoms change first call your primary physician, if it is after-hours your primary doctors office should have a provider television equipment operator you can speak with. If the symptoms are severe or very concerning to you then call 911 or return to the ED. If you get another episode particularly if it is with exertion of chest pain call 911 or return back to the emergency department Al Palomares MD Emergency Physician [facility] Prescriptions: No Action (DME) [employer] Faizan 3 Sensor Device See Rx Instructions .Route Qty: 6 1RF Rx Instructions: Test blood sugar 4 times per day empagliflozin 25 mg tablet 25 mg PO QAM Qty: 90 1RF morphine 15 mg tablet 15 mg PO BID PRN (Reason: pain) 5 Days Qty: 15 0RF Rx Instructions: Partial Fill upon patient request. buspirone 5 mg tablet 5 mg PO BID 90 Days Qty: 180 0RF metformin 1,000 mg tablet 1,000 mg PO BID 90 Days Qty: 180 1RF ibuprofen [Advil] 200 mg tablet 400 mg PO Q8H PRN betamethasone dipropionate 0.05 % cream 1 appl topical DAILY PRN (Reason: skin irritation) Qty: 45 1RF oxymetazoline [Afrin (oxymetazoline)] 0.05 % spray,non-aerosol 2 spray intranasal Q12H PRN (Reason: nasal congestion) 3 Days Qty: 22 0RF tadalafil [Cialis] 5 mg tablet 5 mg PO DAILY 90 Days Qty: 90 3RF Rx Instructions: [id number] [facility] [id number] Member [id number] gabapentin 400 mg capsule 800 mg PO TID 30 Days Qty: 180 2RF magnesium oxide 400 mg magnesium tablet 400 mg PO DAILY Interventions: ED Discharge Assessment Last Done: 08/01/24 19:22 Discharge Date/Time: 08/01/24 19:25 Print Language: Telugu
[2024-08-01 16:13] LABS: MANUAL DIFF FLAG NO
[2024-08-01 16:17] LABS: Basophils Absolute Auto 0.1 X10*3/uL (0.0-0.2); Basophils Percent Auto 0.6 % (0-2); Eosinophils Absolute Auto 0.2 X10*3/uL (0.0-0.4); Eosinophils Percent Auto 2.4 % (0-4); Hematocrit 46.9 % (42.0-52.0); Hemoglobin 15.6 g/dl (14.0-18.0); Imm Gran Abs Auto 0.03 X10*3/uL (0.00-0.03); Imm Gran Pct Auto 0.3 % (0.0-0.4); Lymphocytes Absolute Auto 2.3 X10*3/uL (1.2-4.9); Lymphocytes Percent Auto 26.1 % (20-40); Mean Corpuscular HGB Conc 33.3 g/dl (31.0-36.0); Mean Corpuscular Hemoglobin 29.1 pg (27.0-33.0); Mean Corpuscular Volume 87.5 fL (80.0-98.0); Mean Platelet Volume 9.7 fL (9.4-12.4); Monocytes Absolute Auto 0.7 X10*3/uL (0.1-1.2); Monocytes Percent Auto 7.6 % (2-11); Neutrophils Absolute Auto 5.5 x10*3/uL (2.0-8.3); Platelet Count 247 X10*3/uL (160-400); Red Blood Count 5.36 X10*6/uL (4.60-5.80); Red Cell Distribution Width 12.8 % (11.0-16.0); White Blood Count 8.7 X10*3/uL (4.8-10.8)
[2024-08-01 16:31] LABS: Alanine Aminotransferase 40 U/L (0-40); Albumin Level 4.3 g/dL (3.5-5.0); Alkaline Phosphatase 90 U/L (39-117); Anion Gap 12 (12-20); Aspartate Amino Transferase 16 U/L (5-37); Bilirubin Direct 0.1 mg/dL (0.0-0.5); Bilirubin Total 0.4 mg/dL (0.0-1.0); Blood Urea Nitrogen 13 mg/dL (9-16); Calcium 9.5 mg/dL (8.4-10.2); Carbon Dioxide 26 mmol/L (22-29); Chloride 105 mmol/L (96-108); Creatinine Clr Calc Pharmacy 165.3; Estimated Glomerular Filt Rate > 60; Glucose Random 166 mg/dL (60-115); Potassium 3.9 mmol/L (3.3-5.1); Sodium 139 mmol/L (135-145); Total Protein 6.8 g/dL (6.5-8.0)
[2024-08-01 16:37] LABS: Troponin-I High Sensitivity < 2.7 ng/L (<3.5-35.0)
[2024-08-01 17:46] VITALS: PULSE 75; RESP 20; TEMP 36.8; O2SAT 94
[2024-08-01 17:49] VITALS: BP 110/65
--- OUTSIDE RECORDS SUMMARY | 2024-08-01 17:50 | XMS_ITS | Patient Health Record ---
Author Organization [facility] Address [address] [address] Care Team Providers Care Clearance Diver Name Role Phone KemiRobyn ring Unavailable [phone] Reason For Referral No Information Problems No Known Problems Plan Of Treatment No Information Insurance Providers Payer Name Payer Address Payer Phone Subscriber Number Group Number Insured Name Patient Relationship to Insured Coverage Start Date Coverage End Date [facility] [address] [place] [address] [phone] [id number] Lawrence Bustamante Self - patient is the insured Medical (General) History Medical History History ICD Code Back,Hip,and Knee pain Chicken pox Surgical History Surgery Date(Month/Year) right hand 2007
[2024-08-01] MEDS: Ibuprofen 600 MG TABLET PO (18:20)
[2024-08-01 18:27] LABS: Troponin-I High Sensitivity 2.9 ng/L (<3.5-35.0)
[2024-08-01 19:06] VITALS: BP 121/52; PULSE 72; RESP 22; TEMP 36.9; O2SAT 96
[2024-08-01 19:22] VITALS: BP 121/52; PULSE 72; RESP 20; TEMP 36.9; O2SAT 96
== END 2024-08-01 19:25 | disposition home or self-care (01) ==
PROVIDERS: Physician Assistant Medical; Emergency Provider Emergency Medicine; PCP Nurse Practitioner Family
DX: R07.89 Other chest pain (principal); Z79.899 Other long term (current) drug therapy; Z87.891 Personal history of nicotine dependence
CPT/HCPCS: 36415; 71046; 80048; 80076; 83735; 84484; 85025; 93005; 99283; 99285

== ENCOUNTER → 2024-08-01 14:56 | Outpatient (BNV) | payer OTHER, SELFPAY | PROVIDERS: Emergency Provider Emergency Medicine; PCP Nurse Practitioner Family; Visit Provider Internal Medicine | DX: I45.2 Bifascicular block (principal) | CPT/HCPCS: 93010 ==

== ENCOUNTER → 2024-08-01 15:16 | Outpatient (BNV) | payer OTHER, SELFPAY | PROVIDERS: PCP Nurse Practitioner Family; Visit Provider Radiology Diagnostic Radiology | DX: R07.9 Chest pain, unspecified (principal) | CPT/HCPCS: 71046 ==

== ENCOUNTER 2024-08-04 11:58 | Outpatient (AMB) | payer OTHER, SELFPAY ==
--- NOTE | 2024-08-04 12:03 | A.OFFPC_ITS ---
Vital Signs 08/04/24 12:04 Height 6 ft 3 in Weight 292 lb BMI 36.5 BP 132/80 Blood Pressure Location Lt brachial Position Sitting Pulse 84 Pulse Source Pulse Oximeter Temp 98.8 F Temp Source Oral Pulse Oximetry (%) 97 Oxygen Delivery Method Room Air Intake Visit Reasons: HDF chest pain Intake Note: Pt is here today for 4 months follow up visit on DM. 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 He went to the emergency room at [facility] on August 01 for chest pain. 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 It resolved spontaneously. He denies any nausea or sweating or shortness of breath or dizziness during this episode. He tells me he has had acid reflux before but this did not feel like acid reflux to him. He had a full cardiac workup in the emergency room which was negative for any acute issues. He tells me he does have a sister who has AFib and hypertrophic cardiomyopathy. His mother has COPD and his dad passed of a [place] at the age of 78. He was sent home and told to follow up with his PCP. His heart score in the ED was a 3. Since leaving the ED, he has had no further episodes of chest pain, shortness of breath, dizziness, numbness or tingling or weakness in his extremities, sweating or nausea. He tells me he has never seen a sessions clerk but he had an echocardiogram that he recalls as being fairly normal. 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 1. Little interest or pleasure in doing things: not at all 2. Feeling down, depressed, or hopeless: not at all 3. Trouble falling or staying asleep, or sleeping too much: nearly every day 4. Feeling tired or having little energy: nearly every day 5. Poor appetite or overeating: not at all 6. Feeling bad about yourself - or that you are a failure or have let yourself or your family down: not at all 7. Trouble concentrating on things, such as reading the newspaper or watching television: several days 8. Moving or speaking so slowly that other people could have noticed. Or the opposite - being so fidgety or restless that you have been moving around a lot more than usual: several days 9. Thoughts that you would be better off or of hurting yourself in some way: not at all Total score: 8 Depression Screening Interpretation: Positive Depression Screening Follow-up: Existing condition and Declines treatment Depression Screening Done: Yes 55021 - PHQ-9 Billing: Yes Source: Developed by Drs. Emmanuel Harrison, Tonya Sargent, Brett Wadsworth and colleagues, with an educational chicho from [employer]. Thrive Questionnaire Date Thrive assessed: 05/03/24 I am a: Patient What is your living situation today?: I have a steady place to live Within the past 12 months, did the food you bought not last and you didn't have the money to get more?: I choose not to answer this question Within the past 12 months, did you worry whether your food would run out before you got money to buy more?: I choose not to answer this question Do you have trouble paying for medicines?: I choose not to answer this question Do you have trouble getting transportation to medical appointments?: I choose not to answer this question Do you have trouble paying your heating and electricity bill?: I choose not to answer this question Do you have trouble taking care of your child, family member or friend?: I choose not to answer this question Do you have trouble with day-to-day activities such as bathing, preparing meals, shopping, managing finances, etc.?: I choose not to answer this question Are you currently unemployed and looking for a job?: I choose not to answer this question Are you interested in more education?: I choose not to answer this question Please select the resources that you would like help with: None Currently or been in a relationship where the following occur: I choose not to answer THRIVE Score: 0 AUDIT C Alcohol Use Questionnaire (AUDIT-C) 3. How often do you have six or more drinks on one occasion?: Never Total Score: 0 LEONEL-7 AMB Questionnaire LEONEL-7 Date LEONEL - 7 assessed: 05/03/24 Source: Developed by Drs. Emmanuel Harrison, Tonya Sargent, Brett Wadsworth and colleagues, with an educational chicho from [employer]. Review of Systems Const All systems reviewed & are unremarkable except as noted in HPI and below Physical exam (Primary Care) Vital Signs: Last Vital Signs Temp 98.8 F 08/04/24 12:04 Pulse 84 08/04/24 12:04 BP 132/80 08/04/24 12:04 Pulse Ox 97 08/04/24 12:04 Oxygen Delivery Method Room Air 08/04/24 12:04 BMI result Body Mass Index 36.5 Tobacco/Smoking Status: Tobacco use Status Tobacco use date assessed 08/04/24 08/04/24 12:13 Patient Tobacco Use Status Former Tobacco user 08/04/24 12:13 Tobacco use type Cigarette 08/04/24 12:13 e-Cigarette/Vaping Use Never Used 08/04/24 12:13 PHQ-9: PHQ-9 Score PHQ-9: Total score 8 08/04/24 12:13 Depression Screening Interpretation: Positive Depression Screening Follow-up: Existing condition and Declines treatment Thrive Assessment: Date of Thrive Assessment Date Thrive assessed 05/03/24 08/04/24 12:13 Currently or been in a relationship where the following occur: I choose not to answer Const General: cooperative, healthy appearing, comfortable, no acute distress and well developed Orientation/consciousness: patient oriented x3 Limitations: no limitations HENMT Head: Yes normal to inspection Ears: hearing grossly normal bilaterally General nose exam: Normal external nose present Face and sinus: Yes normal facial exam Eyes General: appearance normal, both eyes and all related structures Neck Neck: Yes normal visual inspection and Yes full ROM Resp Effort & Inspection: normal respiratory effort and able to speak in complete sentences Skin General skin exam: no rashes or lesions noted Neuro General: patient oriented x3 Extrem General: Yes normal to inspection Coding Level of Care Code Est Pt Level 4 (70308) Diagnoses Family history of cardiovascular disorder Z82.49 Chest discomfort R07.89 Diabetes E11.9 Diabetes mellitus type: type 2 Diabetes mellitus retirement insulin use: unspecified retirement insulin use status Additional Codes PHQ-9 - 77947 - PHQ-9 Billing: Yes ([id number]) Assessment & Plan Assessment & Plan (1) Family history of cardiovascular disorder: Code(s): Z82.49 - Family history of ischemic heart disease and other diseases of the circulatory system Category: Medical Plan: Echo in 2021 showed mild diastolic dysfunction. Vital signs are stable, patient is well-appearing. We reviewed all of his labs from the emergency department as well as his EKG where it was noted he had a right bundle branch block as well as a left anterior fascicular block. He has been asymptomatic since his visit at the emergency department, we did review what to do if he did develop any chest pain, shortness of breath, dizziness, with nausea or episodes of sweating. I will send him to cardiology for follow-up so they can determine what testing he needs. (2) Chest discomfort: Code(s): R07.89 - Other chest pain Category: Medical Plan: As above (3) Diabetes: Code(s): E11.9 - Type 2 diabetes mellitus without complications Category: Medical Qualifiers: Diabetes mellitus type: type 2 Diabetes mellitus long term care pharmacist insulin use: unspecified retirement insulin use status Plan: As above Orders: Referrals Cardiology Referral E11.9 - Type 2 diabetes mellitus without complications, R07.89 - Other chest pain, Z82.49 - Family history of ischemic heart disease and other diseases of the circulatory system
[2024-08-04 12:04] VITALS: BP 132/80; PULSE 84; TEMP 37.1; O2SAT 97; BMI 36.5
--- OUTSIDE RECORDS SUMMARY | 2024-08-04 14:23 | XMS_ITS | Patient Health Record ---
Author Organization [facility] Address [address] [place] [address] Care Team Providers Care Line Up Machine Operator Name Role Phone KemiRobyn ring Unavailable [phone] Reason For Referral No Information Problems No Known Problems Plan Of Treatment No Information Insurance Providers Payer Name Payer Address Payer Phone Subscriber Number Group Number Insured Name Patient Relationship to Insured Coverage Start Date Coverage End Date [facility] [address] [place] [address] [id number] Lawrence Bustamante Self - patient is the insured Medical (General) History Medical History History ICD Code Back,Hip,and Knee pain Chicken pox Surgical History Surgery Date(Month/Year) right hand 2007
== END 2024-08-04 13:10 | disposition home or self-care (01) ==
LOC: HO.HMCC 11:59
PROVIDERS: PCP Nurse Practitioner Family; Visit Provider Physician Assistant
DX: Z82.49 Family history of ischemic heart disease and other diseases of the circulatory system (principal); R07.89 Other chest pain; E11.9 Type 2 diabetes mellitus without complications

== ENCOUNTER → 2024-08-04 11:58 | Outpatient (BNVA) | payer OTHER, SELFPAY | PROVIDERS: PCP Nurse Practitioner Family; Visit Provider Physician Assistant | DX: E11.9 Type 2 diabetes mellitus without complications (principal); M54.50 Low back pain, unspecified; G89.29 Other chronic pain; I48.91 Unspecified atrial fibrillation; I42.8 Other cardiomyopathies; R07.89 Other chest pain; Z82.49 Family history of ischemic heart disease and other diseases of the circulatory system | CPT/HCPCS: 96127 ==

== ENCOUNTER 2024-08-09 09:28 | Outpatient (AMB) | payer OTHER, SELFPAY ==
--- NOTE | 2024-08-09 09:31 | A.OFFVIS_ITS ---
Vital Signs 08/09/24 09:38 Height 6 ft 3 in Weight 294 lb 4 oz BMI 36.8 BP 145/76 H Blood Pressure Location Lt brachial Position Sitting Pulse 79 Pulse Source Pulse Oximeter Pulse Oximetry (%) 97 Oxygen Delivery Method Room Air Intake Visit Reasons: Spinal stenosis, lumbar Intake Note: Pain today 09/18 Dispatch Coordinator Required: No Accompanied by: Spouse Allergies No Known Allergies Allergy (Verified 08/09/24 09:35) HPI Comments Details: The patient is a 54-year-old male presenting with lumbar spinal stenosis related pain management issues. He experiences right-sided low back pain radiating to the back of his thighs, with an onset in October 2023. The pain was almost completely relief in February 2023 and partially alleviated by an epidural steroid injection at L4-L5 at [facility], providing approximately 50% relief in May; however, it persists with exacerbation during physical activities such as bending, twisting, and lifting. 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 The herniated discs have been resistant to cortisone injections. Dizziness and balance issues are also reported, which may correlate with his cervical condition and neuropathy. Current management includes gabapentin, ibuprofen, and morphine, with limited success in achieving significant pain relief. The patient's previous history of Lyme disease and diabetes mellitus, with an A1c of 6.7, is significant, and further investigation into his neck condition is indicated to assess its contribution to the neurological symptoms, given ataxia and impaired gait. - Onset: October of last year - Quality: Constant throbbing, pulsing, pounding, shooting, stabbing, sharp, cramping, tingling, aching, hurting, dull, sore and heavy. Rated at 7-10 at late afternoon/evening and 1-3/10 in the nursing services manager. - Location: Right-sided low back, radiating to the back of the thighs - Exacerbating factors: Walking, bending, flexing forward, twisting, and lifting - Relieving factors: Interlaminar epidural steroid injection provided 50% relief 05/2024 and complete pain relief in 02/2024 through [facility]. - Interference: Affects daily activities such as sitting and walking - Affect: Pain and dizziness significantly impact quality of life, causes elevated levels of stress - Analgesia: Gabapentin, ibuprofen as needed, and sparing use of morphine - Adverse Effects: Dizziness potentially related to medication or condition - Activities of Daily Living: Pain interferes with physical activities, work including bending, walking, and sitting - Aberrant Drug Related Behaviors: No evidence of misuse reported [facility] Medical History Neuropathic pain, leg, bilateral Cough Chills Diabetes Erectile dysfunction Surgical History Hx of colonoscopy Family History Sister Mental health disorder Sister Mental health disorder Mother Mental health disorder Social History Housing: House Alcohol intake: never Comment: medicated Patient Tobacco Use Status: Former Tobacco user Tobacco use type: Cigarette e-Cigarette/Vaping Use: Never Used Second Hand Smoke Exposure: No service: No Current occupational status: employed 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 Current occupational exposures/hazards: No Cognitive needs: No Hearing needs: No Vision needs: No Review of Systems Const Details: - Musculoskeletal: Reports pain with bending, flexing forward, twisting, and lifting; muscle spasms and cramps - Neurological: Reports dizziness and balance issues - Endocrine: Reports diabetes mellitus with an A1c of 6.7 All systems reviewed & are unremarkable except as noted in HPI and below Physical Exam Vital Signs: Last Vital Signs Pulse 79 08/09/24 09:38 BP 145/76 H 08/09/24 09:38 Pulse Ox 97 08/09/24 09:38 Oxygen Delivery Method Room Air 08/09/24 09:38 BMI result Body Mass Index 36.8 General: Appears afebrile. Alert and oriented. Mood and affect appropriate. Follows and participates in conversation appropriately. Respiratory effort is unlabored. No cough. Able to transition from sit to stand unassisted. Ambulates with bilaterally normal heel strike and toe off. Neck Other: Patient with decreased cervical ROM in all planes/especially with lateral rotations. Reports increased pain with cervical extensionand flexion. Spurling compression test equivocal. Pain is unchanged by Spurling maneuver with retraction. Elvey's tension test positive bilaterally, with radiation of pain from neck to wrist and fingers. Lhermitte's test was negative. DTR intact, +1 and symmetrical. Patient demonstrated 5/5 motor strength of bilateral upper extremities. 2 + radial pulses. Significant tightness throughout lower and upper trapezius muscles. Neck: Yes normal visual inspection, Yes no lymphadenopathy, Yes supple, No anterior neck swelling, Yes no JVD, No prominent supraclavicular fat pad and Yes prominent dorsocervical fat pad General: Yes no CVA tenderness Back/Spine/Pelvis Other: Limited lumbar ROM due to pain. Antalgic gait with ataxia. Demonstrates 5/5 strength of quadriceps bilaterally as well as flexion/dorsiflexion of bilateral feet against resistance. 2+ pedal pulses bilaterally. Straight leg rise with dorsiflexion positive bilaterally. +1 patellar and diminished achilles reflexes bilaterally. Facet loading test positive bilaterally. Haroon sign, Jef?s, Pelvic compression and Stinchfield tests are positive bilaterally, right>left. No groin pain with I/E hip rotations. Valsalva maneuver negative. Back: no CVA tenderness Cervical Spine: cervical ROM normal, No Lhermitte's sign positive, cervical muscular tenderness, pain with cervical ROM, No Cervical spine scars present, cervical spasm and No Cervical spine tenderness Thoracic/Lumbar Spine: thoracic and lumbar spine normal to inspection, No Thoracic/lumbar spine scar(s), Lasegue's sign positive bilateral, pain with thoraco-lumbar ROM, paraspinal muscle tenderness, thoraco-lumbar ROM limited, No thoracic spinal tenderness and lumbar spinal tenderness (L4-S1) Sacroiliac joints: bilaterally tender to palpation Results Reviewed Results Reviewed: MR THORACIC SPINE WITHOUT CONTRAST 02/17/24 CLINICAL INFORMATION: Unspecified mononeuropathy bilateral lower limbs. COMPARISON: None available. TECHNIQUE: MRI of the thoracic spine was obtained using routine sequences without contrast. FINDINGS: Limited by patient's breathing motion artifact. No bone marrow STIR signal abnormality. Multilevel disc desiccation. Multilevel marginal osteophyte formation more conspicuous from T5 to T8. Normal alignment. C6-7: There is a broad-based central right subarticular and foraminal disc herniation resulting in ventral deformity of the spinal cord without gross cord signal abnormality. At T1-2: No disc herniation. No neuroforamina stenosis. T2-3: No disc herniation. No neuroforamina stenosis. T3-4: Right subarticular disc herniation resulting in ventral deformity of spinal cord. No cord signal abnormality. No gross neuroforamina stenosis. T4-5: Right subarticular disc protrusion without cord compression. No cord signal abnormality. No neuroforamina stenosis. T5-6: Right subarticular disc protrusion. No cord compression. No cord signal abnormality. No neuroforamina stenosis. T6-7: No disc herniation. No gross neuroforamina stenosis. T7-8: No disc herniation. No gross neuroforamina stenosis. T8-9: Central disc protrusion without cord compression. No cord signal abnormality. No neuroforamina stenosis. T9-10: No disc herniation. No gross neuroforamina stenosis. T10-11: No disc herniation. No neuroforamina stenosis. T11-12: Broad-based disc bulging. No cord compression. No neuroforamina stenosis. Facet joint hypertrophy as well as ligamentum flavum. T12-L1: No disc herniation. No neuroforamina stenosis. Conus medullaris ends at pedicle of L1 with normal signal. No prevertebral compartment hematoma, mass or fluid collection. Descending thoracic aorta demonstrates normal caliber and flow-void signal. IMPRESSION: Central right subarticular and foraminal broad-based disc herniation C6-7 resulting in ventral deformity of the spinal cord without cord edema and or myelopathy and right neuroforamina narrowing. Multilevel thoracic spondylosis without cord compression, edema and or myelopathy. MR LUMBAR SPINE WITHOUT CONTRAST 01/29/24 CLINICAL INFORMATION: Unspecified mono neuropathy of bilateral lower limbs COMPARISON: None available. TECHNIQUE: MRI of the lumbar spine was obtained using routine sequences without contrast. FINDINGS: There are 5 nonrib-bearing lumbar-type vertebrae. Mild levocurvature of the lumbar spine. Normal alignment. No acute bone marrow abnormality. The vertebral body heights are preserved. Multilevel disc desiccation with mild to moderate disc height loss at L4-5 and L5-S1. Multilevel endplate osteophytosis. The visualized spinal cord is normal in caliber. No abnormal cord signal. The conus medullaris terminates at L1. 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 T12-L1: No significant spinal canal or neural foraminal narrowing. L1-2: Shallow disc bulge and bilateral facet arthrosis. No significant spinal canal or neural foraminal narrowing. L2-3: Diffuse disc bulge, ligamentum flavum hypertrophy, and bilateral facet arthrosis. Mild spinal canal stenosis. Mild right neural foraminal narrowing. L3-4: Shallow disc bulge, ligamentum flavum hypertrophy, and bilateral facet arthrosis. Mild to moderate spinal canal stenosis. Mild right greater than left neural foraminal narrowing. L4-5: Diffuse disc bulge with superimposed annular fissure. Ligamentum flavum hypertrophy and bilateral facet arthrosis. Mild spinal canal stenosis. Mild right greater than left neural foraminal narrowing with the disc abutting the exiting L4 nerve roots bilaterally. L5-S1: Shallow disc bulge and bilateral facet arthrosis. Moderate left neural foraminal narrowing. No significant spinal canal stenosis. The paravertebral soft tissues are unremarkable. Partially imaged bilateral pararenal cysts. IMPRESSION: Multilevel lumbar spondylosis superimposed on congenitally short pedicles resulting in diffuse lumbar spinal canal stenosis, most notable at L2-3 and L3-4. Multilevel neural foraminal narrowing is worst and moderate on the left at L5-S1. EMG and NE nerve conduction velocity 01/12/24 FINDINGS: Bilateral tibial and peroneal motor studies were performed. Bilateral superficial peroneal, sural, and median lateral mixed plantar studies were performed. Tibial H reflexes were obtained and paraspinal muscles were tested with a needle. IMPRESSION: Mild to moderate, mostly sensory peripheral neuropathy affecting feet more than legs. Assessment & Plan Assessment & Plan (1) Neuropathic pain, leg, bilateral: Code(s): G57.93 - Unspecified mononeuropathy of bilateral lower limbs Category: Medical (2) Cervical radiculopathy: Code(s): M54.12 - Radiculopathy, cervical region Category: Medical (3) Cervical spondylosis: Code(s): M47.812 - Spondylosis without myelopathy or radiculopathy, cervical region Category: Medical (4) Ataxia: Code(s): R27.0 - Ataxia, unspecified Category: Medical (5) Muscle spasms of neck: Code(s): M62.838 - Other muscle spasm Category: Medical Plan Schedule Caudal epidural steroid injection with catheter with sedation and fluoroscopy to address lumbar spinal stenosis and radicular pain. Expectations, risks and benefits were reviewed. Patient is aware he will be contacted to schedule this procedure. Cervical spine MRI is prioritized to examine cervical spinal and foraminal canal integrity, possibly affecting dizziness and balance. Until further imaging and evaluation, gabapentin and ibuprofen will continue to aid in pain control. Script provided for baclofen for neck and back muscle spasms, side effects and precautions were discussed with patient and family. Follow up with a Neurologist is advised for ataxia and balance issues. The implementation of physical therapy post-evaluation to support the lumbar region remains kiran. All questions and concerns have been answered and patient agreed with the plan. Follow up after injection/MRI results and sooner as needed. Patient was informed and verbally consented to the use of an ambient scribe for clinic note documentation during this visit. Orders: Orders MR cervical spine wo con Today G57.93 - Unspecified mononeuropathy of bilateral lower limbs, M47.812 - Spondylosis without myelopathy or radiculopathy, cervical region, M54.12 - Radiculopathy, cervical region, R27.0 - Ataxia, unspecified Medications: New baclofen 10 mg PO BID 60 tabs 0RF muscle spasms M62.838 - Other muscle spasm Coding Level of Care Code New Pt Level 4 (15445) Diagnoses Neuropathic pain, leg, bilateral G57.93 Cervical radiculopathy M54.12 Cervical spondylosis M47.812 Ataxia R27.0 Muscle spasms of neck M62.838
[2024-08-09 09:38] VITALS: BP 145/76; PULSE 79; O2SAT 97; BMI 36.8
--- OUTSIDE RECORDS SUMMARY | 2024-08-09 10:09 | XMS_ITS | Clinical Summary ---
Author Organization [address] Address [address] [place] [address] Phone Care Team Providers Care Public Records Researcher Name Role Phone Unavailable Primary Care Provider [...] 74 11/23/2022 11:25 PM EDT Temperature 36.9 C (98.4 F) 11/23/2022 11:25 PM EDT Respiratory Rate 18 11/23/2022 11:25 PM EDT [...] screening 2011 Colon cancer screening, Colonoscopy 06/03/2016 Pneumococcal Vaccine (50+ ye ars) (1 of 1 - PCV) 06/03/2021 Shingles vaccine (Shingrix) (1 of 2 - Shingrix (RZV) 2 Dose Standard Series) 06/03/2021 Covid-19 vaccine series (1 - season) 2023 Influenza vaccine 10/10/2024 Diabetes screening 11/24/2025 11/24/2022 RSV Immunization (1 - 1-dose 75+ series) [...] - 110 mg/dL 11/24/2022 1:02 AM EDT [facility] Comment: Non-fastin-110 mg/dL Fasting (minimum 6 hrs): 65-99 mg/dL BUN 16 7 - 18 mg/dL 11/24/2022 1:02 AM EDT [facility] Creatinine 0.99 0.70 - 1.30 mg/dL 11/24/2022 1:02 AM EDT [facility] Sodium 140 136 - 145 mmol/L 11/24/2022 1:02 AM EDT [facility] Potassium 3.7 3.5 - 5.1 mmol/L 11/24/2022 1:02 AM EDT [facility] Chloride 106 98 - 107 mmol/L 11/24/2022 1:02 AM EDT [facility] CO2 27 21 - 32 mmol/L 11/24/2022 1:02 AM EDT [facility] Anion Gap 7 5 - 15 mmol/L 11/24/2022 1:02 AM EDT + [facility] Calcium 8.4(L) 8.5 - 10.1 mg/dL 11/24/2022 1:02 AM EDT [facility] eGFR (Creatinine) >60 >=60 mL/min/1.7 3m2 11/24/2022 1:02 AM EDT [facility] Comment: Values < 60 mL/min/1.73 m2 may indicate CKD if present for more than three months AND creatinine is at steady state. The eGFR provides a rough estimate of kidney function. On 09/24/21 all [facility] and [facility] began using a [id number] formula for estimating GFR called CKD-EPI Creatinine 2020. This equation reports eGFR based on creatinine, patient age, clinical sex, and is standardized to a body surface area of 1.73 m2. For the same creatinine, this new race-free eGFR will be lower than prior reported Black eGFR results and higher than prior Non-Black eGFR results. For further guidance, please refer to the CKD: Adult Metal Furniture Panel Coverer Signature pathway. Blood Venipuncture / Unknown 11/24/2022 12:20 AM EDT 11/24/2022 12:30 AM EDT Lawrence Gallegos MD LAB BLOOD ORDERABLES Final Res ult [facility] [address] [place] [address] from Last 3 Months or Most Recently Relevant to Health Maintenance Insurance COMMERCIAL GENERIC COMMERCIAL GENERIC COMMERCIAL GENERIC
--- OUTSIDE RECORDS SUMMARY | 2024-08-09 10:09 | XMS_ITS | Patient Health Record ---
Author Organization [facility] Address [address] [place] [address] Care Team Providers Care Disaster Recovery Coordinator Name Role Phone KemiRobyn ring Unavailable [phone] Reason For Referral No Information Problems No Known Problems Plan Of Treatment No Information Insurance Providers Payer Name Payer Address Payer Phone Subscriber Number Group Number Insured Name Patient Relationship to Insured Coverage Start Date Coverage End Date [facility] All Others [address] [place] [address] [id number] Lawrence Bustamante Self - patient is the insured Medical (General) History Medical History History ICD Code Back,Hip,and Knee pain Chicken pox Surgical History Surgery Date(Month/Year) right hand 2007
== END 2024-08-09 10:22 | disposition home or self-care (01) ==
LOC: HO.PMC 09:29
PROVIDERS: PCP Nurse Practitioner Family; Referring Provider Nurse Practitioner Family; Visit Provider Nurse Practitioner Family
DX: G57.93 Unspecified mononeuropathy of bilateral lower limbs (principal); M54.12 Radiculopathy, cervical region; M47.812 Spondylosis without myelopathy or radiculopathy, cervical region; R27.0 Ataxia, unspecified; M62.838 Other muscle spasm
CPT/HCPCS: 99204

== ENCOUNTER 2024-08-25 13:39 | Outpatient (AMB) | payer OTHER, SELFPAY ==
--- NOTE | 2024-08-25 13:56 | HO.SPINEOV ---
Intake Visit Reasons: ongoing neck pain Intake Note: Mr. Bustamante is here today c/o ongoing neck pain. Chief Deputy Required: No Allergies No Known Allergies Allergy (Verified 08/09/24 09:35) Assessment & Plan Assessment & Plan (1) Cervical disc disorder: Code(s): M50.90 - Cervical disc disorder, unspecified, unspecified cervical region Category: Medical Plan Mr Bustamante came back in today for follow-up. He is a patient known to us from a diagnosis of suspected peripheral neuropathy or polyneuropathy, possibly related to Lyme disease that he had last year. He has been seen at the [facility] and underwent an injection and he is about 50% better in terms of that overall situation. What he is dealing with now is a separate situation that has been going on for years. 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 He does not have any focal radiculopathy radiating down the arms. He has a clicking noise in his neck when he moves it in a particular way. He has tried [id number] pain medications but these things really do not do much for him. He has not done any physical therapy. No cortisone shots in the neck yet. Upper extremity neurological exam unremarkable. He did undergo a cervical MRI done at [facility] showing what looks like severe collapse of the disc space at C5-6, left C4-5 foraminal stenosis and right C6-7 foraminal stenosis. Overall I think the C5-6 disc is most likely a bigger issue when it comes to strictly neck pain. It seems to be collapsed and almost [id number]. I am going to get a set of flexion-extension x-rays just to get a better look at the interaction of the vertebral bodies and motion. I am going to review the x-rays and MRI with Dr. Villa, I think he might be willing to offer him an anterior cervical fusion if the disc degeneration of the x-ray looks severe enough. We did briefly talk about what that procedure was in the recovery. In the interim however, he has not even done physical therapy yet and with his insurance [facility] we know they will not let him consider surgery unless he is at least done 6 weeks of dedicated PT. I gave him a referral for that. I told him if he wanted to do an injection with the your office that is also not a bad idea to do before considering surgery. Total amount of time spent in this visit was 20 minutes in discussion of symptoms, cervical MRI imaging results and subsequent plan of care Breezy Villa MD,PhD [facility] Orders: Orders XR cervical spine 4V Today M50.90 - Cervical disc disorder, unspecified, unspecified cervical region PT Evaluation and Treatment Today M50.90 - Cervical disc disorder, unspecified, unspecified cervical region Coding Level of Care Code Est Pt Level 3 (93854) Diagnoses Cervical disc disorder M50.90
--- OUTSIDE RECORDS SUMMARY | 2024-08-25 14:21 | XMS_ITS ---
Author Name [facility] Results Test Name/Text Value Interpretation Date Range Source HCO3 SerPl-sCnc 27.0 mmol/L Normal 11/24/2022 21 - 32 [facility] G[facility]/BSA.pred SerPlBld DWA-QEB-PbGJds >60.0 mL/min/1.73m2 Normal 11/24/2022 - [facility] Glucose SerPl-mCnc 164.0 mg/dL Above high normal 11/24/2022 65 - 110 [facility] Sodium SerPl-sCnc 140.0 mmol/L Normal 11/24/2022 136 - 14 5 [facility] Calcium SerPl-mCnc 8.4 mg/dL Below low normal 11/24/2022 8.5 - 10.1 [facility] Creat SerPl-mCnc 0.99 mg/dL Normal 11/24/2022 0.7 - 1.3 Y [facility] Anion Gap3 SerPl-sCnc 7.0 mmol/L Normal 11/24/2022 5 - 15 [facility] Chloride SerPl-sCnc 106.0 mmol/L Normal 11/24/2022 98 - 1 07 [facility] Potassium SerPl-sCnc 3.7 mmol/L Normal 11/24/2022 3.5 - 5 .1 [facility] BUN SerPl-mCnc 16.0 mg/dL Normal 11/24/2022 7 - 18 [facility] Lymphocytes # Bld Auto 2.69 x 1000/uL Normal 11/24/2022 0.6 - 3.7 [facility] Monocytes/leuk NFr Bld Auto 7.5 % Normal 11/24/2022 4 - 12 [facility] MCHC RBC Auto-mCnc 33.9 g/dL Normal 11/24/2022 31 - 36 [facility] Lymphocytes/leuk NFr Bld Auto 24.7 % Normal 11/24/2022 17 - 50 [facility] Platelet # Bld Auto 256.0 x1000/uL Normal 11/24/2022 150 - 420 [facility] MCH RBC Qn Auto 29.7 pg Normal 11/24/2022 27 - 33 [facility] Eosinophil/leuk NFr Bld Auto 2.6 % Normal 11/24/2022 0 - 5 [facility] BKR WAM ABSOLUTE NEUTROPHIL COUNT. 7.02 x 1000/uL Normal 11/24/2022 2 - 7.6 [facility] Eosinophil # Bld Auto 0.28 x 1000/uL Normal 11/24/2022 0 - 1 [facility] PMV Bld Auto 10.4 fL Normal 11/24/2022 8 - [address] Monocytes # Bld Auto 0.82 x 1000/uL Normal 11/24/2022 0 - 1 [facility] RDW RBC Auto-Rto 12.7 % Normal 11/24/2022 11 - 15 [facility] Hgb Bld-mCnc 14.6 g/dL Normal 11/24/2022 13.2 - 17.1 [facility] Imm Granulocytes/leuk NFr Bld Auto 0.3 % Normal 11/24/2022 0 - 1 [facility] WBC # Bld Auto 10.9 x1000/uL Normal 11/24/2022 4 - 11 [facility] Neutrophils/leuk NFr Bld Auto 64.4 % Normal 11/24/2022 39 - 72 [facility] RBC # Bld Auto 4.91 M/uL Normal 11/24/2022 4 - 6 [facility] BKR WAM BASOPHIL ABSOLUTE COUNT. 0.05 x 1000/uL Normal 11/24/2022 0 - 1 [facility] nRBC/100 WBC Bld Auto-Rto 0.0 % Normal 11/24/2022 0 - 1 [facility] Hct VFr Bld Auto 43.1 % Normal 11/24/2022 38.5 - 50 [facility] Imm Granulocytes # Bld Auto 0.03 x 1000/uL Normal 11/24/2022 0 - 0.3 [facility] MCV RBC Auto 87.8 fL Normal 11/24/2022 80 - [address] Basophils/leuk NFr Bld Auto 0.5 % Normal 11/24/2022 0 - 1.4 [facility] B burgdor IgG+IgM Ser Ql Negative Normal 11/24/2022 - [facility] BKR REFLEX URINE CULTURE See Comment Normal 11/24/2022 [facility] BKR URINE SQUAMOUS EPITHELIAL CELLS, UA (NUMERIC) <1.0 /HPF Normal 11/24/2022 0 - 5 [facility] BKR RBC/HPF INSTRUMENT 43.0 /HPF Above high normal 11/24/2022 0 - 2 [facility] BKR WBC/HPF INSTRUMENT 3.0 /HPF Normal 11/24/2022 0 - 5 [facility] BKR BACTERIA, UA Rare Normal 11/24/2022 - [facility] pH Ur Strip.auto 6.0 Normal 11/24/2022 5.5 - 7.5 [facility] Urobilinogen Ur Strip-mCnc <2.0 mg/dL Normal 11/24/2022 - [facility] Hgb Ur Ql Strip.auto 3+ Abnormal 11/24/2022 - [facility] Glucose Ur Strip.auto-mCnc 4+ Abnormal 11/24/2022 - [facility] Nitrite Ur Ql Strip.auto Negative Normal 11/24/2022 - [facility] Prot Ur Strip.auto-mCnc Negative Normal 11/24/2022 - [facility] WBC # Ur Strip Negative Normal 11/24/2022 - [facility] Ketones Ur Strip.auto-mCnc Negative Normal 11/24/2022 - [facility] Bilirub Ur Ql Strip.auto Negative Normal 11/24/2022 - [facility] Sp Gr Ur Refract.auto 1.019 Normal 11/24/2022 1.005 - 1.03 [facility] Clarity Ur Refract.auto Clear Normal 11/24/2022 - [facility] Color Ur Auto Yellow Normal 11/24/2022 - [facility] Encounters Encounter Type Encounter Reason Primary Diagnosis Location Date Emergency Renal colic Renal colic [facility] 11/23/2022 Care Team Organization Name Specialty Phone Email Start Date End Da eden [facility] 1 09/28/2023 [facility] 11/23/2022
--- OUTSIDE RECORDS SUMMARY | 2024-08-25 14:21 | XMS_ITS | Clinical Summary ---
Author Organization [address] Address [address] [place] [address] Phone Care Team Providers Care Bilingual Loan Processor Name Role Phone Unavailable Primary Care Provider [...] - 110 mg/dL 11/24/2022 1:02 AM EDT [facility] Comment: Non-fastin-110 mg/dL Fasting (minimum 6 hrs): 65-99 mg/dL BUN 16 7 - 18 mg/dL 11/24/2022 1:02 AM EDT [facility] Creatinine 0.99 0.70 - 1.30 mg/dL 11/24/2022 1:02 AM EDT [facility] Sodium 140 136 - 145 mmol/L 11/24/2022 1:02 AM EDT [facility] Potassium 3.7 3.5 - 5.1 mmol/L 11/24/2022 1:02 AM EDT [facility] Chloride 106 98 - 107 mmol/L 11/24/2022 1:02 AM EDT [facility] CO2 27 21 - 32 mmol/L 11/24/2022 1:02 AM EDT [facility] Anion Gap 7 5 - 15 mmol/L 11/24/2022 1:02 AM EDT + [facility] Calcium 8.4(L) 8.5 - 10.1 mg/dL 11/24/2022 1:02 AM EDT [facility] eGFR (Creatinine) >60 >=60 mL/min/1.7 3m2 11/24/2022 1:02 AM EDT [facility] Comment: Values < 60 mL/min/1.73 m2 may indicate CKD if present for more than three months AND creatinine is at steady state. The eGFR provides a rough estimate of kidney function. On 09/24/21 all [facility] Clinical Labs and [facility] began using a hbt-mraa-hkavy formula for estimating GFR called CKD-EPI Creatinine 2020. This equation reports eGFR based on creatinine, patient age, clinical sex, and is standardized to a body surface area of 1.73 m2. For the same creatinine, this new race-free eGFR will be lower than prior reported Black eGFR results and higher than prior Non-Black eGFR results. For further guidance, please refer to the CKD: Adult Consulting Analyst Signature pathway. Blood Venipuncture / Unknown 11/24/2022 12:20 AM EDT 11/24/2022 12:30 AM EDT Lawrence Gallegos MD LAB BLOOD ORDERABLES Final Res ult [facility] [address] [place] [address] from Last 3 Months or Most Recently Relevant to Health Maintenance Insurance COMMERCIAL GENERIC COMMERCIAL GENERIC COMMERCIAL GENERIC
== END 2024-08-25 14:36 | disposition home or self-care (01) ==
LOC: HO.HNS 13:40
PROVIDERS: PCP Nurse Practitioner Family; Visit Provider Physician Assistant
DX: M50.90 Cervical disc disorder, unspecified, unspecified cervical region (principal)
CPT/HCPCS: 99213

== ENCOUNTER 2024-08-25 13:39 | Outpatient (REF) | payer OTHER, SELFPAY | END 2024-08-25 13:40 | disposition home or self-care (01) | LOC: HO.HOSX 13:39 | PROVIDERS: PCP Nurse Practitioner Family; Visit Provider Physician Assistant | DX: Z13.89 Encounter for screening for other disorder (principal) ==

== ENCOUNTER 2024-09-07 07:59 | Outpatient (AMB) | payer OTHER, SELFPAY ==
--- OUTSIDE RECORDS SUMMARY | 2024-09-07 08:03 | XMS_ITS | Clinical Summary ---
Author Organization [address] Address [address] [place] [address] Phone Care Team Providers Care Analytical Data Miner Name Role Phone Unavailable Primary Care Provider [...] - 110 mg/dL 11/24/2022 1:02 AM EDT [facility] Comment: Non-fastin-110 mg/dL Fasting (minimum 6 hrs): 65-99 mg/dL BUN 16 7 - 18 mg/dL 11/24/2022 1:02 AM EDT [facility] Creatinine 0.99 0.70 - 1.30 mg/dL 11/24/2022 1:02 AM EDT [facility] Sodium 140 136 - 145 mmol/L 11/24/2022 1:02 AM EDT [facility] Potassium 3.7 3.5 - 5.1 mmol/L 11/24/2022 1:02 AM EDT [facility] Chloride 106 98 - 107 mmol/L 11/24/2022 1:02 AM EDT [facility] CO2 27 21 - 32 mmol/L 11/24/2022 1:02 AM EDT [facility] Anion Gap 7 5 - 15 mmol/L 11/24/2022 1:02 AM EDT + [facility] Calcium 8.4(L) 8.5 - 10.1 mg/dL 11/24/2022 1:02 AM EDT [facility] eGFR (Creatinine) >60 >=60 mL/min/1.7 3m2 11/24/2022 1:02 AM EDT [facility] Comment: Values < 60 mL/min/1.73 m2 may indicate CKD if present for more than three months AND creatinine is at steady state. The eGFR provides a rough estimate of kidney function. On 09/24/21 all [facility] Clinical Labs and [facility] began using a [id number] formula for estimating GFR called CKD-EPI Creatinine 2020. This equation reports eGFR based on creatinine, patient age, clinical sex, and is standardized to a body surface area of 1.73 m2. For the same creatinine, this new race-free eGFR will be lower than prior reported Black eGFR results and higher than prior Non-Black eGFR results. For further guidance, please refer to the CKD: Adult Post Splitter Signature pathway. Blood Venipuncture / Unknown 11/24/2022 12:20 AM EDT 11/24/2022 12:30 AM EDT Lawrence Gallegos MD LAB BLOOD ORDERABLES Final Res ult [facility] [address] [place] [address] from Last 3 Months or Most Recently Relevant to Health Maintenance Insurance COMMERCIAL GENERIC COMMERCIAL GENERIC COMMERCIAL GENERIC
--- OUTSIDE RECORDS SUMMARY | 2024-09-07 08:03 | XMS_ITS | Patient Health Record ---
Author Organization [facility] Address [address] [place] [address] Care Team Providers Care Storage Manager Name Role Phone KemiRobyn ring Unavailable [phone] Reason For Referral No Information Problems No Known Problems Plan Of Treatment No Information Insurance Providers Payer Name Payer Address Payer Phone Subscriber Number Group Number Insured Name Patient Relationship to Insured Coverage Start Date Coverage End Date [facility] All Others [address] [place] [address] [id number] Lawrence Bustamante Self - patient is the insured Medical (General) History Medical History History ICD Code Back,Hip,and Knee pain Chicken pox Surgical History Surgery Date(Month/Year) right hand 2007
--- OUTSIDE RECORDS SUMMARY | 2024-09-07 08:03 | XMS_ITS | Clinical Summary ---
Author Organization [facility] Address [address] [place] [address] Phone Care Team Providers Care Log Buyer Name Role Phone Aleksandra Gee NP Primary Care Provider Allergies No known active allergies Medications No known medications Social History Tobacco Use Types Packs/Day Years Used Date Smoking Tobacco: Never Smokeless Tobacco: Never Alcohol Use Standard Drinks/Week Comments Not Currently 0 (1 standard drink = 0.6 oz pur e alcohol) Education Answer Date Recorded Are you interested in more education? Not on faith e 06/06/2022 Are you concerned about learning? Not on file 06/06/2022 No 06/06/2022 No 06/06/2022 Digital Access Answer Date Recorded No 07/05/2022 No 07/05/2022 Reliable internet access at home? Not on file 07/05/2022 Device with a working camera? Not on file Sex and Gender Information Value Date Recorded Sex Assigned at Male 08/10/2018 7:56 PM EDT Legal Sex Male 9:33 PM EDT Gender Identity Male 08/10/2018 7:56 PM EDT Sexual Orientation Not on file Last Filed Vital Signs Vital Sign Reading Time Taken Comments Blood Pressure 138/75 08/10/2018 9:36 PM EDT Pulse 69 08/10/2018 9:36 PM EDT Temperature 36 C (96.8 F) 08/10/2018 7:56 PM EDT Respiratory Rate 17 08/10/2018 9:36 PM EDT Oxygen Saturation 100% 08/10/2018 9:36 PM EDT Inhaled Oxygen Concentration - - Weight 147.4 kg (325 lb) 08/10/2018 7:56 PM EDT Height 190.5 cm (6' 3 ) 08/10/2018 7:56 PM EDT Body Mass Index 40.62 08/10/2018 7:56 PM EDT Plan of Treatment Health Maintenance Due Date Last Done Comments LIPID PANEL 1971 DEPRESSION SCREENING 1983 HEPATITIS C SCREENING 06/03/1989 HIV ONE-TIME SCREENING (18-6 5 YEARS) 06/03/1989 COLOGUARD 06/03/2016 COLONOSCOPY 06/03/2016 COLORECTAL CANCER SCREENING 06/03/2016 FIT TEST 06/03/2016 FOBT 06/03/2016 SIGMOIDOSCOPY 06/03/2016 VIRTUAL COLONOSCOPY 06/03/2016 PNEUMOCOCCAL VACCINES (50+ years) (1 of 1 - PCV) 06/03/2021 ZOSTER VACCINES (1 of 2) 06/03/2021 COVID-19 VACCINE (3 - 2023-2 5 season) 2023 07/05/2020, 06/07/2020 Adult Td,Tdap Booster 04/12/2025 04/13/2015 SMOKING STATUS SCREENING (On ce After 26 Yrs) Completed 08/10/2018 HEPATITIS A VACCINES Aged Out No long er eligible based on patient's age to complete this topic HIB VACCINES Aged Out No longer eligi ble based on patient's age to complete this topic MENINGOCOCCAL VACCINES (ACWY) Aged Out No longer eligible based on patient's age to complete this topic MENINGOCOCCAL VACCINES (B) Aged Out N o longer eligible based on patient's age to complete this topic Medical Devices Not on file Insurance [facility] Care Teams Log Buyer Relationship Specialty Start Date End Date Aleksandra Gee NP [address] [place] [id number] [email or web address] PCP - General Family Medicine 08/10/18 Additional Source Comments The information contained in this document represents components of the legal health record. It is not the complete legal health record.[facility]
--- NOTE | 2024-09-07 08:05 | A.OFFPC_ITS ---
Vital Signs 09/07/24 08:07 Height 6 ft 3 in Weight 298 lb BMI 37.2 BP 138/88 Blood Pressure Location Lt brachial Position Sitting Respiration 16 Pulse 69 Pulse Source Pulse Oximeter Pulse Oximetry (%) 97 Oxygen Delivery Method Room Air Intake Visit Reasons: 3 months f/up Nanoscience Technician Required: No Costume Shop Manager: Not Required per policy Accompanied by: Self / Same As Patient Allergies No Known Allergies Allergy (Verified 09/07/24 08:42) Medication List - Last Reconciled 09/07/24 by VINAY Carpenter- alprazolam 0.5 mg PO BEDTIME PRN baclofen 10 mg PO BID 90 days blood-glucose sensor ([employer] Faizan 3 Sensor device) Test blood sugar 4 times per day buspirone 5 mg PO BID 90 days empagliflozin 25 mg PO QAM gabapentin 800 mg (2 x 400 mg) PO TID 30 days ibuprofen (Advil) 400 mg PO Q8H PRN magnesium oxide 400 mg PO DAILY metformin 1,000 mg PO BID 90 days morphine 15 mg PO BID PRN 5 days tadalafil (Cialis) 5 mg PO DAILY 90 days Tobacco use date assessed: 08/04/24 Dental Screening Dental Screen Date: 08/04/24 Did you have a dental visit in the last 12 months?: No Did you have a dental problem in the last 6 months where you did not have access to dental care?: No Was dental information given to patient?: Patient declined HPI 3 months f/up HPI Details Chief Complaint The patient presents with neuropathy and obesity. History of Present Illness The patient is a 54-year-old male presenting with neuropathy and obesity. The neuropathy is primarily in his feet and is thought to be related to his back issues. He reports positive sensation and intact feet bilaterally, with good circulation, motor, and sensory function. The patient is also addressing obesity, although he is currently losing weight. Plans include monitoring his A1c, kidney function, and liver function to evaluate his health status. He uses a sensor for glucose monitoring, and his A1c is expected to be well-controlled. Social History Health Maintenance - Eye exam is due for preventative care. Review of Systems - Neurological: Reports neuropathy in fe et Physical Exam General: Cooperative, healthy appearing, comfortable, no acute distress, well developed, and obese Orientation: Patient oriented x3 Limitations: No limitations Head: Normal to inspection Ears: Hearing grossly normal bilaterally Nose: Normal external nose present Face and sinus: Normal facial exam Eyes: Appearance normal, both eyes and all related structures Neck: Normal visual inspection and Yes full ROM Respiratory: Normal respiratory effort and able to speak in complete sentences. Clear to auscultation bilaterally Cardiovascular: Regular rate and rhythm. Normal S1 and S2 GI: Normal to inspection. Soft to palpation and nontender Skin: No rashes or lesions noted Neuro: Patient oriented x3, reports some neuropathy, mostly to his feet Extremities: Normal to inspection, positive sensation, use of monofilament, feet are intact bilaterally, good CMS Results Plan The patient will be scheduled for an eye exam as part of his preventative care measures. Laboratory tests will be conducted to evaluate his A1c, kidney function, and liver function. The patient is expected to have a well-controlled A1c due to the use of a glucose monitoring sensor. Discussion Notes I discussed with the patient the importance of scheduling an eye exam and the need for laboratory tests to monitor his A1c, kidney function, and liver function. We also talked about his use of a glucose monitoring sensor and the expectation of a well-controlled A1c. Patient Instructions - Schedule an eye exam as soon as aubree reynolds. - Follow up with lab tests for A1c, kidn ey function, and liver function. 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 1. Little interest or pleasure in doing things: not at all 2. Feeling down, depressed, or hopeless: not at all 3. Trouble falling or staying asleep, or sleeping too much: nearly every day 4. Feeling tired or having little energy: nearly every day 5. Poor appetite or overeating: not at all 6. Feeling bad about yourself - or that you are a failure or have let yourself or your family down: not at all 7. Trouble concentrating on things, such as reading the newspaper or watching television: several days 8. Moving or speaking so slowly that other people could have noticed. Or the opposite - being so fidgety or restless that you have been moving around a lot more than usual: several days 9. Thoughts that you would be better off or of hurting yourself in some way: not at all Total score: 8 Depression Screening Interpretation: Positive Depression Screening Follow-up: Existing condition and Declines treatment Depression Screening Done: Yes 93891 - PHQ-9 Billing: Yes Source: Developed by Drs. Emmanuel Harrison, Tonya Sargent, Brett Wadsworth and colleagues, with an educational chicho from [employer]. Thrive Questionnaire Date Thrive assessed: 05/03/24 I am a: Patient What is your living situation today?: I have a steady place to live Within the past 12 months, did the food you bought not last and you didn't have the money to get more?: I choose not to answer this question Within the past 12 months, did you worry whether your food would run out before you got money to buy more?: I choose not to answer this question Do you have trouble paying for medicines?: I choose not to answer this question Do you have trouble getting transportation to medical appointments?: I choose not to answer this question Do you have trouble paying your heating and electricity bill?: I choose not to answer this question Do you have trouble taking care of your child, family member or friend?: I choose not to answer this question Do you have trouble with day-to-day activities such as bathing, preparing meals, shopping, managing finances, etc.?: I choose not to answer this question Are you currently unemployed and looking for a job?: I choose not to answer this question Are you interested in more education?: I choose not to answer this question Please select the resources that you would like help with: None Currently or been in a relationship where the following occur: I choose not to answer THRIVE Score: 0 Physical exam (Primary Care) Vital Signs: Last Vital Signs Pulse 69 09/07/24 08:07 Resp 16 09/07/24 08:07 BP 138/88 09/07/24 08:07 Pulse Ox 97 09/07/24 08:07 Oxygen Delivery Method Room Air 09/07/24 08:07 BMI result Body Mass Index 37.2 Tobacco/Smoking Status: Tobacco use Status Tobacco use date assessed 08/04/24 09/07/24 08:07 Patient Tobacco Use Status Former Tobacco user 09/07/24 08:07 Tobacco use type Cigarette 09/07/24 08:07 e-Cigarette/Vaping Use Never Used 09/07/24 08:07 PHQ-9: PHQ-9 Score PHQ-9: Total score 8 09/07/24 08:12 Depression Screening Interpretation: Positive Depression Screening Follow-up: Existing condition and Declines treatment Thrive Assessment: Date of Thrive Assessment Date Thrive assessed 05/03/24 09/07/24 08:07 Currently or been in a relationship where the following occur: I choose not to answer Coding Level of Care Code Est Pt Level 3 (99605) Diagnoses Diabetes E11.9 Additional Codes PHQ-9 - 22823 - PHQ-9 Billing: Yes ([id number]) Assessment & Plan Assessment & Plan (1) Diabetes: Code(s): E11.9 - Type 2 diabetes mellitus without complications Category: Medical Plan .
[2024-09-07 08:07] VITALS: BP 138/88; PULSE 69; RESP 16; O2SAT 97; BMI 37.2
== END 2024-09-07 09:28 | disposition home or self-care (01) ==
LOC: HO.HMCC 08:01
PROVIDERS: PCP Nurse Practitioner Family; Visit Provider Nurse Practitioner Family
DX: E11.9 Type 2 diabetes mellitus without complications (principal)

== ENCOUNTER → 2024-09-07 07:59 | Outpatient (BNVA) | payer OTHER, SELFPAY | PROVIDERS: PCP Nurse Practitioner Family; Visit Provider Nurse Practitioner Family | DX: E11.40 Type 2 diabetes mellitus with diabetic neuropathy, unspecified (principal); E66.9 Obesity, unspecified; Z68.37 Body mass index [BMI] 37.0-37.9, adult | CPT/HCPCS: 96127 ==

== ENCOUNTER 2024-09-30 10:49 | Day surgery (SDC) | payer OTHER, SELFPAY ==
--- OUTSIDE RECORDS SUMMARY | 2024-09-08 15:31 | XMS_ITS | Clinical Summary ---
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 Name Role Phone Unavailable Primary Care Provider [...] - 110 mg/dL 11/24/2022 1:02 AM EDT [facility] Comment: Non-fastin-110 mg/dL Fasting (minimum 6 hrs): 65-99 mg/dL BUN 16 7 - 18 mg/dL 11/24/2022 1:02 AM EDT [facility] Creatinine 0.99 0.70 - 1.30 mg/dL 11/24/2022 1:02 AM EDT [facility] Sodium 140 136 - 145 mmol/L 11/24/2022 1:02 AM EDT [facility] Potassium 3.7 3.5 - 5.1 mmol/L 11/24/2022 1:02 AM EDT [facility] Chloride 106 98 - 107 mmol/L 11/24/2022 1:02 AM EDT [facility] CO2 27 21 - 32 mmol/L 11/24/2022 1:02 AM EDT [facility] Anion Gap 7 5 - 15 mmol/L 11/24/2022 1:02 AM EDT + [facility] Calcium 8.4(L) 8.5 - 10.1 mg/dL 11/24/2022 1:02 AM EDT [facility] eGFR (Creatinine) >60 >=60 mL/min/1.7 3m2 11/24/2022 1:02 AM EDT [facility] Comment: Values < 60 mL/min/1.73 m2 may indicate CKD if present for more than three months AND creatinine is at steady state. The eGFR provides a rough estimate of kidney function. On 09/24/21 all [facility] Clinical Labs and [facility] began using a pdo-miyx-zgumh formula for estimating GFR called CKD-EPI Creatinine 2020. This equation reports eGFR based on creatinine, patient age, clinical sex, and is standardized to a body surface area of 1.73 m2. For the same creatinine, this new race-free eGFR will be lower than prior reported Black eGFR results and higher than prior Non-Black eGFR results. For further guidance, please refer to the CKD: Adult Actuary Manager Signature pathway. Blood Venipuncture / Unknown 11/24/2022 12:20 AM EDT 11/24/2022 12:30 AM EDT Lawrence Gallegos MD LAB BLOOD ORDERABLES Final Res ult [facility] [address] [place] [address] from Last 3 Months or Most Recently Relevant to Health Maintenance Insurance COMMERCIAL GENERIC COMMERCIAL GENERIC COMMERCIAL GENERIC
--- OUTSIDE RECORDS SUMMARY | 2024-09-08 15:31 | XMS_ITS | Patient Health Record ---
Author Organization [facility] Address [address] [place] [address] Care Team Providers Care Handkerchief Folder Name Role Phone KemiRobyn ring Unavailable [phone] Reason For Referral No Information Problems No Known Problems Plan Of Treatment No Information Insurance Providers Payer Name Payer Address Payer Phone Subscriber Number Group Number Insured Name Patient Relationship to Insured Coverage Start Date Coverage End Date [facility] All Others [address] [place] [address] [id number] Lawrence Bustamante Self - patient is the insured Medical (General) History Medical History History ICD Code Back,Hip,and Knee pain Chicken pox Surgical History Surgery Date(Month/Year) right hand 2007
--- OUTSIDE RECORDS SUMMARY | 2024-09-08 15:31 | XMS_ITS | Clinical Summary ---
Author Organization [facility] Address [address] [place] [address] Phone Care Team Providers Care Pediatric Orthodontist Name Role Phone Aleksandra Gee NP Primary [...] topic Medical Devices Not on file Insurance [facility] H[facility] H[facility] Care Teams Pediatric Orthodontist Relationship Specialty Start Date End Date Aleksandra Gee NP [address] [place] [phone] [email or web address] PCP - General Family Medicine 08/10/18 Additional Source Comments The information contained in this document represents components of the legal health record. It is not the complete legal health record.[facility]
--- NOTE | 2024-09-28 13:50 | HO.ANESPROP2 ---
Documented by User: Kim Kumar NP 09/28/24 14:47 HPI - Anesthesia Eval Consult details Narrative: 54yo M for Caudal Epidural Steroid Injection with Catheter 06/2024 [facility] [place]. Bifasicular block on EKG, otherwise reassuring w/u. Eval'd by PCP for f/u - referred to cardiology. Appointment sched 12/2024. Per PCP - repeat EKG preop and OK to proceed if no concerning changes in cardiac status Anesthesia Pre-Procedure Meds Is the patient on any of the following meds?: SGLT2 Inhib PMFSH Active Problems Active Problems: All Active Problems Cervical disc disorder (Acute) Muscle spasms of neck (Acute) Ataxia (Acute) Cervical spondylosis (Acute) Cervical radiculopathy (Acute) Anxiety (Acute) Lumbar degenerative disc disease (Acute) Lumbar stenosis (Acute) Abnormal CT scan, lumbar spine (Acute) Neuropathic pain, leg, bilateral (Acute) Diabetes (Acute) Bladder wall thickening (Acute) Urinary urgency (Acute) Urinary dribbling (Acute) Erectile dysfunction associated with type 2 diabetes mellitus (Acute) Nephrolithiasis (Acute) Anxiety about health (Acute) Encounter for routine adult physical exam with abnormal findings (Acute) Vasectomy evaluation (Acute) Leg cramps (Acute) Lateral epicondylitis, right elbow (Acute) Cough (Acute) Chills (Acute) Fatty liver (Acute) Right elbow pain (Acute) Physical exam (Acute) Screening PSA (prostate specific antigen) (Acute) Diabetes (Acute) Screening for colon cancer (Acute) Family history of cardiovascular disorder (Acute) Chest discomfort (Acute) Liver cyst (Acute) Obesity (BMI 35.0-39.9 without comorbidity) (Acute) Pre-op examination (Acute) Cellulitis of arm, left (Acute) Tick bite (Acute) Blood typing encounter (Acute) Past Medical History Medical History Neuropathic pain, leg, bilateral Cough Chills Diabetes Erectile dysfunction Family History Family History Sister Mental health disorder Sister Mental health disorder Mother Mental health disorder Family history of problems with anesthesia: No Surgical History Surgical History Hx of colonoscopy History of Problems with Anesthesia: No Social History Social History Housing: House Are you a primary customer care voice consultant to a significant other at home: No Do you presently have visiting nurse or other home services: No Alcohol intake: never Comment: medicated Patient Tobacco Use Status: Former Tobacco user Tobacco use type: Cigarette e-Cigarette/Vaping Use: Never Used Second Hand Smoke Exposure: No Use of substances other than those prescribed or required for medical reasons: No Have you been hit, kicked, punched, or otherwise hurt by someone within the past year? 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 Current occupational exposures/hazards: No Cognitive needs: No Hearing needs: No Vision needs: No Meds Allergies Allergy/AdvReac Type Severity Reaction Status Date / Time No Known Allergies Allergy Verified 09/07/24 08:42 Home Medications ?Medication ?Instructions ?Recorded ?Confirmed ?Last Taken ?Type ibuprofen 200 mg tablet (Advil) 400 mg PO Q8H PRN Pain 10/01/22 09/30/24 Unknown History magnesium oxide 400 mg PO DAILY 11/10/23 09/30/24 Unknown History alprazolam 0.5 mg tablet 0.5 mg PO BEDTIME PRN Anxiety 08/04/24 09/30/24 Unknown History Exam Pertinent Lab Results Pertinent Lab Results: Laboratory Tests 08/01/24 16:08 WBC 8.7 Hgb 15.6 Hct 46.9 Plt Count 247 Sodium 139 Potassium 3.9 D Chloride 105 Carbon Dioxide 26 BUN 13 Creatinine 0.76 Narrative Narrative: EKG 06/2024 Vent. Rate : 81 BPM Atrial Rate : 81 BPM P-R Int : 146 ms QRS Dur : 128 ms QT Int : 392 ms P-R-T Axes : 23 -50 22 degrees QTcB Int : 455 ms Normal sinus rhythm Right bundle branch block Left anterior fascicular block Bifascicular block Abnormal ECG No previous ECGs available Assessment and Plan Assessment Anesthesia Assessment: Chart Reviewed Final Anesthetic Review Family History of Problems with Anesthesia: No History of Problems with Anesthesia: No Documented by User: Diogenes Gray MD 09/30/24 11:50 HPI - Anesthesia Eval Anesthesia Pre-Procedure Meds If yes to any meds - educate patient: Pt education - increased risk of aspiration and/or euvolemic [facility] Past Medical History Medical History Neuropathic pain, leg, bilateral Cough Chills Diabetes Erectile dysfunction Functional capacity: independent ambulation Family History Family History Sister Mental health disorder Sister Mental health disorder Mother Mental health disorder Surgical History Surgical History Hx of colonoscopy Social History Social History Housing: House Are you a primary customer care voice consultant to a significant other at home: No Do you presently have visiting nurse or other home services: No Alcohol intake: never Comment: medicated Patient Tobacco Use Status: Former Tobacco user Tobacco use type: Cigarette e-Cigarette/Vaping Use: Never Used Second Hand Smoke Exposure: No Use of substances other than those prescribed or required for medical reasons: No Have you been hit, kicked, punched, or otherwise hurt by someone within the past year? 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 Current occupational exposures/hazards: No Cognitive needs: No Hearing needs: No Vision needs: No Meds Allergies Allergy/AdvReac Type Severity Reaction Status Date / Time No Known Allergies Allergy Verified 09/07/24 08:42 Home Medications ?Medication ?Instructions ?Recorded ?Confirmed ?Last Taken ?Type ibuprofen 200 mg tablet (Advil) 400 mg PO Q8H PRN Pain 10/01/22 09/30/24 Unknown History magnesium oxide 400 mg PO DAILY 11/10/23 09/30/24 Unknown History alprazolam 0.5 mg tablet 0.5 mg PO BEDTIME PRN Anxiety 08/04/24 09/30/24 Unknown History Exam Exam Date and Time: 09/30/2024 Airway Mallampati Class: III TM Dist: >3cm Neck ROM: Full Loose/Missing/Broken Teeth: No Heart: rrr Lungs: cta Other: normal Assessment and Plan Final Anesthetic Review NPO: Yes ASA Class: II Final Preanesthetic Review: No Changes in Pt Med Stat, Meds/Allgs Chart Reviewed, Consent Obtained/Reviewed and Anes Risks/Benef Reviewed Patient Risk: Intermediate Procedure Risk: Low Anesthetic Plan Anesthetic Plan: MAC: Disposition: Standard PACU
[2024-09-28 16:11] VITALS: BMI 37.2
--- NOTE | ~2024-09-30 | FL_ITS ---
EXAMINATION: XR FLUOROSCOPY WITH IMAGES CLINICAL INFORMATION: Sacral hiatus pain management epidural injection. COMPARISON: None available. TECHNIQUE: Fluoroscopy provided to: Dr. Persaud Fluoroscopy time: 38.6 seconds DAP: 11.485 Gycm2 Images: 3 FINDINGS: 3 fluoroscopic spot images taken during sacral hiatus injection for pain management. Please refer to the full operative report for details. FL/FL guidance in OR IMPRESSION: Fluoroscopic guidance. Electronically signed by: Monty Waldrop MD 09/30/2024 03:01 PM EDT
--- NOTE | 2024-09-30 10:58 | ECG_ITS ---
Test Reason : preop Blood Pressure : */* mmHG Vent. Rate : 73 BPM Atrial Rate : 73 BPM P-R Int : 156 ms QRS Dur : 126 ms QT Int : 432 ms P-R-T Axes : 16 -11 8 degrees QTcB Int : 475 ms Normal sinus rhythm Right bundle branch block Abnormal ECG When compared with ECG of 01-Aug-2024 14:55, Left anterior fascicular block is no longer Present Referred By: Kim Kumar Electronically Signed By: ELENA OSORIO MD
[2024-09-30 11:13] VITALS: BP 147/82; PULSE 67; RESP 18; TEMP 36.3; O2SAT 96
[2024-09-30 11:20] LABS: Glucose, Whole Blood 166 mg/dL (60-115)
--- NOTE | 2024-09-30 11:23 | MHC.SHP ---
Pre-Procedural Eval Section A - 24 Hr Update-Section A only Date of Service: 09/30/24 The patient is an INPATIENT: No Changes since office visit: Yes Patient answered all questions The patient has been examined within 24 hours of the surgical procedure. The History & Physical has been completed within 30 days and I have reviewed it.: No Section B - Complete if H&P > 30 days Chief Complaint: Unspecified mononeuropathy of bilateral lower limb Details of Present Illness: Radiculopathy bilateral lumbar Relevant Social History: None Present Medications: None Medical History: No relevant PMH History of Previous Operations: No relevant previous surgery Allergies: Allergies Allergy/AdvReac Type Severity Reaction Status Date / Time No Known Allergies Allergy Verified 09/07/24 08:42 Review of Systems Sugical H&P ROS: Negative: Respiratory, Neurological, Psychiatric, Hem-Onc, Allergic/Immunologic, Gastrointestinal, Musculoskeletal, Integumentary and Eyes/Ears/Nose/Throat and Yes, Specify: Constitution (Obesity), Cardiovascular (Left and right bundle branch block, heart rate 62 on admission), Genitourinary (Nephrolithiasis) and Endocrine (Diabetes) Exam Surgical H&P Exam: Normal: HEENT, Normal: Heart, Normal: Lungs, Normal: Extremities, Normal: Abdomen, Normal: Skin and Normal: Neurological Plan Diagnosis/Plan: Unchanged I have reviewed the history and physical and performed a pertinent physical examination on my patient. No changes have occurred unless specified. Time Spent With Patient Time: Total time managing care of this patient today ____ minutes.
[2024-09-30] MEDS: Lactated Ringers 1,000 ML 100 ML IVCONT (11:24)
--- NOTE | 2024-09-30 11:51 | HO.ANESPROP2 ---
[facility] Active Problems Active Problems: All Active Problems (Updated 08/25/24 @ 14:27 by PELON Herrera) Cervical disc disorder (Acute) Muscle spasms of neck (Acute) Ataxia (Acute) Cervical spondylosis (Acute) Cervical radiculopathy (Acute) Anxiety (Acute) Lumbar degenerative disc disease (Acute) Lumbar stenosis (Acute) Abnormal CT scan, lumbar spine (Acute) Neuropathic pain, leg, bilateral (Acute) Diabetes (Acute) Bladder wall thickening (Acute) Urinary urgency (Acute) Urinary dribbling (Acute) Erectile dysfunction associated with type 2 diabetes mellitus (Acute) Nephrolithiasis (Acute) Anxiety about health (Acute) Encounter for routine adult physical exam with abnormal findings (Acute) Vasectomy evaluation (Acute) Leg cramps (Acute) Lateral epicondylitis, right elbow (Acute) Cough (Acute) Chills (Acute) Fatty liver (Acute) Right elbow pain (Acute) Physical exam (Acute) Screening PSA (prostate specific antigen) (Acute) Diabetes (Acute) Screening for colon cancer (Acute) Family history of cardiovascular disorder (Acute) Chest discomfort (Acute) Liver cyst (Acute) Obesity (BMI 35.0-39.9 without comorbidity) (Acute) Pre-op examination (Acute) Cellulitis of arm, left (Acute) Tick bite (Acute) Blood typing encounter (Acute) Past Medical History Medical History Neuropathic pain, leg, bilateral Cough Chills Diabetes Erectile dysfunction Functional capacity: independent ambulation Family History Family History Sister Mental health disorder Sister Mental health disorder Mother Mental health disorder Family history of problems with anesthesia: No Surgical History Surgical History Hx of colonoscopy History of Problems with Anesthesia: No Social History Social History Housing: House Are you a primary care information associate to a significant other at home: No Do you presently have visiting nurse or other home services: No Alcohol intake: never Comment: medicated Patient Tobacco Use Status: Former Tobacco user Tobacco use type: Cigarette e-Cigarette/Vaping Use: Never Used Second Hand Smoke Exposure: No Use of substances other than those prescribed or required for medical reasons: No Have you been hit, kicked, punched, or otherwise hurt by someone within the past year? 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 Current occupational exposures/hazards: No Cognitive needs: No Hearing needs: No Vision needs: No Meds Allergies Allergy/AdvReac Type Severity Reaction Status Date / Time No Known Allergies Allergy Verified 09/07/24 08:42 Active Medications: Current Medications Lactated Ringer's (Lr) 1,000 mls @ 100 mls/hr IVCONT .Q10H MACK Last Admin: 09/30/24 11:24 Dose: 100 mls/hr Home Medications ?Medication ?Instructions ?Recorded ?Confirmed ?Last Taken ?Type ibuprofen 200 mg tablet (Advil) 400 mg PO Q8H PRN Pain 10/01/22 09/30/24 Unknown History magnesium oxide 400 mg PO DAILY 11/10/23 09/30/24 Unknown History alprazolam 0.5 mg tablet 0.5 mg PO BEDTIME PRN Anxiety 08/04/24 09/30/24 Unknown History Exam Height,Weight and Vital Signs: Height 6 ft 3 in Weight 135.171 kg Last Vital Signs Temp 97.4 F 09/30/24 11:13 Pulse 67 09/30/24 11:13 Resp 18 09/30/24 11:13 BP 147/82 H 09/30/24 11:13 Pulse Ox 96 09/30/24 11:13 O2 Del Method Room Air 09/30/24 11:13 Pertinent Lab Results Pertinent Lab Results: Laboratory Tests 09/30/24 11:17 POC Glucose 166 H Assessment and Plan Final Anesthetic Review Family History of Problems with Anesthesia: No History of Problems with Anesthesia: No
[2024-09-30 12:34] VITALS: BP 129/74; PULSE 74; RESP 18; TEMP 36.4; O2SAT 97
[2024-09-30 12:39] VITALS: BP 122/66; PULSE 63; RESP 17; O2SAT 97
--- NOTE | 2024-09-30 12:40 | PM.OP ---
Brief Operative Note Date of Service: 09/30/24 Pre-op diagnosis: Radiculopathy lumbar. Post-op diagnosis: same Procedure: Caudal epidural steroid injection with catheter. Surgeon: Farhad Persaud MD Anesthesia: MAC Was an Chain Puller used for this Procedure?: No Estimated blood loss (mL): 0 Pathology: none sent Condition: stable Disposition: PACU
--- NOTE | 2024-09-30 12:41 | W.PM.OPN ---
Operative Note Operative Note Date of Service: 09/30/24 Narrative: Caudal epidural steroid injection with catheter. Jefry is very pleasant 54 years old gentleman who came today to the operating room to receive caudal epidural injection with catheter to treat radiculopathy lumbar. Informed consent was thoroughly explained to the patient risks and benefits were explained. The patient was taken to the operating room and he was positioned prone on operating table, [place] [employer] monitors were applied. Patient was moderately sedated. After that the lower back entire buttocks and intergluteal crease were prepped with ChloraPrep and draped with sterile self adhesive utility towels. C-arm was brought over the operating field and sq picture of the sacral bone and caudal spine were demonstrated on the screen. Lateral view was obtained demonstrating the sacral hiatus. 3 cm below the level of sacral hiatus injection of the lidocaine was performed into intragluteal screws skin. After that 18 gauge 10 cm epidural needle was inserted through the skin and advanced into the sacral hiatus and caudal canal under intermittent anterior posterior and lateral views. When tip of the needle entered the epidural space Isovue M contrast was injected into the needle demonstrating epidural spread of the contrast. After that 22 gauge epidural catheter was inserted into the needle happened advanced will past 20 cm length of the catheter. Contrast was injected into the epidural catheter demonstrating L5 vertebra spread of the contrast. After that 30 cc of preservative-free normal saline was injected into the catheter spreading epidural adhesions. After that treatment solution of lidocaine 1% preservative-free mixed with Kenalog 40 mg was injected into the catheter. Upon completion of the injection needle and the catheter were removed EN mass and sterile dressing with be bacitracin was applied to the site of the needle stick. The patient was awakened after that transferred to PACU where he recovered uneventfully.
[2024-09-30 12:59] VITALS: BP 140/73; PULSE 63; RESP 17; TEMP 36.1; O2SAT 98
== END 2024-09-30 13:26 | disposition home or self-care (01) ==
PROVIDERS: PCP Nurse Practitioner Family; Visit Provider Anesthesiology
PROC: 3E0R3GC Introduction of Other Therapeutic Substance into Spinal Canal, Percutaneous Approach (ICD-10-PCS; CPT 62322; principal; 2024-09-30 12:20)
DX: M54.16 Radiculopathy, lumbar region (principal); M47.816 Spondylosis without myelopathy or radiculopathy, lumbar region; M51.369 Other intervertebral disc degeneration, lumbar region without mention of lumbar back pain or lower extremity pain; M48.061 Spinal stenosis, lumbar region without neurogenic claudication; E11.9 Type 2 diabetes mellitus without complications; N52.9 Male erectile dysfunction, unspecified; R27.0 Ataxia, unspecified; Z79.1 Long term (current) use of non-steroidal anti-inflammatories (NSAID); Z79.899 Other long term (current) drug therapy; Z87.891 Personal history of nicotine dependence
CPT/HCPCS: 62323; 82947; 93005; J1100; J2003; J2405; J2704; J2795; J3010; J3301; Q9967

== ENCOUNTER → 2024-09-30 10:49 | Outpatient (BNV) | payer OTHER, SELFPAY | PROVIDERS: PCP Nurse Practitioner Family; Visit Provider Anesthesiology | DX: M54.16 Radiculopathy, lumbar region (principal) | CPT/HCPCS: 62323 ==

== ENCOUNTER → 2024-09-30 10:58 | Outpatient (BNV) | payer OTHER, SELFPAY | PROVIDERS: PCP Nurse Practitioner Family; Visit Provider Internal Medicine Cardiovascular Disease | DX: I45.10 Unspecified right bundle-branch block (principal) | CPT/HCPCS: 93010 ==

== ENCOUNTER 2024-10-13 13:05 | Outpatient (AMB) | payer OTHER, SELFPAY ==
[2024-10-13 13:08] VITALS: BP 128/78; PULSE 83; BMI 35.8
--- NOTE | 2024-10-13 13:08 | MHC.OFFVIS ---
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 Allergies No Known Allergies Allergy (Verified 09/07/24 08:42) Medication List - Last Reconciled 10/13/24 by Dino Zhong MD alprazolam 0.5 mg PO BEDTIME PRN baclofen 10 mg PO BID 90 days blood-glucose sensor (FreeStyle Faizan 3 Sensor device) Test blood sugar 4 times per day buspirone 5 mg PO BID 90 days empagliflozin 25 mg PO QAM FreeStyle Faizan 3 Plus Sensor (blood-glucose sensor) Test blood sugar 4 times per day NS gabapentin 800 mg (2 x 400 mg) PO TID 30 days ibuprofen (Advil) 400 mg PO Q8H PRN magnesium oxide 400 mg PO DAILY metformin 1,000 mg PO BID 90 days morphine 15 mg PO BID PRN 5 days tadalafil (Cialis) 5 mg PO DAILY 90 days HPI Comments Details: Lawrence has been referred for cardiac consultation. No previously diagnosed coronary artery disease or myocardial infarction or cardiomyopathy or in fact any other cardiac issues. He is morbidly obese. Diabetic on medications. He states he had one occasion where he suddenly he felt like a jolt in the front of the chest and at that time had some numbness in the face and hand. After that disappear. He does not have any clear-cut exertional symptoms. Otherwise, recent EKG had shown right bundle-branch block. In the family history, sister apparently got diagnosed with hypertrophic cardiomyopathy and atrial fibrillation. [facility] Medical History Neuropathic pain, leg, bilateral Cough Chills Diabetes Erectile dysfunction Surgical History Hx of colonoscopy Family History (Updated 10/13/24 @ 13:37 by Dino Zhong MD) Sister Mental health disorder New onset a-fib Hypertrophic obstructive cardiomyopathy (HOCM) Mother Mental health disorder COPD (chronic obstructive pulmonary disease) Heart attack Father Heart attack Paternal Grandfather Heart attack Social History Housing: House Are you a primary medicare contact specialist to a significant other at home: No Do you presently have visiting nurse or other home services: No Alcohol intake: never Comment: medicated Patient Tobacco Use Status: Former Tobacco user Tobacco use type: Cigarette e-Cigarette/Vaping Use: Never Used Second Hand Smoke Exposure: No service: No Current occupational status: employed 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 Current occupational exposures/hazards: No Cognitive needs: No Hearing needs: No Vision needs: No Review of Systems Const Denies weakness ENT Denies dizziness Card Denies chest pain, Denies chest pain with activity, Denies syncope, Denies rapid heart rate, Denies pedal edema, Denies edema, Denies leg edema, Denies lightheadedness, Reports palpitations, Reports dyspnea, Reports dyspnea on exertion and Denies orthopnea Resp Denies cough, Reports dyspnea and Reports dyspnea on exertion GI Denies hematochezia and Denies change in stool character Musc Denies abnormal gait, Denies muscle cramps, Denies muscle weakness, Denies numbness, Denies radiating pain into limb and Denies tingling Neuro Denies abnormal gait, Denies dizziness, Denies syncope, Denies numbness, Denies tingling and Denies weakness Endo Reports palpitations Physical Exam Vital Signs: Last Vital Signs Pulse 83 10/13/24 13:08 BP 128/78 10/13/24 13:08 BMI result Body Mass Index 35.8 Const General: comfortable and no acute distress Orientation/consciousness: patient oriented x3 HEENT Other: Unremarkable Head: Yes normal to inspection Neck Neck: Yes normal visual inspection Chest Chest palpation & inspection: normal inspection of the chest Resp Auscultation: clear to auscultation bilaterally Cardio Palpation: normal PMI Heart sounds: S1 normal heart sound present, S2 normal heart sound present, no gallops, no murmurs and no rubs GI Palpation (GI): Soft to palpation Back/Spine/Pelvis Other: unremarkable Skin General skin exam: no rashes or lesions noted Neuro General: patient oriented x3 Extrem General: Yes normal to inspection Psych Mental Status: mental status grossly normal Assessment & Plan Assessment & Plan (1) Chest discomfort: Code(s): R07.89 - Other chest pain Category: Medical Plan: The chest pain episode itself is probably musculoskeletal but considering the risk factors of morbid obesity and diabetes, obtain coronary CTA for further evaluation. (2) Right bundle branch block: Code(s): I45.10 - Unspecified right bundle-branch block Category: Medical Plan: Could be related to weight. Could have undiagnosed sleep apnea. Mainly weight loss. Main home sleep study. Obtain echocardiogram for RV size. (3) Obesity (BMI 35.0-39.9 without comorbidity): Code(s): E66.9 - Obesity, unspecified Category: Medical Plan: Importance of weight loss discussed and hopefully he can lose some weight. Plan Discussion Notes I discussed with the patient the significance of the right bundle branch block and the need for further cardiac evaluation, including an echocardiogram and coronary CT scan. We also talked about the importance of managing diabetes through medication adherence and lifestyle changes. Patient was informed and verbally consented to the use of an ambient scribe for clinic note documentation during this visit. Orders: Orders CT Cardiac Coronary Angio Today I25.10 - Atherosclerotic heart disease of [place] coronary artery without angina pectoris, R07.89 - Other chest pain Basic Metabolic Panel Today R07.89 - Other chest pain CA echo transthoracic complete Today R07.89 - Other chest pain RT home sleep study Today G47.33 - Obstructive sleep apnea (adult) (pediatric) Patient Instructions: - Monitor blood sugar levels regularly and take prescribed medications as directed. - Follow a healthy diet and engage in regular physical activity to manage diabetes. - Attend scheduled echocardiogram and coronary CT scan appointments. - Complete the home sleep study. Coding Level of Care Code New Pt Level 4 (14223) Complex EM visit Add On G2211 Diagnoses Chest discomfort R07.89 Right bundle branch block I45.10 Obesity (BMI 35.0-39.9 without comorbidity) E66.9
--- OUTSIDE RECORDS SUMMARY | 2024-10-13 14:19 | XMS_ITS | Clinical Summary ---
Author Organization [facility] Address [address] [place] [id number] Phone Care Team Providers Care Fourth Hand Name Role Phone Aleksandra Gee NP Primary [...] 06/03/2021 ZOSTER VACCINES (1 of 2) 06/03/2021 INFLUENZA VACCINE (#1) 2024 9, 12/29/2014, 11/30/2013 COVID-19 VACCINE (3 - 2024-2 6 season) 2024 07/05/2020, 06/07/2020 Adult Td,Tdap Booster 04/12/2025 04/13/2015 [...] topic Medical Devices Not on file Insurance [facility] [address] [place] [address] [place] [address] [place] [address] [place] [address] [facility] H[facility] Care Teams Fourth Hand Relationship Specialty Start Date End Date Aleksandra Gee NP [facility] [address] [place] [id number] [email or web address] PCP - General Family Medicine 08/10/18 Additional Source Comments The information contained in this document represents components of the legal health record. It is not the complete legal health record.[facility]
--- OUTSIDE RECORDS SUMMARY | 2024-10-13 14:19 | XMS_ITS | Patient Health Record ---
Author Organization [facility] Address [address] [address] Care Team Providers Care Statue Maker Name Role Phone KemiRobyn ring Unavailable [phone] Reason For Referral No Information Problems No Known Problems Plan Of Treatment No Information Insurance Providers Payer Name Payer Address Payer Phone Subscriber Number Group Number Insured Name Patient Relationship to Insured Coverage Start Date Coverage End Date [facility] [address] [place] [address] [id number] Lawrence Bustamante Self - patient is the insured Medical (General) History Medical History History ICD Code Back,Hip,and Knee pain Chicken pox Surgical History Surgery Date(Month/Year) right hand 2007
--- OUTSIDE RECORDS SUMMARY | 2024-10-13 14:19 | XMS_ITS | Clinical Summary ---
Author Organization [address] Address [address] [place] [address] Phone Care Team Providers Care Business Services Intern Name Role Phone Unavailable Primary Care Provider [...] 06/03/2021 Covid-19 vaccine series (1 - season) 2024 Influenza vaccine 10/10/2024 Diabetes screening 11/24/2025 11/24/2022 RSV Immunization (1 - 1-dose 75+ series) 06/03/2046 Meningococcal B Vaccine Aged Out No l onger eligible based on patient's age to complete this topic Meningococcal Vaccine Aged Out No paz montrell eligible based on patient's age to complete this topic Procedures Procedure Name Priority Date/Time Associated Diagnosis Comments BASIC METABOLIC PANEL STAT 11/24/2022 12:20 AM EDT from Last 3 Months or Most Recently Relevant to Health Maintenance Results * (ABNORMAL) Basic metabolic panel (11/24/2022 12:20 AM EDT) Glucose 164(H) 65 - 110 mg/dL 11/24/2022 1:02 AM EDT + [facility] Comment: Non-fastin-110 mg/dL Fasting (minimum 6 hrs): 65-99 mg/dL BUN 16 7 - 18 mg/dL 11/24/2022 1:02 AM EDT + [facility] Creatinine 0.99 0.70 - 1.30 mg/dL 11/24/2022 1:02 AM EDT L + [facility] Sodium 140 136 - 145 mmol/L 11/24/2022 1:02 AM EDT L + [facility] Potassium 3.7 3.5 - 5.1 mmol/L 11/24/2022 1:02 AM EDT + [facility] Chloride 106 98 - 107 mmol/L 11/24/2022 1:02 AM EDT + [facility] CO2 27 21 - 32 mmol/L 11/24/2022 1:02 AM EDT L + [facility] Anion Gap 7 5 - 15 mmol/L 11/24/2022 1:02 AM EDT + [facility] Calcium 8.4(L) 8.5 - 10.1 mg/dL 11/24/2022 1:02 AM EDT + [facility] eGFR (Creatinine) >60 >=60 mL/min/1.7 3m2 11/24/2022 1:02 AM EDT [facility] Comment: Values < 60 mL/min/1.73 m2 may indicate CKD if present for more than three months AND creatinine is at steady state. The eGFR provides a rough estimate of kidney function. On 09/24/21 all [facility] Clinical Labs and [facility] began using a dew-tbon-obayo formula for estimating GFR called CKD-EPI Creatinine 2020. This equation reports eGFR based on creatinine, patient age, clinical sex, and is standardized to a body surface area of 1.73 m2. For the same creatinine, this new race-free eGFR will be lower than prior reported Black eGFR results and higher than prior Non-Black eGFR results. For further guidance, please refer to the CKD: Adult Gauge And Weigh Machine Operator Signature pathway. Blood Venipuncture / Unknown 11/24/2022 12:20 AM EDT 11/24/2022 12:30 AM EDT us Lawrence Gallegos MD LAB BLOOD ORDERABLES Final Res ult + [facility] [address] [place] [address] from Last 3 Months or Most Recently Relevant to Health Maintenance Insurance COMMERCIAL GENERIC COMMERCIAL GENERIC COMMERCIAL GENERIC
== END 2024-10-13 13:50 | disposition home or self-care (01) ==
LOC: HO.HCS 13:06
PROVIDERS: PCP Nurse Practitioner Family; Visit Provider Internal Medicine
DX: R07.89 Other chest pain (principal); I45.10 Unspecified right bundle-branch block; E66.9 Obesity, unspecified; Z68.35 Body mass index [BMI] 35.0-35.9, adult
CPT/HCPCS: 99204; G2211

== ENCOUNTER 2024-11-04 08:59 | Outpatient (AMB) | payer OTHER, SELFPAY ==
--- NOTE | 2024-11-04 09:03 | A.OFFVIS_ITS ---
Vital Signs 11/04/24 09:06 Height 6 ft 3 in Weight 287 lb 4 oz BMI 35.9 BP 151/76 H Blood Pressure Location Rt brachial Position Sitting Pulse 67 Pulse Oximetry (%) 99 Oxygen Delivery Method Room Air Intake Visit Reasons: S/p Caudal SARWAT w/ Catheter 09/30/24 Intake Note: Pain today 07/19 Mask Designer Required: No Accompanied by: Spouse Allergies No Known Allergies Allergy (Verified 11/04/24 09:07) HPI Comments Details: The patient is a 54-year-old male presenting with chronic back pain and radicular leg and neuropathic pain. The back pain initially started in late 2023 as a result of disc herniation and spinal stenosis and has been persistent over time, with episodes of exacerbation and remission. The pain radiates to the legs, with overlapping neuropathy pain and has been managed with epidural steroid injections, which provided temporary relief. The patient reports that the first cortisone injection at [facility] significantly reduced both back and leg pain, but subsequent injections have been less effective. The leg pain has been fluctuating, with periods of increased intensity, particularly when walking or standing for extended periods. The patient has experienced severe leg cramps, which disturb his sleep and daily functioning. The patient has a history of peripheral neuropathy, confirmed by EMG, which contributes to the leg discomfort. He is currently on gabapentin, with a recent adjustment in dosage to manage symptoms more effectively but continues with neuropathic pain. The patient also has a history of Lyme disease, which may contribute to some of the neurological symptoms. Past Procedure: 09/30/24: Caudal SARWAT with catheter-40% pain relief, no significant leg and feet pain relief PRIOR: The patient is a 54-year-old male presenting with lumbar spinal stenosis related pain management issues. He experiences right-sided low back pain radiating to the back of his thighs, with an onset in October 2023. The pain was almost completely relief in February 2023 and partially alleviated by an epidural steroid injection at L4-L5 at [facility], providing approximately 50% relief in May; however, it persists with exacerbation during physical activities such as bending, twisting, and lifting. 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 The herniated discs have been resistant to cortisone injections. Dizziness and balance issues are also reported, which may correlate with his cervical condition and neuropathy. Current management includes gabapentin, ibuprofen, and morphine, with limited success in achieving significant pain relief. The patient's previous history of Lyme disease and diabetes mellitus, with an A1c of 6.7, is significant, and further investigation into his neck condition is indicated to assess its contribution to the neurological symptoms, given ataxia and impaired gait. - Onset: October of last year - Quality: Constant throbbing, pulsing, pounding, shooting, stabbing, sharp, cramping, tingling, aching, hurting, dull, sore and heavy. Rated at 7-10 at late afternoon/evening and 1-3/10 in the early childhood associate. - Location: Right-sided low back, radiating to the back of the thighs - Exacerbating factors: Walking, bending, flexing forward, twisting, and lifting - Relieving factors: Interlaminar epidural steroid injection provided 50% relief 05/2024 and complete pain relief in 02/2024 through [facility]. - Interference: Affects daily activities such as sitting and walking - Affect: Pain and dizziness significantly impact quality of life, causes elevated levels of stress - Analgesia: Gabapentin, ibuprofen as needed, and sparing use of morphine - Adverse Effects: Dizziness potentially related to medication or condition - Activities of Daily Living: Pain interferes with physical activities, work including bending, walking, and sitting - Aberrant Drug Related Behaviors: No evidence of misuse reported [facility] Medical History Neuropathic pain, leg, bilateral Cough Chills Diabetes Erectile dysfunction Surgical History Hx of colonoscopy Family History Sister Mental health disorder New onset a-fib Hypertrophic obstructive cardiomyopathy (HOCM) Mother Mental health disorder COPD (chronic obstructive pulmonary disease) Heart attack Father Heart attack Paternal Grandfather Heart attack Social History Housing: House Are you a primary medicare interviewer to a significant other at home: No Do you presently have visiting nurse or other home services: No Alcohol intake: never Comment: medicated Patient Tobacco Use Status: Former Tobacco user Tobacco use type: Cigarette e-Cigarette/Vaping Use: Never Used Second Hand Smoke Exposure: No service: No Current occupational status: employed 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 Current occupational exposures/hazards: No Cognitive needs: No Hearing needs: No Vision needs: No Review of Systems Const Details: - Musculoskeletal: Reports chronic back pain and radicular leg pain - Neurological: Reports leg cramps and peripheral neuropathy - General: Reports history of Lyme disease and DM All systems reviewed & are unremarkable except as noted in HPI and below Physical Exam Vital Signs: Last Vital Signs Pulse 67 11/04/24 09:06 BP 151/76 H 11/04/24 09:06 Pulse Ox 99 11/04/24 09:06 Oxygen Delivery Method Room Air 11/04/24 09:06 BMI result Body Mass Index 35.9 General: Appears afebrile. Alert and oriented. Mood and affect appropriate. Follows and participates in conversation appropriately. Respiratory effort is unlabored. No cough. Able to transition from sit to stand unassisted. Ambulates with bilaterally normal heel strike and toe off. Neck Other: Patient with decreased cervical ROM in all planes/especially with lateral rotations. Reports increased pain with cervical extensionand flexion. Spurling compression test equivocal. Pain is unchanged by Spurling maneuver with retraction. Elvey's tension test positive bilaterally, with radiation of pain from neck to wrist and fingers. Lhermitte's test was negative. DTR intact, +1 and symmetrical. Patient demonstrated 5/5 motor strength of bilateral upper extremities. 2 + radial pulses. Significant tightness throughout lower and upper trapezius muscles. Neck: Yes normal visual inspection, Yes no lymphadenopathy, Yes supple, No anterior neck swelling, Yes no JVD, No prominent supraclavicular fat pad and Yes prominent dorsocervical fat pad General: Yes no CVA tenderness Back/Spine/Pelvis Other: Limited lumbar ROM due to pain. Antalgic gait with ataxia. Demonstrates 5/5 strength of quadriceps bilaterally as well as flexion/dorsiflexion of bilateral feet against resistance. 2+ pedal pulses bilaterally. Straight leg rise with dorsiflexion negative bilaterally. +1 patellar and diminished achilles reflexes bilaterally. Facet loading test positive bilaterally. Haroon sign, Jef?s, Pelvic compression and Stinchfield tests are positive bilaterally, right>left. No groin pain with I/E hip rotations. Valsalva maneuver negative. Back: no CVA tenderness Cervical Spine: cervical ROM normal, cervical muscular tenderness, pain with cervical ROM, No Cervical spine scars present, cervical spasm and No Cervical spine tenderness Thoracic/Lumbar Spine: thoracic and lumbar spine normal to inspection, No Thoracic/lumbar spine scar(s), Lasegue's sign negative, straight leg raise negative bilaterally, pain with thoraco-lumbar ROM, paraspinal muscle tenderness, thoraco-lumbar ROM limited, No thoracic spinal tenderness and lumbar spinal tenderness (L4-S1) Sacroiliac joints: bilaterally tender to palpation Extrem General: Yes capillary refill normal, Yes no clubbing, cyanosis or edema and Yes no calf tenderness Results Reviewed Results Reviewed: MR THORACIC SPINE WITHOUT CONTRAST 02/17/24 CLINICAL INFORMATION: Unspecified mononeuropathy bilateral lower limbs. COMPARISON: None available. TECHNIQUE: MRI of the thoracic spine was obtained using routine sequences without contrast. FINDINGS: Limited by patient's breathing motion artifact. No bone marrow STIR signal abnormality. Multilevel disc desiccation. Multilevel marginal osteophyte formation more conspicuous from T5 to T8. Normal alignment. C6-7: There is a broad-based central right subarticular and foraminal disc herniation resulting in ventral deformity of the spinal cord without gross cord signal abnormality. At T1-2: No disc herniation. No neuroforamina stenosis. T2-3: No disc herniation. No neuroforamina stenosis. T3-4: Right subarticular disc herniation resulting in ventral deformity of spinal cord. No cord signal abnormality. No gross neuroforamina stenosis. T4-5: Right subarticular disc protrusion without cord compression. No cord signal abnormality. No neuroforamina stenosis. T5-6: Right subarticular disc protrusion. No cord compression. No cord signal abnormality. No neuroforamina stenosis. T6-7: No disc herniation. No gross neuroforamina stenosis. T7-8: No disc herniation. No gross neuroforamina stenosis. T8-9: Central disc protrusion without cord compression. No cord signal abnormality. No neuroforamina stenosis. T9-10: No disc herniation. No gross neuroforamina stenosis. T10-11: No disc herniation. No neuroforamina stenosis. T11-12: Broad-based disc bulging. No cord compression. No neuroforamina stenosis. Facet joint hypertrophy as well as ligamentum flavum. T12-L1: No disc herniation. No neuroforamina stenosis. Conus medullaris ends at pedicle of L1 with normal signal. No prevertebral compartment hematoma, mass or fluid collection. Descending thoracic aorta demonstrates normal caliber and flow-void signal. IMPRESSION: Central right subarticular and foraminal broad-based disc herniation C6-7 resulting in ventral deformity of the spinal cord without cord edema and or myelopathy and right neuroforamina narrowing. Multilevel thoracic spondylosis without cord compression, edema and or myelopathy. MR LUMBAR SPINE WITHOUT CONTRAST 01/29/24 CLINICAL INFORMATION: Unspecified mono neuropathy of bilateral lower limbs COMPARISON: None available. TECHNIQUE: MRI of the lumbar spine was obtained using routine sequences without contrast. FINDINGS: There are 5 nonrib-bearing lumbar-type vertebrae. Mild levocurvature of the lumbar spine. Normal alignment. No acute bone marrow abnormality. The vertebral body heights are preserved. Multilevel disc desiccation with mild to moderate disc height loss at L4-5 and L5-S1. Multilevel endplate osteophytosis. The visualized spinal cord is normal in caliber. No abnormal cord signal. The conus medullaris terminates at L1. 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 T12-L1: No significant spinal canal or neural foraminal narrowing. L1-2: Shallow disc bulge and bilateral facet arthrosis. No significant spinal canal or neural foraminal narrowing. L2-3: Diffuse disc bulge, ligamentum flavum hypertrophy, and bilateral facet arthrosis. Mild spinal canal stenosis. Mild right neural foraminal narrowing. L3-4: Shallow disc bulge, ligamentum flavum hypertrophy, and bilateral facet arthrosis. Mild to moderate spinal canal stenosis. Mild right greater than left neural foraminal narrowing. L4-5: Diffuse disc bulge with superimposed annular fissure. Ligamentum flavum hypertrophy and bilateral facet arthrosis. Mild spinal canal stenosis. Mild right greater than left neural foraminal narrowing with the disc abutting the exiting L4 nerve roots bilaterally. L5-S1: Shallow disc bulge and bilateral facet arthrosis. Moderate left neural foraminal narrowing. No significant spinal canal stenosis. The paravertebral soft tissues are unremarkable. Partially imaged bilateral pararenal cysts. IMPRESSION: Multilevel lumbar spondylosis superimposed on congenitally short pedicles resulting in diffuse lumbar spinal canal stenosis, most notable at L2-3 and L3-4. Multilevel neural foraminal narrowing is worst and moderate on the left at L5-S1. EMG and NE nerve conduction velocity 01/12/24 FINDINGS: Bilateral tibial and peroneal motor studies were performed. Bilateral superficial peroneal, sural, and median lateral mixed plantar studies were performed. Tibial H reflexes were obtained and paraspinal muscles were tested with a needle. IMPRESSION: Mild to moderate, mostly sensory peripheral neuropathy affecting feet more than legs. Assessment & Plan Assessment & Plan (1) Neuropathic pain, leg, bilateral: Code(s): G57.93 - Unspecified mononeuropathy of bilateral lower limbs Category: Medical (2) Lumbar stenosis: Code(s): M48.061 - Spinal stenosis, lumbar region without neurogenic claudication Category: Medical (3) Lumbar degenerative disc disease: Code(s): M51.369 - Other intervertebral disc degeneration, lumbar region without mention of lumbar back pain or lower extremity pain Category: Medical Qualifiers: Disc-related pain type: lower extremity pain only Qualified Code(s): M51.361 - Other intervertebral disc degeneration, lumbar region with lower extremity pain only (4) Muscle spasms of neck: Code(s): M62.838 - Other muscle spasm Category: Medical (5) Lumbosacral spondylosis: Code(s): M47.817 - Spondylosis without myelopathy or radiculopathy, lumbosacral region Category: Medical Plan The management plan for the patient's chronic back pain and radicular leg pain includes considering a spinal cord stimulator trial and lumbar medial branch radiofrequency ablation if conservative measures fail to provide adequate relief. Physical therapy is recommended to improve mobility and manage pain, especially after the recent injection. The patient is advised to continue with gabapentin for neuropathic pain management, with the possibility of further dosage adjustments based on symptom control. Referral to Neurosurgery is suggested if the pain persists despite conservative management, to evaluate surgical options for disc herniation and spinal stenosis. Additionally, will proceed with Neurology evaluation at [facility] to further evaluate neuropathic pain with history of Lyme disease and DM. All questions and concerns have been answered and patient agreed with the treatment plan. Follow up after PT and sooner as needed. Patient was informed and verbally consented to the use of an ambient scribe for clinic note documentation during this visit. Orders: Orders PT Evaluation and Treatment Today G57.93 - Unspecified mononeuropathy of bilateral lower limbs, M47.817 - Spondylosis without myelopathy or radiculopathy, lumbosacral region, M48.061 - Spinal stenosis, lumbar region without neurogenic claudication, M51.361 - Other intervertebral disc degeneration, lumbar region with lower extremity pain only, M62.838 - Other muscle spasm Referrals Neurology Referral E11.9 - Type 2 diabetes mellitus without complications, G57.93 - Unspecified mononeuropathy of bilateral lower limbs, Z86.19 - Personal history of other infectious and parasitic diseases Coding Level of Care Code Est Pt Level 4 (81573) Complex EM visit Add On G2211 Diagnoses Neuropathic pain, leg, bilateral G57.93 Lumbar stenosis M48.061 Degeneration of intervertebral disc of lumbar region with lower extremity pain M51.361 Disc-related pain type: lower extremity pain only Muscle spasms of neck M62.838 Lumbosacral spondylosis M47.817
[2024-11-04 09:06] VITALS: BP 151/76; PULSE 67; O2SAT 99; BMI 35.9
--- OUTSIDE RECORDS SUMMARY | 2024-11-04 09:36 | XMS_ITS | Clinical Summary ---
Author Organization [address] Address [address] [place] [address] Phone Care Team Providers Care Tunnel Man Name Role Phone Unavailable Primary Care Provider [...] 2 Dose Standard Series) 06/03/2021 Influenza vaccine 09/09/2024 Covid-19 vaccine series (1 - season) 2024 Diabetes screening 11/24/2025 11/24/2022 RSV Immunization (1 [...] - 5.1 mmol/L 11/24/2022 1:02 AM EDT [facility] Chloride 106 98 - 107 mmol/L 11/24/2022 1:02 AM EDT + [facility] CO2 27 21 - 32 mmol/L 11/24/2022 1:02 AM EDT L + [facility] Anion Gap 7 5 - 15 mmol/L 11/24/2022 1:02 AM EDT + [facility] Calcium 8.4(L) 8.5 - 10.1 mg/dL 11/24/2022 1:02 AM EDT + [facility] eGFR (Creatinine) >60 >=60 mL/min/1.7 3m2 11/24/2022 1:02 AM EDT [facility] Comment: Values < 60 mL/min/1.73 m2 may indicate CKD if present for more than three months AND creatinine is at steady state. The eGFR provides a rough estimate of kidney function. On 09/24/21 all [facility] Clinical Labs and [facility] began using a [id number] formula for estimating GFR called CKD-EPI Creatinine 2020. This equation reports eGFR based on creatinine, patient age, clinical sex, and is standardized to a body surface area of 1.73 m2. For the same creatinine, this new race-free eGFR will be lower than prior reported Black eGFR results and higher than prior Non-Black eGFR results. For further guidance, please refer to the CKD: Adult Industrial Ecology Technician Signature pathway. Blood Venipuncture / Unknown 11/24/2022 12:20 AM EDT 11/24/2022 12:30 AM EDT us Lawrence Gallegos MD LAB BLOOD ORDERABLES Final Res ult + [facility] [address] [place] [address] from Last 3 Months or Most Recently Relevant to Health Maintenance Insurance COMMERCIAL GENERIC COMMERCIAL GENERIC COMMERCIAL GENERIC
--- OUTSIDE RECORDS SUMMARY | 2024-11-04 09:36 | XMS_ITS | Patient Health Record ---
Author Organization [facility] Address [address] [place] [address] Care Team Providers Care Drawing Kiln Operator Name Role Phone KemiRobyn ring Unavailable [phone] Reason For Referral No Information Problems No Known Problems Plan Of Treatment No Information Insurance Providers Payer Name Payer Address Payer Phone Subscriber Number Group Number Insured Name Patient Relationship to Insured Coverage Start Date Coverage End Date [facility] [address] [place] [address] [id number] Lawrence Bustamante Self - patient is the insured Medical (General) History Medical History History ICD Code Back,Hip,and Knee pain Chicken pox Surgical History Surgery Date(Month/Year) right hand 2007
--- OUTSIDE RECORDS SUMMARY | 2024-11-04 09:36 | XMS_ITS | Clinical Summary ---
Author Organization [facility] Address [address] [place] [id number] Phone Care Team Providers Care Kiln Firer Helper Name Role Phone Aleksandra Gee NP Primary [...] topic Medical Devices Not on file Insurance [facility] [address] [place] [address] [place] [address] [place] [address] [place] [address] [facility] Care Teams Kiln Firer Helper Relationship Specialty Start Date End Date Aleksandra Gee NP [facility] [address] [place] [id number] [email or web address] PCP - General Family Medicine 08/10/18 Additional Source Comments The information contained in this document represents components of the legal health record. It is not the complete legal health record.[facility]
== END 2024-11-04 09:40 | disposition home or self-care (01) ==
LOC: HO.PMC 09:00
PROVIDERS: PCP Nurse Practitioner Family; Visit Provider Nurse Practitioner Family
DX: G57.93 Unspecified mononeuropathy of bilateral lower limbs (principal); M48.061 Spinal stenosis, lumbar region without neurogenic claudication; M51.361 Other intervertebral disc degeneration, lumbar region with lower extremity pain only; M62.838 Other muscle spasm; M47.817 Spondylosis without myelopathy or radiculopathy, lumbosacral region
CPT/HCPCS: 99214; G2211

== ENCOUNTER → 2024-11-10 10:06 | Outpatient (REF) | payer OTHER, SELFPAY ==
--- NOTE | 2024-11-10 10:12 | CA_ITS ---
Transthoracic Echocardiogram Patient (Last, First, Middle): Lawrence Bustamante F Gender: M Date of : 1970 Age: 54 Procedure Date: 11/10/2024 Procedure Type: Transthoracic Echocardiogram Location: OP Height: 190.5 cm Weight: 130.18 kg BSA: 2.56 m2 Heart Rate: bpm BP: 151 / 76 mmHg Clinical Programmer: TAL Referring MD: Dino Zhong MD Symptoms: R07.89 - Other chest pain Study Quality: Adequate with contrast ECG Rhythm: Sinus Conclusions: - The left ventricular systolic function is low normal. The visually estimated ejection fraction is between 50-55%. - No obvious valvular pathology seen on this study. Findings Procedure Information Contrast agent, definity, is being given per protocol without apparent complications. Left Ventricle Normal left ventricular cavity size. There is mildly increased left ventricular wall thickness. The left ventricular systolic function is low normal. The visually estimated ejection fraction is between 50-55%. Diastolic function is normal for age. Moderate focal hypertrophy of the basal septum. Right Ventricle Mildly increased right ventricular cavity size. There is normal right ventricular systolic function. Atria Both atria are normal in size. Aortic Valve There is a normal trileaflet aortic valve. There is no aortic valve stenosis. There is no aortic valve regurgitation. Mitral Valve The mitral valve appears normal. There is no mitral valve regurgitation. There is no mitral valve stenosis. Pulmonic Valve The pulmonic valve is likely normal. Tricuspid Valve There is trace tricuspid valve regurgitation. There is no evidence of pulmonary hypertension. Great Vessels The asc aorta is normal in size. Venous The inferior vena cava is normal in size and collapses greater than 50% with inspiration. Pericardium/Pleural There is no evidence of pericardial effusion. Prior Study Comparison No significant change compared to prior study dated: 10/16/2021. Recommendations, Care & Conclusions No obvious valvular pathology seen on this study. Measurements 2D Linear Measurements IVSd: 1.36 0.6-0.9/0.6-1.0 cm LVIDd: 4.96 3.9-5.3/4.2-5.9 cm LVIDd Index: 1.94 2.4-3.2/2.2-3.1 cm/m2 LVIDs: 3.59 2.0-3.6 cm LVPWd: 1.04 0.7-1.1 cm LA Diam: 3.30 2.7-3.8/3.0-4.0 cm LAIDs Index: 1.29 1.5-2.3 cm/m2 LV Mass: 287.73 67-162/88-224 g LV Mass Index: 112.39 43-95/49-115 g/m2 LVOT Diam: 2.10 3.0+(-)1.3 cm 2D Systolic Function EF 4C: 49.50 >55% EF 2C: 66.30 >55% EF BiP: 57.80 >55% Mitral Valve MV Pk E: 0.96 MV PK A: 0.63 MV Decel Time: 255.00 E/A: 1.50 E'Lateral: 11.20 E'Medial: 8.81 E/E' Med: 10.80 E/E' Lat: 8.50 PHT: 75.00 MVA PHT: 2.93 Decel Sedgwick: 3.75 Aortic Valve AoV Pk Gerry: 1.48 AoV Mn Gerry: 1.03 AoV VTI: 0.31 AoV Pk Grad: 9.00 Aov Mn Grad: 5.00 WARREN Cont.VTI: 2.91 LVOT LVOT Pk Gerry: 1.23 LVOT Mn Gerry: 0.83 LVOT VTI: 0.26 LVOT Pk Grad: 6.00 LVOT Mn Grad: 3.00 LVOT Diam: 2.10 LVOT Area: 3.46 Diastolic Function MV Pk E: 0.96 MV Pk A: 0.63 E/A: 1.50 E'Medial: 8.81 E/E' Med: 10.80 E' Laterial: 11.20 E/E' Lat: 8.50 Right Ventricle TAPSE (mm): 28.60 TVS' Gerry: 14.90 Tricuspid Valve RA Press: 3.00 Great Vessels Aorta Sinus of Valsalva: 3.42 2.0-3.5 cm Ao Asc: 3.30 2.1-3.4 cm Pulmonary Veins Pulm Vein S/D 1.10 Updated in Other Vendor System with Status of Final Dino Zhong MD electronically signed on 11/12/2024 11:58:11 AM with status of Final
--- OUTSIDE RECORDS SUMMARY | 2024-11-10 11:27 | XMS_ITS | Patient Health Record ---
Author Organization [facility] Address [address] [place] [address] Care Team Providers Care Landfill Gas Plant Field Technician Name Role Phone KemiRobyn ring Unavailable [phone] Reason For Referral No Information Problems No Known Problems Plan Of Treatment No Information Insurance Providers Payer Name Payer Address Payer Phone Subscriber Number Group Number Insured Name Patient Relationship to Insured Coverage Start Date Coverage End Date [facility] [address] [place] [address] [phone] [id number] Lawrence Bustamante Self - patient is the insured Medical (General) History Medical History History ICD Code Back,Hip,and Knee pain Chicken pox Surgical History Surgery Date(Month/Year) right hand 2007
--- OUTSIDE RECORDS SUMMARY | 2024-11-10 11:28 | XMS_ITS | Clinical Summary ---
Author Organization [facility] Address [address] [place] [address] Phone Care Team Providers Care Sash Assembler Name Role Phone Aleksandra Gee NP Primary [...] Medical Devices Not on file Insurance [facility] [address] [place] [address] [place] [address] [place] [address] [place] [address]O [facility] H[facility] Care Teams Sash Assembler Relationship Specialty Start Date End Date Aleksandra Gee NP [facility] [address] [place] [address] [email or web address] PCP - General Family Medicine 08/10/18 Additional Source Comments The information contained in this document represents components of the legal health record. It is not the complete legal health record.[facility]
== END ==
LOC: HO.CARD 10:06
PROVIDERS: PCP Nurse Practitioner Family; Visit Provider Internal Medicine
DX: R07.89 Other chest pain (principal)
CPT/HCPCS: 93306; Q9957

== ENCOUNTER → 2024-11-10 10:12 | Outpatient (BNV) | payer OTHER, SELFPAY | PROVIDERS: PCP Nurse Practitioner Family; Visit Provider Internal Medicine | DX: I42.2 Other hypertrophic cardiomyopathy (principal) | CPT/HCPCS: 93306 ==

== ENCOUNTER 2024-11-23 06:38 | Outpatient (AMB) | payer OTHER, SELFPAY ==
--- OUTSIDE RECORDS SUMMARY | 2024-11-23 06:42 | XMS_ITS | Clinical Summary ---
Author Organization [facility] Address [address] [place] [address] Phone Care Team Providers Care Inspector Structural Bonding Name Role Phone Aleksandra Gee NP Primary [...] 07/05/2020, 06/07/2020 Adult Td,Tdap Booster 04/12/2025 04/13/2015 RSV VACCINE (1 - 1-dose 75+ series) 06/03/2046 SMOKING STATUS SCREENING (On ce After 26 [...] topic Medical Devices [place] [id number] [facility] [address] [address] [place] [place] [address] [place] [address] [place] [address] [facility] [address] [place] [address] Care Teams Inspector Structural Bonding Relationship Specialty Start Date End Date Aleksandra Gee NP [facility] [address] [place] [id number] [email or web address] PCP - General Family Medicine 08/10/18 Additional Source Comments The information contained in this document represents components of the legal health record. It is not the complete legal health record.[facility]
--- OUTSIDE RECORDS SUMMARY | 2024-11-23 06:42 | XMS_ITS | Clinical Summary ---
Author Organization [address] Address [address] [place] [address] Phone Care Team Providers Care Client Service Consultant Name Role Phone Unavailable Primary Care Provider [...] - 5.1 mmol/L 11/24/2022 1:02 AM EDT [facility] Chloride 106 98 - 107 mmol/L 11/24/2022 1:02 AM EDT + [facility]OS[facility]ITAL [facility] CO2 27 21 - 32 mmol/L 11/24/2022 1:02 AM EDT L + [facility] Anion Gap 7 5 - 15 mmol/L 11/24/2022 1:02 AM EDT + [facility] Calcium 8.4(L) 8.5 - 10.1 mg/dL 11/24/2022 1:02 AM EDT + [facility] eGFR (Creatinine) >60 >=60 mL/min/1.7 3m2 11/24/2022 1:02 AM EDT [facility] Comment: Values < 60 mL/min/1.73 m2 may indicate CKD if present for more than three months AND creatinine is at steady state. The eGFR provides a rough estimate of kidney function. On 09/24/21 all [facility] and [facility] began using a vvm-hzbz-wkuyn formula for estimating GFR called CKD-EPI Creatinine 2020. This equation reports eGFR based on creatinine, patient age, clinical sex, and is standardized to a body surface area of 1.73 m2. For the same creatinine, this new race-free eGFR will be lower than prior reported Black eGFR results and higher than prior Non-Black eGFR results. For further guidance, please refer to the CKD: Adult Real Estate Legal Secretary Signature pathway. Blood Venipuncture / Unknown 11/24/2022 12:20 AM EDT 11/24/2022 12:30 AM EDT us Lawrence Gallegos MD LAB BLOOD ORDERABLES Final Res ult + [facility] [address] [place] [address] from Last 3 Months or Most Recently Relevant to Health Maintenance Insurance COMMERCIAL GENERIC COMMERCIAL GENERIC COMMERCIAL GENERIC
--- OUTSIDE RECORDS SUMMARY | 2024-11-23 06:42 | XMS_ITS | Patient Health Record ---
Author Organization [facility] Address [address] [place] [address] Care Team Providers Care Shade Bander Name Role Phone KemiRobyn ring Unavailable [phone] Reason For Referral No Information Problems No Known Problems Plan Of Treatment No Information Insurance Providers Payer Name Payer Address Payer Phone Subscriber Number Group Number Insured Name Patient Relationship to Insured Coverage Start Date Coverage End Date [facility] [address] [place] [address] [id number] Lawrence Bustamante Self - patient is the insured Medical (General) History Medical History History ICD Code Back,Hip,and Knee pain Chicken pox Surgical History Surgery Date(Month/Year) right hand 2007
--- NOTE | 2024-11-23 07:52 | A.OFFPC_ITS ---
Intake Visit Reasons: Follow up Leg pain Allergies No Known Allergies Allergy (Verified 11/23/24 07:52) Medication List - Last Reconciled 11/23/24 by ROSALINO CarpenterP- alprazolam 0.5 mg PO BEDTIME PRN baclofen 10 mg PO BID 90 days blood-glucose sensor (FreeStyle Faizan 3 Sensor device) Test blood sugar 4 times per day buspirone 5 mg PO BID 90 days empagliflozin 25 mg PO QAM FreeStyle Faizan 3 Plus Sensor (blood-glucose sensor) Test blood sugar 4 times per day NS gabapentin 800 mg (2 x 400 mg) PO TID 30 days ibuprofen (Advil) 400 mg PO Q8H PRN magnesium oxide 400 mg PO DAILY metformin 1,000 mg PO BID 90 days morphine 15 mg PO BID PRN 5 days tadalafil (Cialis) 5 mg PO DAILY 90 days Tobacco use date assessed: 08/04/24 Dental Screening Dental Screen Date: 08/04/24 HPI Follow up Leg pain HPI Details History of Present Illness The patient is a 54-year-old male presenting with ongoing lower back pain with radiculopathy. The patient has a history of degenerative disc disease and spondylosis, which has been evaluated by a spinal specialist and neurosurgeon. The specialists were more concerned with his cervical spine, and there was [facility] lumbar [facility] issues. He has been receiving injections from [facility], with the first injection providing significant relief (lumbar). 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 Subsequent injections were less effective, with the third injection providing no relief and a third injection administered on 09/30 at [place]. The patient has been advised to consider another injection and to discuss potential ablation or spinal stimulator options with his specialist. Review of Systems - Neurological: Denies signs and symptom s of cauda equina. Plan 1. Lower Back Pain With Radiculopathy The patient is advised to continue with another injection as previous ones have had varying effectiveness. Discussion with a specialist regarding potential ablation or spinal stimulator is recommended for further management. Discussion Notes I discussed with the patient the varying effectiveness of the injections he has received and recommended another injection. We also talked about the possibility of discussing ablation or a spinal stimulator with his specialist for long-term management of his lower back pain with radiculopathy. Patient Instructions - Schedule another injection as wendy dElisabet - Follow up with your specialist to disc uss potential ablation or spinal stimulator options. [facility] Medical History History of Lyme disease Neuropathic pain, leg, bilateral Cough Chills Diabetes Erectile dysfunction Surgical History Hx of colonoscopy Family History Sister Mental health disorder New onset a-fib Hypertrophic obstructive cardiomyopathy (HOCM) Mother Mental health disorder COPD (chronic obstructive pulmonary disease) Heart attack Father Heart attack Paternal Grandfather Heart attack Social History Housing: House Are you a primary school childcare attendant to a significant other at home: No Do you presently have visiting nurse or other home services: No Alcohol intake: never Comment: medicated Patient Tobacco Use Status: Former Tobacco user Tobacco use type: Cigarette e-Cigarette/Vaping Use: Never Used Second Hand Smoke Exposure: No service: No Current occupational status: employed 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 Current occupational exposures/hazards: No Cognitive needs: No Hearing needs: No Vision needs: No Questionnaire Thrive Questionnaire Date Thrive assessed: 05/03/24 I am a: Patient What is your living situation today?: I have a steady place to live Within the past 12 months, did the food you bought not last and you didn't have the money to get more?: I choose not to answer this question Within the past 12 months, did you worry whether your food would run out before you got money to buy more?: I choose not to answer this question Do you have trouble paying for medicines?: I choose not to answer this question Do you have trouble getting transportation to medical appointments?: I choose not to answer this question Do you have trouble paying your heating and electricity bill?: I choose not to answer this question Do you have trouble taking care of your child, family member or friend?: I choose not to answer this question Do you have trouble with day-to-day activities such as bathing, preparing meals, shopping, managing finances, etc.?: I choose not to answer this question Are you currently unemployed and looking for a job?: I choose not to answer this question Are you interested in more education?: I choose not to answer this question Please select the resources that you would like help with: None Currently or been in a relationship where the following occur: I choose not to answer THRIVE Score: 0 Physical exam (Primary Care) Tobacco/Smoking Status: Tobacco use Status Tobacco use date assessed 08/04/24 09/07/24 08:07 Patient Tobacco Use Status Former Tobacco user 09/30/24 12:40 Tobacco use type Cigarette 09/07/24 08:07 e-Cigarette/Vaping Use Never Used 09/07/24 08:07 Thrive Assessment: Date of Thrive Assessment Date Thrive assessed 05/03/24 09/07/24 08:07 Currently or been in a relationship where the following occur: I choose not to answer Telehealth Telehealth Telehealth Platform: D[employer] Location of provider rendering services: practice address Location of patient: address on file Patient Identification confirmed using: Name, : Yes Telehealth method: video Patient verbally consented to treatment: Yes Patient verbally consented to billing insurance company: Yes Patient informed of any privacy concerns related to visit: Yes Minutes spent on Phone/Video with Pt.: 40 Coding Level of Care Code Est Pt Level 4 (13841) Diagnoses Neuropathic pain, leg, bilateral G57.93 Lumbosacral spondylosis M47.817 Degeneration of intervertebral disc of lumbar region with lower extremity pain M51.361 Disc-related pain type: lower extremity pain only Assessment & Plan Assessment & Plan (1) Neuropathic pain, leg, bilateral: Code(s): G57.93 - Unspecified mononeuropathy of bilateral lower limbs Category: Medical (2) Lumbosacral spondylosis: Code(s): M47.817 - Spondylosis without myelopathy or radiculopathy, lumbosacral region Category: Medical (3) Lumbar degenerative disc disease: Code(s): M51.369 - Other intervertebral disc degeneration, lumbar region without mention of lumbar back pain or lower extremity pain Category: Medical Qualifiers: Disc-related pain type: lower extremity pain only Qualified Code(s): M51.361 - Other intervertebral disc degeneration, lumbar region with lower extremity pain only Plan .
== END 2024-11-23 11:58 | disposition home or self-care (01) ==
LOC: HO.HMCC 06:39
PROVIDERS: PCP Nurse Practitioner Family; Visit Provider Nurse Practitioner Family
DX: G57.93 Unspecified mononeuropathy of bilateral lower limbs (principal); M47.817 Spondylosis without myelopathy or radiculopathy, lumbosacral region; M51.361 Other intervertebral disc degeneration, lumbar region with lower extremity pain only

== ENCOUNTER 2024-11-30 14:27 | Outpatient (REF) | payer OTHER, SELFPAY ==
[2024-11-30 16:52] LABS: Prostate Specific Antigen 1.09 ng/mL (<0.05-4.0)
--- OUTSIDE RECORDS SUMMARY | 2024-11-30 20:38 | XMS_ITS | Patient Health Record ---
Author Organization [facility] Address [address] [place] [address] Care Team Providers Care Route Sales Driver Name Role Phone KemiRobyn ring Unavailable [phone] Reason For Referral No Information Problems No Known Problems Plan Of Treatment No Information Insurance Providers Payer Name Payer Address Payer Phone Subscriber Number Group Number Insured Name Patient Relationship to Insured Coverage Start Date Coverage End Date [facility] [address] [place] [address] [id number] Lawrence Bustamante Self - patient is the insured Medical (General) History Medical History History ICD Code Back,Hip,and Knee pain Chicken pox Surgical History Surgery Date(Month/Year) right hand 2007
--- OUTSIDE RECORDS SUMMARY | 2024-11-30 20:38 | XMS_ITS | Clinical Summary ---
Author Organization [facility] Address [address] [place] [address] Phone Care Team Providers Care Manager Technical Sales Name Role Phone Aleksandra Gee NP Primary [...] Not [place] [id number] [facility] [place] [address] [place] [address] [place] [address] [place] [address] [facility] [place] [place] [address] H[facility] Care Teams Manager Technical Sales Relationship Specialty Start Date End Date Aleksandra Gee NP [facility] [employer] [address] [place] [address] [email or web address] PCP - General Family Medicine 08/10/18 Additional Source Comments The information contained in this document represents components of the legal health record. It is not the complete legal health record.[facility]
--- OUTSIDE RECORDS SUMMARY | 2024-11-30 20:38 | XMS_ITS | Clinical Summary ---
Author Organization [address] Address [address] [place] [address] Phone Care Team Providers Care School Examiner Name Role Phone Unavailable Primary Care Provider [...] - 5.1 mmol/L 11/24/2022 1:02 AM EDT [facility] Chloride 106 98 - 107 mmol/L 11/24/2022 1:02 AM EDT + HOSPITAL [facility]AT[facility] CO2 27 21 - 32 mmol/L 11/24/2022 1:02 AM EDT L + [facility] Anion Gap 7 5 - 15 mmol/L 11/24/2022 1:02 AM EDT + [facility] Calcium 8.4(L) 8.5 - 10.1 mg/dL 11/24/2022 1:02 AM EDT + [facility] eGFR (Creatinine) >60 >=60 mL/min/1.7 3m2 11/24/2022 1:02 AM EDT [facility] Comment: Values < 60 mL/min/1.73 m2 may indicate CKD if present for more than three months AND creatinine is at steady state. The eGFR provides a rough estimate of kidney function. On 09/24/21 all [facility] Clinical Labs and [facility] began using a pvo-mqmv-wwput formula for estimating GFR called CKD-EPI Creatinine 2020. This equation reports eGFR based on creatinine, patient age, clinical sex, and is standardized to a body surface area of 1.73 m2. For the same creatinine, this new race-free eGFR will be lower than prior reported Black eGFR results and higher than prior Non-Black eGFR results. For further guidance, please refer to the CKD: Adult Bending Machine Set Up Operator Signature pathway. Blood Venipuncture / Unknown 11/24/2022 12:20 AM EDT 11/24/2022 12:30 AM EDT us Lawrence Gallegos MD LAB BLOOD ORDERABLES Final Res ult + [facility] [address] [place] [address] from Last 3 Months or Most Recently Relevant to Health Maintenance Insurance COMMERCIAL GENERIC COMMERCIAL GENERIC COMMERCIAL GENERIC
== END 2024-11-30 14:28 | disposition home or self-care (01) ==
LOC: HO.HMGCLDS 14:27
PROVIDERS: PCP Nurse Practitioner Family; Visit Provider Nurse Practitioner Family
DX: Z12.5 Encounter for screening for malignant neoplasm of prostate (principal); E11.69 Type 2 diabetes mellitus with other specified complication; N52.1 Erectile dysfunction due to diseases classified elsewhere; R39.15 Urgency of urination
CPT/HCPCS: 36415; 84153

== ENCOUNTER 2024-12-01 07:33 | Outpatient (AMB) | payer OTHER, SELFPAY ==
--- NOTE | 2024-12-01 07:36 | A.OFFVIS_ITS ---
Intake Visit Reasons: 1y/PSA Intake Note: Patient presents today for follow up on: nephrolithiasis, erectile dysfunction, and psa lab results 11/30/24 PSA: 1.09 Urology Medications: , tadalafil Blood Thinner: none Logging Engineer Required: No Accompanied by: Self / Same As Patient Allergies No Known Allergies Allergy (Verified 12/01/24 08:25) Medication List - Last Reconciled 12/01/24 by AARON Huston alprazolam 0.5 mg PO BEDTIME PRN baclofen 10 mg PO BID 90 days blood-glucose sensor (FreeStyle Faizan 3 Sensor device) Test blood sugar 4 times per day buspirone 5 mg PO BID 90 days empagliflozin 25 mg PO QAM FreeStyle Faizan 3 Plus Sensor (blood-glucose sensor) Test blood sugar 4 times per day NS gabapentin 800 mg (2 x 400 mg) PO TID 30 days ibuprofen (Advil) 400 mg PO Q8H PRN magnesium oxide 400 mg PO DAILY metformin 1,000 mg PO BID 90 days morphine 15 mg PO BID PRN 5 days tadalafil (Cialis) 5 mg PO DAILY 90 days HPI Comments Details: Lawrence is a 54-year-old male patient of Dr. Jennings. He presents to the office today for follow-up of his ongoing lower urinary tract symptoms dysfunction and erectile dysfunction. In discussion with the patient today reports to be doing and feeling well. He reports compliance with 5 mg of tadalafil as prescribed. He does report how helpful this has been with obtaining and maintaining his erections. He does however continue to report episodes of urinary dribbling/urge incontinence. We did discuss further treatment options and risks and benefits of these treatment options. In office urinalysis results reviewed with the patient today. We discussed at length affects of diabetes on lower urinary tract symptoms, bladder erectile dysfunction as well as overall health and well-being. Recent PSA results reviewed with the patient today as noted and trended below: PSA: 12/02 1.2, 12/03 1.1 A1c: 08/31 8.0, 01/01 6.9, 09/01 7.5, 01/02 6.7, 05/03 6.7 In review of patient's chart it appears most recent CT 12/02 there are multiple tiny bilateral nonobstructing renal stones measuring up to 2 mm within the left lower pole. No ureteral stones. No hydronephrosis or hydroureter noted. The bladder is unremarkable. No bladder wall thickening. He otherwise denies incontinence, nocturia, hematuria, dysuria, foul smelling urine, changes to urinary stream, flank pain, fever, and or chills. All questions were answered. He is also enquiring vasectomy. He otherwise offers no other issues or concerns at this time. [facility] Medical History History of Lyme disease Neuropathic pain, leg, bilateral Cough Chills Diabetes Erectile dysfunction Surgical History Hx of colonoscopy Family History Sister Mental health disorder New onset a-fib Hypertrophic obstructive cardiomyopathy (HOCM) Mother Mental health disorder COPD (chronic obstructive pulmonary disease) Heart attack Father Heart attack Paternal Grandfather Heart attack Social History Housing: House Are you a primary caregivers homecare to a significant other at home: No Do you presently have visiting nurse or other home services: No Alcohol intake: never Comment: medicated Patient Tobacco Use Status: Former Tobacco user Tobacco use type: Cigarette e-Cigarette/Vaping Use: Never Used Second Hand Smoke Exposure: No service: No Current occupational status: employed 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 Current occupational exposures/hazards: No Cognitive needs: No Hearing needs: No Vision needs: No Review of Systems Const All systems reviewed & are unremarkable except as noted in HPI and below Physical Exam Const General: cooperative, healthy appearing, comfortable, no acute distress, well developed, alert and awake Nutritional Appearance: overweight Orientation/consciousness: patient oriented x3 Limitations: no limitations HEENT Head: Yes normal to inspection, Yes normocephalic and Yes atraumatic Ears: hearing grossly normal bilaterally Eyes General: appearance normal, both eyes and all related structures Neck Neck: Yes normal visual inspection and Yes trachea midline Chest Chest palpation & inspection: normal inspection of the chest Resp Effort & Inspection: normal respiratory effort and able to speak in complete sentences Cardio Rate: regular rate GI Inspection: Yes normal to inspection General: Yes no CVA tenderness Back/Spine/Pelvis Back: no CVA tenderness Skin General skin exam: no rashes or lesions noted Neuro General: patient oriented x3 Extrem General: Yes normal to inspection Psych Appearance: grossly normal and well kempt Mental Status: mental status grossly normal Speech and movement: Normal speech and movement present and Clear speech present Affect: normal affect Attitude: cooperative Thought process: Normal thought process present Thought content: Normal thought content present Insight: Fair insight present (Psych) Judgement: Fair judgement present (Psych) Results AMB Urinalysis, Automated UA Leukoctes 0 Svetlana/uL Last Edit by Della Sesay [facility] on 12/01/24 07:47 UA Nitrite Negative Last Edit by Dellajacky Sesay [facility] on 12/01/24 07:47 UA Urobilinogen 0.2 mg/dL Last Edit by Dellaaliya Sesay [facility] on 12/01/24 07:47 UA Protein 0 mg/dL Last Edit by Dellaaliya Sesay [facility] on 12/01/24 07:47 UA pH 6.0 Last Edit by Dellaaliya Sesay [facility] on 12/01/24 07:47 UA Blood 0 Aroldo/uL Last Edit by Della Lázaro [facility] on 12/01/24 07:47 UA Specific [place] 1.015 Last Edit by Della Lázaro [facility] on 12/01/24 07:4 7 UA Ketone Negative Last Edit by Dellajacky Sesay [facility] on 12/01/24 07:47 UA Bilirubin 0 mg/dL Last Edit by Dellajacky Sesay [facility] on 12/01/24 07:47 UA Glucose 1000 mg/dL Last Edit by Dellajacky Sesay [facility] on 12/01/24 07:47 Results Reviewed Results Reviewed: Laboratory Last Values Urine pH (Auto) 6.0 12/01/24 07:46 Specific [place] (Auto) 1.015 12/01/24 07:46 Urine Protein (Auto) 0 mg/dL 12/01/24 07:46 Glucose (UA)(Auto) 1000 mg/dL 12/01/24 07:46 Urine Ketones (Auto) Negative 12/01/24 07:46 Urine Blood (Auto) 0 Aroldo/uL 12/01/24 07:46 Urine Nitrite (Auto) Negative 12/01/24 07:46 Urine Bilirubin (Auto) 0 mg/dL 12/01/24 07:46 Urine Urobilinogen (Auto) 0.2 mg/dL 12/01/24 07:46 Leukocyte Esterase (Auto) 0 Svetlana/uL 12/01/24 07:46 Assessment & Plan Assessment & Plan (1) Bladder wall thickening: Code(s): N32.89 - Other specified disorders of bladder Category: Medical (2) Urinary urgency: Code(s): R39.15 - Urgency of urination Category: Medical (3) Urinary dribbling: Code(s): N39.43 - Post-void dribbling Category: Medical (4) Erectile dysfunction associated with type 2 diabetes mellitus: Code(s): E11.69 - Type 2 diabetes mellitus with other specified complication; N52.1 - Erectile dysfunction due to diseases classified elsewhere Category: Medical (5) Nephrolithiasis: Code(s): N20.0 - Calculus of kidney Category: Medical Plan In office urinalysis results reviewed with the patient today; as noted above. Recent PSA results reviewed with the patient today; as noted above. We discussed at length importance of managing diabetes for improvement in urinary urgency as well as erectile dysfunction in overall health and well- being. We discussed at length potential causes of ED as well as further treatment options and risks and benefits of these treatment options He reports current management to be working; will continue Continue Cialis 5 mg daily; refill provided We discussed pelvic floor exercises Will obtain retroperitoneal ultrasound. Will obtain PSA in 1 year. Patient would like assessment evaluation for vasectomy Follow-up in 1-3 months for vasectomy evaluation; or sooner with any issues, concerns, and or questions. Orders: Orders Prostate Specific Antigen 1 Year N32.89 - Other specified disorders of bladder, N39.43 - Post-void dribbling, R39.15 - Urgency of urination US retroperitoneal comp Today E11.69 - Type 2 diabetes mellitus with other specified complication, N20.0 - Calculus of kidney, N32.89 - Other specified disorders of bladder, N39.43 - Post-void dribbling, N52.1 - Erectile dysfunction due to diseases classified elsewhere, R39.15 - Urgency of urination Medications: Changed From tadalafil (Cialis) [id number] [facility] [id number] Member [id number] 5 mg PO DAILY 90 days 90 tabs 3RF To tadalafil (Cialis) [id number] [facility]33 Member [id number] 5 mg PO DAILY 90 tabs 4RF 90 days Patient Instructions: The patient had an opportunity to ask questions regarding the treatment plan. All questions were answered. Physical exam, labs, and imaging were discussed and reviewed in detail. As well as risks, benefits, and discussion of treatment choices. No major barriers to understanding were identified. The patient expressed understanding and agreement with the above treatment plan. The patient was made aware they should contact our office by phone for worsening of their current condition, the appearance of new symptoms, or with any questions or concerns. Compliance is encouraged with any medications and follow up testing that is ordered. It is a privilege to be allowed the opportunity to participate in? your urological care.? Again, if you have any questions or concerns If you have any questions or concerns please do not hesitate to contact me. The office is [phone]. This note is constructed using voice recognition software. While every effort has been made to ensure accuracy funeral workers errors may have been included. Yours sincerely, AARON Huston Coding Level of Care Code Est Pt Level 4 (47617) Diagnoses Bladder wall thickening N32.89 Urinary urgency R39.15 Urinary dribbling N39.43 Erectile dysfunction associated with type 2 diabetes mellitus E11.69; N52.1 Nephrolithiasis N20.0
--- OUTSIDE RECORDS SUMMARY | 2024-12-01 07:37 | XMS_ITS | Clinical Summary ---
Author Organization [address] Address [address] [place] [address] Phone Care Team Providers Care Computer Aided Design Technician Name Role Phone Unavailable Primary Care Provider [...] - 5.1 mmol/L 11/24/2022 1:02 AM EDT [facility]ITAL LAB[facility] Chloride 106 98 - 107 mmol/L 11/24/2022 1:02 AM EDT + HOSPITAL LABORATORY CO2 27 21 - 32 mmol/L 11/24/2022 1:02 AM EDT L + [facility] Anion Gap 7 5 - 15 mmol/L 11/24/2022 1:02 AM EDT + [facility] Calcium 8.4(L) 8.5 - 10.1 mg/dL 11/24/2022 1:02 AM EDT + [facility] eGFR (Creatinine) >60 >=60 mL/min/1.7 3m2 11/24/2022 1:[address] [facility] Comment: Values < 60 mL/min/1.73 m2 may indicate CKD if present for more than three months AND creatinine is at steady state. The eGFR provides a rough estimate of kidney function. On 09/24/21 all [facility] Clinical Labs and [facility] began using a ami-dxlv-alfux formula for estimating GFR called CKD-EPI Creatinine 2020. This equation reports eGFR based on creatinine, patient age, clinical sex, and is standardized to a body surface area of 1.73 m2. For the same creatinine, this new race-free eGFR will be lower than prior reported Black eGFR results and higher than prior Non-Black eGFR results. For further guidance, please refer to the CKD: Adult Director [employer] Signature pathway. Blood Venipuncture / Unknown 11/24/2022 12:20 AM EDT 11/24/2022 12:30 AM EDT us Lawrence Gallegos MD LAB BLOOD ORDERABLES Final Res ult + [facility] [address] [place] [address] from Last 3 Months or Most Recently Relevant to Health Maintenance Insurance COMMERCIAL GENERIC COMMERCIAL GENERIC COMMERCIAL GENERIC
--- OUTSIDE RECORDS SUMMARY | 2024-12-01 07:37 | XMS_ITS | Patient Health Record ---
Author Organization [facility] Address [address] [place] [address] Care Team Providers Care Clean Room Operator Name Role Phone KemiRobyn ring Unavailable [phone] Reason For Referral No Information Problems No Known Problems Plan Of Treatment No Information Insurance Providers Payer Name Payer Address Payer Phone Subscriber Number Group Number Insured Name Patient Relationship to Insured Coverage Start Date Coverage End Date [facility] All [facility] [address] [place] [address] [phone] [id number] Lawrence Bustamante Self - patient is the insured Medical (General) History Medical History History ICD Code Back,Hip,and Knee pain Chicken pox Surgical History Surgery Date(Month/Year) right hand 2007
--- OUTSIDE RECORDS SUMMARY | 2024-12-01 07:37 | XMS_ITS | Clinical Summary ---
Author Organization [facility] Address [address] [place] [address] Phone Care Team Providers Care Woodworking Machine Feeder Name Role Phone Aleksandra Gee NP Primary [...] [place] [id number] [facility] [place] [address] [place] [address] [place] [address] [place] [address] [facility] [address] [place] [address] HMO Care Teams Woodworking Machine Feeder Relationship Specialty Start Date End Date Aleksandra Gee NP [facility] [employer] [address] [place] [id number] [email or web address] PCP - General Family Medicine 08/10/18 Additional Source Comments The information contained in this document represents components of the legal health record. It is not the complete legal health record.[facility]
== END 2024-12-01 08:24 | disposition home or self-care (01) ==
LOC: HO.HUSH 07:34
PROVIDERS: PCP Nurse Practitioner Family; Visit Provider Nurse Practitioner Family
DX: N32.89 Other specified disorders of bladder (principal); R39.15 Urgency of urination; N39.43 Post-void dribbling; E11.69 Type 2 diabetes mellitus with other specified complication; N52.1 Erectile dysfunction due to diseases classified elsewhere; N20.0 Calculus of kidney
CPT/HCPCS: 99214

== ENCOUNTER 2025-01-17 07:19 | Outpatient (REF) | payer OTHER, SELFPAY ==
--- OUTSIDE RECORDS SUMMARY | 2025-01-17 07:22 | XMS_ITS | Patient Health Record ---
Author Organization [facility] Address [address] [facility] [place] [address] Care Team Providers Care Quality Control Assistant Name Role Phone KemiRobyn ring Unavailable [phone] Reason For Referral No Information Problems No Known Problems Plan Of Treatment No Information Insurance Providers Payer Name Payer Address Payer Phone Subscriber Number Group Number Insured Name Patient Relationship to Insured Coverage Start Date Coverage End Date [facility] All [facility] [address] [place] [address] [id number] Lawrence Bustamante Self - patient is the insured Medical (General) History Medical History History ICD Code Back,Hip,and Knee pain Chicken pox Surgical History Surgery Date(Month/Year) right hand 2007
--- OUTSIDE RECORDS SUMMARY | 2025-01-17 07:22 | XMS_ITS | Clinical Summary ---
Author Organization [facility] Address [address] [place] [address] Phone Care Team Providers Care Merchandising Execution Manager Name Role Phone Aleksandra Gee NP Primary [...] [place] [id number] [facility] [place], [place] [address] [place] [place] [address] [place] [address] [facility] [address] [place] [address] Care Teams Merchandising Execution Manager Relationship Specialty Start Date End Date Aleksandra Gee NP [facility] [address] [employer] [address] [place] [address] [email or web address] PCP - General Family Medicine 08/10/18 Additional Source Comments The information contained in this document represents components of the legal health record. It is not the complete legal health record.[facility]
--- OUTSIDE RECORDS SUMMARY | 2025-01-17 07:22 | XMS_ITS | Clinical Summary ---
Author Organization [address] Address [address] [place] [address] Phone Care Team Providers Care Uniform Patrol Police Officer Name Role Phone Unavailable Primary Care Provider [...] - 5.1 mmol/L 11/24/2022 1:02 AM EDT [facility] HOSPITAL LABORATORY Chloride 106 98 - 107 mmol/L 11/24/2022 1:02 AM EDT + HOSPITAL LABORATORY CO2 27 21 - 32 mmol/L 11/24/2022 1:02 AM EDT L + [facility] Anion Gap 7 5 - 15 mmol/L 11/24/2022 1:02 AM EDT + [facility] Calcium 8.4(L) 8.5 - 10.1 mg/dL 11/24/2022 1:02 AM EDT + [facility] eGFR (Creatinine) >60 >=60 mL/min/1.7 3m2 11/24/2022 1:02 AM EDT [facility] Comment: Values < 60 mL/min/1.73 m2 may indicate CKD if present for more than three months AND creatinine is at steady state. The eGFR provides a rough estimate of kidney function. On 09/24/21 all [facility] Clinical Labs and [facility] began using a qvh-oabe-vzjac formula for estimating GFR called CKD-EPI Creatinine 2020. This equation reports eGFR based on creatinine, patient age, clinical sex, and is standardized to a body surface area of 1.73 m2. For the same creatinine, this new race-free eGFR will be lower than prior reported Black eGFR results and higher than prior Non-Black eGFR results. For further guidance, please refer to the CKD: Adult Diesel Truck Driver Signature pathway. Blood Venipuncture / Unknown 11/24/2022 12:20 AM EDT 11/24/2022 12:30 AM EDT us Lawrence Gallegos MD LAB BLOOD ORDERABLES Final Res ult + [facility] [address] [place] [address] from Last 3 Months or Most Recently Relevant to Health Maintenance Insurance COMMERCIAL GENERIC COMMERCIAL GENERIC COMMERCIAL GENERIC
[2025-01-17 10:25] LABS: Appearance Urine Clear; Glucose Urine UA >=1000 mg/dL (Negative); PH 6.0 (5.0-9.0); Specific Gravity - Urine >= 1.030 (1.005-1.025); UMIC TRIGGER UACC YES
[2025-01-17 10:50] LABS: MANUAL DIFF FLAG NO
[2025-01-17 11:05] LABS: Hematocrit 49.3 % (42.0-52.0); Hemoglobin 16.1 g/dl (14.0-18.0); Imm Gran Abs Auto 0.03 X10*3/uL (0.00-0.03); Imm Gran Pct Auto 0.3 % (0.0-0.4); Lymphocytes Absolute Auto 2.1 X10*3/uL (1.2-4.9); Mean Corpuscular HGB Conc 32.7 g/dl (31.0-36.0); Mean Corpuscular Hemoglobin 28.9 pg (27.0-33.0); Mean Corpuscular Volume 88.5 fL (80.0-98.0); NRBC Abs Auto 0.000 X10*3/uL (0.0-0.012); NRBC Pct Auto 0.0 /100WBC (0.0-0.2); Platelet Count 294 X10*3/uL (160-400); Red Blood Count 5.57 X10*6/uL (4.60-5.80); White Blood Count 9.1 X10*3/uL (4.8-10.8)
[2025-01-17 11:34] LABS: Alanine Aminotransferase 48 U/L (0-40); Albumin Level 4.5 g/dL (3.5-5.0); Alkaline Phosphatase 114 U/L (39-117); Anion Gap 13 (12-20); Aspartate Amino Transferase 19 U/L (5-37); Blood Urea Nitrogen 16 mg/dL (9-16); Calcium 9.3 mg/dL (8.4-10.2); Carbon Dioxide 28 mmol/L (22-29); Chloride 103 mmol/L (96-108); Cholesterol 188 mg/dL (<200); Estimated Glomerular Filt Rate > 60; HDL Cholesterol 41 mg/dL (>40); Potassium 4.5 mmol/L (3.3-5.1); Sodium 139 mmol/L (135-145); Total Protein 7.2 g/dL (6.5-8.0); Triglycerides 160 mg/dL (<150)
== END 2025-01-17 07:20 | disposition home or self-care (01) ==
LOC: HO.HMGCLDS 07:19
PROVIDERS: Absent Provider Nurse Practitioner Family; PCP Nurse Practitioner Family; Visit Provider Internal Medicine
DX: E11.9 Type 2 diabetes mellitus without complications (principal); R07.89 Other chest pain
CPT/HCPCS: 36415; 80048; 80053; 80061; 81001; 83036; 84443; 85025

== ENCOUNTER 2025-02-08 07:29 | Outpatient (AMB) | payer OTHER, SELFPAY ==
--- OUTSIDE RECORDS SUMMARY | 2025-02-08 07:32 | XMS_ITS | Clinical Summary ---
Author Organization [address] Address [address] [place] [address] Phone Care Team Providers Care Product Accountant Name Role Phone Unavailable Primary Care Provider [...] - 5.1 mmol/L 11/24/2022 1:02 AM EDT [facility] HOSPITAL LABORATORY Chloride 106 98 - 107 mmol/L 11/24/2022 1:02 AM EDT + HOSPITAL LABORATORY CO2 27 21 - 32 mmol/L 11/24/2022 1:02 AM EDT L + [facility] Anion Gap 7 5 - 15 mmol/L 11/24/2022 1:02 AM EDT + [facility] Calcium 8.4(L) 8.5 - 10.1 mg/dL 11/24/2022 1:02 AM EDT + [facility] eGFR (Creatinine) >60 >=60 mL/min/1.7 3m2 11/24/2022 1:02 AM EDT [facility] Comment: Values < 60 mL/min/1.73 m2 may indicate CKD if present for more than three months AND creatinine is at steady state. The eGFR provides a rough estimate of kidney function. On 09/24/21 all [facility] Clinical Labs and [facility] began using a [id number]-xfftb formula for estimating GFR called CKD-EPI Creatinine 2020. This equation reports eGFR based on creatinine, patient age, clinical sex, and is standardized to a body surface area of 1.73 m2. For the same creatinine, this new race-free eGFR will be lower than prior reported Black eGFR results and higher than prior Non-Black eGFR results. For further guidance, please refer to the CKD: Adult Teacher Preschool Signature pathway. Blood Venipuncture / Unknown 11/24/2022 12:20 AM EDT 11/24/2022 12:30 AM EDT us Lawrence Gallegos MD LAB BLOOD ORDERABLES Final Res ult + [facility] [address] [place] [address] from Last 3 Months or Most Recently Relevant to Health Maintenance Insurance COMMERCIAL GENERIC COMMERCIAL GENERIC COMMERCIAL GENERIC
--- OUTSIDE RECORDS SUMMARY | 2025-02-08 07:32 | XMS_ITS | Patient Health Record ---
Author Organization [facility] Address [address] [facility] [place] [address] Care Team Providers Care Belly Dump Driver Name Role Phone KemiRobyn ring Unavailable [phone] Reason For Referral No Information Problems No Known Problems Plan Of Treatment No Information Insurance Providers Payer Name Payer Address Payer Phone Subscriber Number Group Number Insured Name Patient Relationship to Insured Coverage Start Date Coverage End Date [facility] All [facility] [address] [place] [address] [id number] Lawrence Bustamante Self - patient is the insured Medical (General) History Medical History History ICD Code Back,Hip,and Knee pain Chicken pox Surgical History Surgery Date(Month/Year) right hand 2007
--- OUTSIDE RECORDS SUMMARY | 2025-02-08 07:32 | XMS_ITS | Clinical Summary ---
Author Organization [facility] Address [address] [place] [address] Phone Care Team Providers Care Integrated Campaign Manager Name Role Phone Aleksandra Gee NP [...] [place] [id number] [facility] [place] [address] [place] [address] [place] [place] [address] [place] [address] [facility] [address] [place] [address] [facility] Address: [address] [address] Care Teams Integrated Campaign Manager Relationship Specialty Start Date End Date Aleksandra Gee NP [facility] [employer] [address] [place] [phone] [email or web address] PCP - General Family Medicine 08/10/18 Additional Source Comments The information contained in this document represents components of the legal health record. It is not the complete legal health record.[facility]
--- NOTE | 2025-02-08 07:34 | A.OFFVIS_ITS ---
Intake Visit Reasons: vasectomy consult Intake Note: New Patient is present for Vasectomy Consult Urology Rx:Tadalafil Blood Thinners:none NKDA Imaging completed: none Smoker:NO #Children: 0 # Expecting : 0 Telephone Worker Required: No Accompanied by: Self / Same As Patient Allergies No Known Allergies Allergy (Verified 02/08/25 09:25) Medication List - Last Reconciled 02/08/25 by VINAY Huston- alprazolam 0.5 mg PO BEDTIME PRN baclofen 10 mg PO BID 90 days blood-glucose sensor (FreeStyle Faizan 3 Sensor device) Test blood sugar 4 times per day buspirone 5 mg PO BID 90 days empagliflozin 25 mg PO QAM FreeStyle Faizan 3 Plus Sensor (blood-glucose sensor) Test blood sugar 4 times per day NS gabapentin 800 mg (2 x 400 mg) PO TID 30 days ibuprofen (Advil) 400 mg PO Q8H PRN magnesium oxide 400 mg PO DAILY metformin 1,000 mg PO BID 90 days morphine 15 mg PO BID PRN 5 days tadalafil (Cialis) 5 mg PO DAILY 90 days HPI Comments Details: Lawrence is a pleasant 54-year-old male patient of Dr. Jennings. He presents to the office today for - vasectomy evaluation Vasectomy evaluation The patient presents for vasectomy consultation.? 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 Vasectomy as intended as a permanent form of control. Printed information and literature was provided to the patient. Overall there is a one in 2500 failure rate. This can occur at any time after vasectomy. Risks were discussed highlighting hematoma, spermatocele, epididymal congestion, development of sperm antibodies, and development of chronic pain estimated between 1-5%. The procedure was reviewed in detail. Anatomical diagrams of the male genitalia were used to explain the location of the vas deferens. The vas deferens will be transected, the proximal end will be cauterized, a metal clip would be applied to separate the 2 vas deferens ends. It was explained the procedure will be done in the office and takes approximately 10-15 minutes. Less common problems that arise with vasectomy include hematoma, bleeding, allergic reaction to anesthetic, epididymal infection, epididymal congestion, scrotal discomfort, spermatic leak, spermatic granuloma and the possibility of antisperm antibodies. He understands these risks and wishes to proceed. Consent was signed at the office today. He also understands that it takes 12 weeks for sperm to fully clear the system. He will need to provide a semen sample at 12 weeks and if this is not clear a 2nd sample at 16 weeks. Medical clearance to stop using protection will only be provided if he satisfies published criteria for sperm clearance. PREVIOUS OFFICE NOTE: Lawrence is a 54-year-old male patient of Dr. Jennings. He presents to the office today for follow-up of his ongoing lower urinary tract symptoms dysfunction and erectile dysfunction. In discussion with the patient today reports to be doing and feeling well. He reports compliance with 5 mg of tadalafil as prescribed. He does report how helpful this has been with obtaining and maintaining his erections. He does however continue to report episodes of urinary dribbling/urge incontinence. We did discuss further treatment options and risks and benefits of these treatment options. In office urinalysis results reviewed with the patient today. We discussed at length affects of diabetes on lower urinary tract symptoms, bladder erectile dysfunction as well as overall health and well-being. Recent PSA results reviewed with the patient today as noted and trended below: PSA: 12/02 1.2, 12/03 1.1 A1c: 08/31 8.0, 01/01 6.9, 09/01 7.5, 01/02 6.7, 05/03 6.7, 02/02 8.1 In review of patient's chart it appears most recent CT 12/02 there are multiple tiny bilateral nonobstructing renal stones measuring up to 2 mm within the left lower pole. No ureteral stones. No hydronephrosis or hydroureter noted. The bladder is unremarkable. No bladder wall thickening. He otherwise denies incontinence, nocturia, hematuria, dysuria, foul smelling urine, changes to urinary stream, flank pain, fever, and or chills. All questions were answered. He is also enquiring vasectomy. He otherwise offers no other issues or concerns at this time. [facility] Medical History History of Lyme disease Neuropathic pain, leg, bilateral Cough Chills Diabetes Erectile dysfunction Surgical History Hx of colonoscopy Family History Sister Mental health disorder New onset a-fib Hypertrophic obstructive cardiomyopathy (HOCM) Mother Mental health disorder COPD (chronic obstructive pulmonary disease) Heart attack Father Heart attack Paternal Grandfather Heart attack Social History Housing: House Are you a primary cardiac care nurse to a significant other at home: No Do you presently have visiting nurse or other home services: No Alcohol intake: never Comment: medicated Patient Tobacco Use Status: Former Tobacco user Tobacco use type: Cigarette e-Cigarette/Vaping Use: Never Used Second Hand Smoke Exposure: No service: No Current occupational status: employed 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 Current occupational exposures/hazards: No Cognitive needs: No Hearing needs: No Vision needs: No Review of Systems Const All systems reviewed & are unremarkable except as noted in HPI and below Physical Exam Const General: cooperative, comfortable, no acute distress, well developed, alert and awake Orientation/consciousness: patient oriented x3 HEENT Head: Yes normal to inspection, Yes normocephalic and Yes atraumatic Ears: hearing grossly normal bilaterally Eyes General: appearance normal, both eyes and all related structures Neck Neck: Yes normal visual inspection and Yes trachea midline Chest Chest palpation & inspection: normal inspection of the chest Resp Effort & Inspection: normal respiratory effort and able to speak in complete sentences Cardio Rate: regular rate GI Inspection: Yes normal to inspection General: Yes no CVA tenderness Back/Spine/Pelvis Back: no CVA tenderness Skin General skin exam: no rashes or lesions noted Neuro General: patient oriented x3 Extrem General: Yes normal to inspection Psych Appearance: grossly normal and well kempt Mental Status: mental status grossly normal Speech and movement: Normal speech and movement present and Clear speech present Affect: normal affect Attitude: cooperative Thought process: Normal thought process present Thought content: Normal thought content present Insight: Fair insight present (Psych) Judgement: Fair judgement present (Psych) Assessment & Plan Assessment & Plan (1) Anxiety about health: Code(s): R45.89 - Other symptoms and signs involving emotional state Category: Medical (2) Vasectomy evaluation: Code(s): Z30.09 - Encounter for other general counseling and advice on contraception Category: Medical Plan We discussed vasectomy at length; risks and benefits; as noted above. All questions were answered. Consent obtained. We discussed semen analysis in office verses fellows kit. Prescriptions provided; we did discussed importance of bringing medication to office day of procedure. Will schedule for in office vasectomy. Follow-up per doctor's orders; or sooner with any issues, concerns, and or questions. Medications: New tramadol Bringing medication to office day of procedure 50 mg PO Q8H PRN 7 tabs 0RF pa in diazepam (Valium) Bringing medication to office day of procedure 2 mg PO DAILY 2 tabs 0RF anxiety R45.89 - Other symptoms and signs involving emotional state Discontinued morphine Partial Fill upon patient request. Discontinued Reason: Patient no longer taking 15 mg PO BID 5 days PRN 15 tabs 0RF pain Patient Instructions: The patient had an opportunity to ask questions regarding the treatment plan. All questions were answered. Physical exam, labs, and imaging were discussed and reviewed in detail. As well as risks, benefits, and discussion of treatment choices. No major barriers to understanding were identified. The patient expressed understanding and agreement with the above treatment plan. The patient was made aware they should contact our office by phone for worsening of their current condition, the appearance of new symptoms, or with any questions or concerns. Compliance is encouraged with any medications and follow up testing that is ordered. It is a privilege to be allowed the opportunity to participate in? your urological care.? Again, if you have any questions or concerns If you have any questions or concerns please do not hesitate to contact me. The office is [phone]. This note is constructed using voice recognition software. While every effort has been made to ensure accuracy medical transcriptionist errors may have been included. Yours sincerely, AARON Huston Coding Level of Care Code Est Pt Level 4 (20316) Diagnoses Anxiety about health R45.89 Vasectomy evaluation Z30.09
== END 2025-02-08 08:29 | disposition home or self-care (01) ==
LOC: HO.HUSH 07:29
PROVIDERS: PCP Nurse Practitioner Family; Visit Provider Nurse Practitioner Family
DX: R45.89 Other symptoms and signs involving emotional state (principal); Z30.09 Encounter for other general counseling and advice on contraception
CPT/HCPCS: 99214